=== PATIENT | female | born 1945 | race Caucasian/White ===

== ENCOUNTER → 2019-06-08 08:51 | Outpatient (CLI) | payer MEDICARE, SELFPAY ==
[2019-06-08] VITALS (7 sets, daily range): BP systolic 100–124; BP diastolic 61–73; PULSE 73–87; RESP 16–18; TEMP 36.1–36.4; O2SAT 96–99; BMI 24.7
== END ==
PROVIDERS: Referring Provider Internal Medicine Hematology & Oncology; Visit Provider Internal Medicine Hematology & Oncology
DX: D64.9 Anemia, unspecified (principal)
CPT/HCPCS: 36430; 86850; 86900; 86901; 86920; 86922; J7040; P9016; A4216

== ENCOUNTER 2019-06-28 07:13 | Day surgery (SDC) | payer MEDICARE, SELFPAY ==
[2019-06-08 10:08] VITALS: BMI 24.7
--- NOTE | 2019-06-27 18:38 | PCM.HP.BLA ---
History and Physical Date of Admission: 06/28/19 Stefanie Rod 1945 ? ? REFERRING PHYSICIAN: Medardo Harden, ? CHIEF COMPLAINT: Consult ? HPI: The patient is a 74 year old female presents with exhausted vascular access and need for portacath placement as recommended by her radiation oncologist She denies previous central venous line catheter placements. Denies history of deep venous extremity blood thromboses. Denies history of clavicular/rib/neck fractures. Presently on prednisone short term for pain. Attempt at [facility] was unsuccessful due to anatomic anomaly. Will attempt right IJ placement using US guidance. ? ? PAST MEDICAL HISTORY ? Anemia ? ? Anxiety disorder ? ? Blood dyscrasia ? ? myelodysplastic syndrom ? Chronic diarrhea ? ? since cholecystectomy in 2004, on colestipol ? Crohn's disease (HCC) ? ? s/p surgery ? Emphysema of lung (HCC) ? ? quit smoking September 2015, stable, not on inhalers ? Hypertension ? ? Intrahepatic cholangiocarcinoma (HCC) ? ? MVP (mitral valve prolapse) ? ? Snoring ? ? PAST SURGICAL HISTORY ? LIVER BIOPSY ? 10/08/2015 ? PAST SURGICAL HISTORY OF ? 1973 ? exploratory and small bowel resection ? PAST SURGICAL HISTORY OF ? 1977 ? ileostomy ? PAST SURGICAL HISTORY OF ? 1978 ? reversal of ileostomy ? PAST SURGICAL HISTORY OF ? 1983 ? bowel block and adhesions removed ? PAST SURGICAL HISTORY OF ? 1982 ? hysterectomy ? PAST SURGICAL HISTORY OF ? 2004 ? cholecytectomy ? TOTAL HIP REPLACEMENT ? 2011 ? Left hip ? ? Current Outpatient Medications ? gabapentin (NEURONTIN) 300 mg capsule Take 1 capsule by mouth twice daily for 30 days. ? ibuprofen (MOTRIN) 600 mg tablet Take 1 tablet by mouth every 8 hours as needed. FOR PAIN. ? predniSONE (DELTASONE) 10 mg tablet Take 1.5 tablets by mouth once daily. ? LORazepam (ATIVAN) 0.5 mg tab Take 0.5 mg by mouth three times daily as needed. ? omeprazole (PRILOSEC) 20 mg capsule Take 2 capsules by mouth once daily. ? ondansetron (ZOFRAN) 8 mg tablet Take 1 tablet by mouth every 8 hours as needed. ? epoetin kayli-epbx (RETACRIT) 40,000 unit/mL injection Inject 40,000 Units subcutaneously. Every week for HGB <10 ? cyanocobalamin 1,000 mcg/mL soln Inject 1,000 mcg intramuscularly once every month. ? APRISO 0.375 gram capsule Take two capsules by mouth once daily. ? ARIPiprazole (ABILIFY) 10 mg tablet Take 10 mg by mouth once daily. ? metoprolol tartrate, short acting, (LOPRESSOR) 25 mg tablet Take 25 mg by mouth once daily. ? potassium chloride ER (K-DUR, KLOR-CON) 20 mEq tablet Take 1 tablet by mouth once daily. ? fluticasone (FLONASE) 50 mcg/actuation nasal spray Use 2 Sprays in each nostril as needed. ? ZOLMitriptan (ZOMIG) 5 mg tablet Take 5 mg by mouth as needed. ? Hydrochlorothiazide 12.5 mg capsule Take 12.5 mg by mouth once daily. ? LACTOBACILLUS RHAMNOSUS GG (CULTURELLE ORAL) Take 1 capsule by mouth once daily. ? COLESTIPOL 1 GRAM TAB Take two tablets by mouth twice daily. ? duloxetine hcl(CYMBALTA 60 MG CAP) Take one(1) capsule daily BY MOUTH. ? multivitamins w-minerals/lut(CENTRUM SILVER TAB) Take one(1) tablet daily BY MOUTH. ? calcium carb/vit d3/minerals(CALTRATE 600+D PLUS MINERALS 600 MG (1,500 MG)-400 UNIT CHEWABLE TAB) Take one(1) ? cetirizine hcl(ZYRTEC 10 MG TAB) Take one tablet by mouth once daily as needed. ? ? ALLERGIES: Erythromycin; Levaquin [Levofloxacin]; Penicillins; Prednisone; Sulfa (Sulfonamide Antibiotics) ? PERSONAL HISTORY: Tobacco Use ? Smoking status: Former Smoker ? ? Packs/day: 1.00 ? ? Years: 45.00 ? ? Pack years: 45.00 ? ? Types: Cigarettes ? ? Last attempt to quit: 10/07/2015 ? ? Years since quittin.7 ? Smokeless tobacco: Never Used Substance Use Topics ? Alcohol use: No ? ? Comment: rarely ? Drug use: No ? FAMILY HISTORY ? Emphysema Mother ? ? Heart Mother ? ? Hypertension Father ? ? Heart Father ? ? other (Lung Cancer) Father ? ? other (Lung Cancer) Sister ? ? Heart Brother ? ? ? Nursing Notes: Stephani Howell RN 06/22/2019 2:12 PM Signed REVIEW OF SYSTEMS: General: The patient notes fatigue, denies weight loss, denies weight gain, denies feeling hot, and denies feelings of cold. Eyes: The patient denies glaucoma, denies eye injury/surgery, wears glasses or contacts. Ear/Nose/Throat: The patient notes allergies, denies hayfever, denies ear infections, and denies bloody noses. Cardiovascular: The patient denies chest pain, denies heart disease, notes high blood pressure,denies cardiac stent, denies prior heart attack, denies irregular heart beat, denies high cholesterol, denies poor circulation, denies heart failure, other cardiac issues, denies claudication, denies cold feet, denies peripheral arterial stent. Respiratory: The patient denies tuberculosis, denies pneumonia, denies frequent cough, denies pulmonary embolism, notes shortness of breath, and denies coughing up blood. Gastrointestinal: The patient denies difficulty swallowing, notes acid reflux, denies ulcers, denies vomiting, denies jaundice/hepatitis, denies gallbladder problems, denies black or tarry stools, denies hemorrhoids, denies bleeding from rectum, denies diverticulitis, denies constipation, notes diarrhea, denies loss of stool control, and denies hernias. Kidney/Bladder: The patient denies kidney stones, denies urine infections, and denies bloody urine. Skin: The patient denies a history of skin cancer, denies bleeding/changing moles, and denies a history of skin rash. Neurologic: The patient denies a history of epilepsy/convulsions, denies headaches, denies head/spinal injuries, and denies stroke/TIA. Psychiatric: The patient denies psychiatric medications, notes depression, and denies voices, denies substance abuse. Endocrine: The patient denies thyroid disorders, denies diabetes, and denies hormonal problems. Hematologic: The patient denies a history of bruising, denies bleeding, and denies anemia, denies blood clots. Infections: The patient denies a history of measles and mumps, denies rheumatic fever, and denies sexually transmitted diseases. Musculoskeletal: The patient denies back pain/injury, notes back problems, denies sciatica, denies knee/foot trouble, denies arthritis, or denies gout. ? ? PHYSICAL EXAMINATION: General: The patient is 74 year old female, well nourished, well hydrated in no acute distress. The patient is oriented to time, place, and person. VITALS: Blood pressure 124/70, pulse (!) 131, temperature 36.3 ?C (97.3 ?F), temperature source Temporal Artery, weight 65.3 kg (144 lb), SpO2 99 %. Body mass index is 25.32 kg/m?. Head ? Normocephalic. EOM intact with sclera clear and no icterus noted. Wearing glasses. Mouth with mucus membranes moist. Neck - supple with no jugular venous distention noted. Trachea is midline. No masses noted. Lungs ? clear to auscultation. Normal breath sounds No rales/rhonchi/wheezing noted. No labored breathing noted, such as retractions. No cough heard. Heart ? normal S1 and S2 auscultated. No rubs/clicks/murmurs noted. Regular rate. Abdomen ? soft and benign. Normal bowel sounds. No abdominal bruits noted. Extremities ? no calf tenderness noted. No pitting edema noted. Skin ? normal skin integrity though loss of dermal integrity, easy bruising noted Lymph ? no cervical adenopathy detected, no supraclavicular adenopathy detected Neurological ? gait normal, no focal deficits noted. Psych ? calm and appropriate ? IMPRESSION: need for vascular access ? PLAN: I have discussed the above with the patient. I have shown her a sample of the portacath and shown her how it would be positioned, etc. I have offered placement of portacath. I have explained the procedure to the patient. I have counseled the patient as to the risks of the procedure, including but not limited to: infection, bleeding, injury to any blood vessels/nerves, thromboses of the portacath, infection of the portacath, inability to place the portacath, scar tissue, wound infections, complications of anesthesia, etc. ? the patient understands. The patient wishes to proceed. Attempted placement at [facility] was aborted due to anatomical anomaly. Will attempt right IJ placement with US guidance. I have answered all questions to the patient?s satisfaction and the patient has no further questions. . Diagnoses: (C22.1) Intrahepatic cholangiocarcinoma (HCC) (primary encounter diagnosis) (Z45.2) Exhausted vascular access Return to Clinic: The patient is instructed to follow-up with me after the procedure
[2019-06-28] VITALS (7 sets, daily range): BP systolic 111–127; BP diastolic 60–69; PULSE 66–75; RESP 16–18; TEMP 36.2–36.6; O2SAT 98–100; BMI 26.1
[2019-06-28] MEDS: Lactated Ringers 1,000 ML 75 ML IV (05:00)
--- NOTE | 2019-06-28 08:51 | DCINST_ITS ---
Discharge Diet: No Restrictions Discharge Activity: Return to Normal Activity, May not drive while taking narcotic pain medications. Call your doctor if your incision/area has: Continuous Slow Oozing, Foul Smelling Discharge Call your doctor if you observe: Fever of 101 or Higher Additional Dressing/Incision Instructions:: Leave dressings in place. The access catheter dressing will be removed by the oncology nurses after they have finished using your portacath. After this is done, you may shower and leave the remaining dressing in place until seen by the oncology nurses again in the following week. Do not soak - no tub baths/swimming Allergies/Adverse Reactions: Allergies erythromycin base Allergy (Verified 06/27/19 11:47) Other levofloxacin [From Levaquin] Allergy (Verified 06/27/19 11:47) Other Penicillins Allergy (Verified 06/27/19 11:47) Other prednisone Allergy (Verified 06/27/19 11:47) Other Sulfa (Sulfonamide Antibiotics) Allergy (Verified 06/27/19 11:47) Other Medications to take at Discharge Calcium Carb/Vitamin D [Os-Williams 500MG + D] 1 tablet PO DAILY@0800 #30 tablet 12/22/15 Colestipol Tablet [Colestid Tablet] 2 gm PO BID #120 tablet 12/22/15 Fluticasone 0.05% [Flonase Nasal [place]] 2 spray NASAL DAILY PRN #1 nasal.sry 12/22/15 Lactobacillus Acidophilus [Acidophilus] 1 tablet PO BID #60 tablet 12/22/15 Pantoprazole Sodium [Protonix] 40 mg PO DAILY #30 tablet 12/22/15 hydroCHLOROthiazide [Hydrochlorothiazide] 12.5 mg PO DAILY #30 capsule 12/22/15 Gabapentin [Neurontin] 300 mg PO BID 06/08/19 Aripiprazole [Abilify] 5 mg PO DAILY 06/27/19 Dexamethasone [Decadron] 4 mg PO DAILY 06/27/19 Duloxetine Hcl [Cymbalta] 2 cap PO DAILY 06/27/19 Metoprolol Tartrate [Lopressor (beta kory)] 25 mg PO DAILY 06/27/19 Primary Care Physician: ELEONORA BALES [Other] Test Results: Test results from this visit will be discussed in further detail at your follow- up appointment, if applicable. Please Follow Up With: Maty Swanson MD - call When: to be seen in 10-14 days for wound check, please call for date and time
--- NOTE | 2019-06-28 08:54 | OP.PCM_ITS ---
Report of Operation Date of Procedure: 06/28/19 Pre-Operative Diagnosis: cholangiocarcinoma, need for IV access Post-Operative Diagnosis: same Surgery/Procedure Performed:: placement of permanent indwelling catheter in right internal jugular vein with subcutaneous port Description of Surgical Findings:: normal right IJ anatomy to SVC Type of Anesthesia:: Local MAC Anesthesiologist: Jarek Antonio Specimen's removed: none Estimated Blood Loss (mL): < 10 ml Fluids Replaced: 600 ml RL Description of Procedure: After informed consent was given, the patient was brought to the Operating Room. Appropriate time out protocol was followed. She was then placed in the supine position. She was then given IV conscious sedation for anesthesia. The patient?s upper chest and neck were then prepped with a surgical skin preparation and sterile surgical drapes were placed. After proper landmarks were ascertained, the skin at the right neck and upper right chest area was then infiltrated with 1% xylocaine with epinephrine. The ultrasound transducer was brought into the operative field for real time imaging. The right internal jugular vein was thus easily identified and localized. A needle trocar was then inserted into the right internal jugular vein using the ultrasound transducer for guidance and there was good aspiration of venous blood. A wire was then threaded into the needle trocar and this was visualized under fluoroscopy to ensure that the wire was in the right internal jugular vein. Once this was done, then the needle trocar was removed. A small skin addy was made with an 11 blade knife at the wire entrance site. The dilator with the introducer sheath attached was then placed over the wire into the right internal jugular vein via the Seldinger technique and this was visualized under fluoroscopy. The dilator and sheath were in proper position as visualized by fluoroscopy. The wire and dilator were then removed. The catheter was then threaded into the introducer sheath and was positioned with its tip at the junction of the superior vena cava and the right atrium as visualized under fluoroscopy. The catheter was flushed with a heparin saline mixture prior to placement. A subcutaneous pocket was then created caudad to the catheter insertion site. A transverse skin incision was made after the skin and subcutaneous tissues were infiltrated with local anesthetic. Blunt dissection was then used to create a space large enough for placement of the subcutaneous port. Hemostasis was carefully controlled with electrocautery. The port was sutured to the subcutaneous fascia using vicryl suture at three sites. The catheter was then tunneled into the subcutaneous pocket. The excess catheter was transected. The catheter was then attached to the subcutaneous port using manager labor relations?s guidelines. The port was then placed in the subcutaneous pocket and the sutures were ligated. The subdermal incisional sites were reapproximated with interrupted vicryl suture. The skin was reapproximated with monocryl suture in a subcuticular fashion. Cavilon and steristrips were used for reinforcement of the skin closure and a sterile opsite dressing was applied. The butterfly access needle was then inserted into the port. Aspiration revealed good influx of blood and the port and access tubing were then flushed with heparinized saline. The patient tolerated the procedure well. Grafts/Implants Used: Bard PowerPort 8F ref [id number], lot [id number], exp 2020-10-10 - Complications none noted - Admit VTE Documentation VTE Present on Admission: Yes VTE Mechan Device Prophylaxis: SCD's
--- NOTE | 2019-06-28 10:07 | RAD_ITS ---
STUDY: X-RAY CHEST REASON FOR EXAM: Female, 74 years old. PORT PLACEMENT TECHNIQUE: Single AP portable view of the chest. COMPARISON: None. FINDINGS: A right-sided portacatheter has been placed. The tip is in the proximal portion of the superior vena cava. Hyperinflation. There is no demonstrated pleural abnormality. Normal size heart. Normal mediastinum and latoya. Normal visualized pulmonary arteries. There is atherosclerotic tortuosity of the aortic arch and descending thoracic aorta. Normal visualized thoracic spine. Normal visualized ribs, clavicles, and shoulders. Surgical clips are seen in the right upper quadrant. RAD/CXR for Line Placement IMPRESSION: The tip of the right-sided portacatheter is in the proximal portion of the superior vena cava. Electronically Signed: Bernard Doyle, at 10:35 EST , Service support ,
== END 2019-06-28 11:10 | disposition home or self-care (01) ==
LOC: SDC 07:14 → AC 07:16
PROVIDERS: Referring Provider Surgery; Visit Provider Surgery
PROC: (CPT 36561; principal; 2019-06-28 08:45)
DX: Z45.2 Encounter for adjustment and management of vascular access device (principal); C22.1 Intrahepatic bile duct carcinoma; D64.9 Anemia, unspecified; F41.9 Anxiety disorder, unspecified; K50.90 Crohn's disease, unspecified, without complications; J43.9 Emphysema, unspecified; I10 Essential (primary) hypertension; I34.1 Nonrheumatic mitral (valve) prolapse; K21.9 Gastro-esophageal reflux disease without esophagitis; G43.909 Migraine, unspecified, not intractable, without status migrainosus; Z78.0 Asymptomatic menopausal state; Z79.899 Other long term (current) drug therapy; Z87.891 Personal history of nicotine dependence
CPT/HCPCS: 00532; 36561; 71045; 77001; J7120; C1788

== ENCOUNTER → 2019-07-27 08:50 | Outpatient (CLI) | payer MEDICARE, SELFPAY ==
[2019-06-28 07:45] VITALS: BMI 26.1
[2019-07-27] VITALS (8 sets, daily range): BP systolic 98–105; BP diastolic 51–87; PULSE 93–115; RESP 16; TEMP 36.3–36.9; O2SAT 98–100; BMI 24.0
== END ==
PROVIDERS: Referring Provider Internal Medicine Hematology & Oncology; Visit Provider Internal Medicine Hematology & Oncology
DX: D46.9 Myelodysplastic syndrome, unspecified (principal)
CPT/HCPCS: 36430; 86850; 86900; 86901; 86920; 86922; J7040; P9016; A4216

== ENCOUNTER → 2019-09-14 09:47 | Outpatient (CLI) | payer MEDICARE, SELFPAY ==
[2019-07-27 09:13] VITALS: BMI 24.0
[2019-09-14 10:09] VITALS: BP 118/57; PULSE 103; RESP 18; TEMP 37.1; O2SAT 100; BMI 25.7
[2019-09-14] MEDS: 0.9% NaCl Peripheral Flush Adult/Peds IV (10:21)
[2019-09-14 10:38] VITALS: BP 105/55; PULSE 88; RESP 18; TEMP 36.8
[2019-09-14 11:38] VITALS: BP 110/50; PULSE 79; RESP 16; TEMP 36.4
[2019-09-14 12:34] VITALS: BP 99/43; PULSE 75; RESP 16; TEMP 36.3; O2SAT 100
== END ==
PROVIDERS: Referring Provider Internal Medicine Hematology & Oncology; Visit Provider Internal Medicine Hematology & Oncology
DX: D46.9 Myelodysplastic syndrome, unspecified (principal)
CPT/HCPCS: 36430; 86850; 86900; 86901; 86920; 86922; J7040; P9016; A4216

== ENCOUNTER 2019-10-03 16:14 | Emergency (ER) | payer MEDICARE, SELFPAY ==
[2019-09-14 10:09] VITALS: BMI 25.7
[2019-10-03 16:16] VITALS: BP 127/93; PULSE 80; RESP 17; TEMP 36.8; O2SAT 100; BMI 26.2
--- NOTE | 2019-10-03 16:23 | VDLE_ITS ---
Reason For Study: swelling Procedure LEFT Exam performed portable in ED. GSV is normal. The exam was abbreviated due to the COVID 19 CFV is compressible, spontaneous, phasic, protocol. competent, and demonstrates normal The exam was diagnostic. augmentation. A preliminary report was called and/or faxed FV is compressible, spontaneous, phasic, to Dr. Wiseman. competent and demonstrates normal augmentation. POP V is compressible, spontaneous, phasic, competent and demonstrates normal augmentation. T/P Trunk is compressible. PTV is compressible. LT PerV is compressible. Interpretation Summary Deep veins of the left lower extremity are patent and compressible segmentally. There is no evidence of left lower extremity deep vein thrombosis. Valvular competence appears intact within the proximal deep venous system on the left . The left great saphenous vein appears patent and compressible segmentally. Ordering Physician: Lalo Wiseman Performed By: Wood Murillo RVT
--- NOTE | 2019-10-03 16:27 | ED.VIS.GEN ---
History of Present Illness Chief Complaint: Lower Extremity Injury Informant: Patient Onset: Days Narrative: Nontraumatic left lower extremity swelling over the past year and a half. Pain worse with ambulation. No chest pains or new shortness of breath. States his history of emphysema. No history of PE or DVT. No recent travel, surgeries, or immobilizations. History of intrahepatic cholangiocarcinoma diagnosed 4 years ago however metastasized this past fall to her spine status post radiation. No chemotherapy. Followed by Dr. Harden. Patient discussed with RN at Dr. Harden's office today return to the ED for evaluation. Denies any fever. Prior similar symptoms: No Past Medical History - Allergies and Home Meds Allergies/Adverse Reactions: Allergies erythromycin base Allergy (Verified 10/03/19 16:15) Other levofloxacin [From Levaquin] Allergy (Verified 10/03/19 16:15) Other Penicillins Allergy (Verified 10/03/19 16:15) Other prednisone Allergy (Verified 10/03/19 16:15) Other Sulfa (Sulfonamide Antibiotics) Allergy (Verified 10/03/19 16:15) Other Primary Care Physician: [facility] ,Out of [Primary Care Provider] - Past Medical History: - - Intrahepatic cholangiocarcinoma, Crohn's disease, COPD, anemia, hypertension, mitral valve prolapse Surgical History: cholecystectomy, hysterectomy, total hip arthroplasty - Left, - - Small bowel resection, ileostomy, reversal of ileostomy, lysis of adhesions. Smoking Status: Former smoker - Family History Maternal Family History: Reports: No pertinent history Paternal Family History: Reports: No pertinent history Review of Systems General: Denies: Chills, Fever, Sweats Eyes: Denies: Visual changes - bilaterally, Diplopia ENT: Denies: Rhinorrhea, Sore throat Cardiovascular: Denies: Chest pain, Palpitations Respiratory: Denies: Dyspnea, Cough, Dyspnea on exertion Gastrointestinal: Denies: Abdominal pain, Nausea, Vomiting, Diarrhea, Melena, Hematochezia Genitourinary: Denies: Dysuria, Hematuria, Frequency Musculoskeletal: Reports: Swelling. Denies: Back pain, Extremity Pain Skin: Denies: Rash, Wounds Neurological: Denies: Headache, Weakness, Numbness Physical Exam Vital Signs/Narrative: Vital Signs Temp Pulse Resp BP Pulse Ox 10/03/19 16:16 98.2 F 80 17 127/93 H 100 Inital Vital Signs reviewed: Yes General: Well nourished, Well developed, No Acute Distress Head: Normocephalic, Atraumatic Eyes: Perrl, EOMI ENT: Moist mucous membranes, No rhinorrhea Neck: Supple, Nontender Cardiovascular: Regular rate, Regular rhythm, No murmurs Respiratory: No distress, CTA bilaterally, Chest nontender Abdomen: Soft, Nontender, Nondistended, Normal bowel sounds Back: Nontender, Normal Inspection Extremities: Nontender, - - Asymmetric 1+ left lower extremity swelling, skin intact, no calf or medial thigh pain. Pulses intact distally. Skin: Normal color, No rash Neurological: Alert, Oriented x3, Cranial nerves II-XII grossly intact, Normal Strength, Normal Sensation Psychological: Normal affect, Normal Mood Diagnostic/Tx/Re-eval Left lower extremity ultrasound: Discussed with residential air sealing technician, negative for DVT. - Medical Decision Making Patient with cancer history, nontraumatic left leg swelling, discussed rule out DVT. She denies any respiratory complaints that are new, vital signs are stable. Ultrasound was ordered, initial order for baseline labs in case anticoagulations were needed. However ultrasound was performed prior to blood draw and results were negative. Discussed peripheral edema at this time, Edward wrap and elevation discussed. Discussed with patient persistent swelling or worsening will likely need re-ultrasound as an outpatient in 1 week. Patient understands and agrees with plan. ED Disposition - Plan for ED Patient: Disposition: Home or Assisted Living Diagnosis: Peripheral edema Instructions: ED Peripheral Edema, Unilateral Referrals: Medardo Harden DO [STAFF PHYSICIAN] - 1 Week [facility] Doctor,Out of [Primary Care Provider] - 3-5 Days Additional Instructions: Ultrasound of your left leg was negative for DVT. Maintain Edward wrap and elevate, if worsening or persists, may need re-ultrasound of left leg in 1 week.
[2019-10-03 17:00] VITALS: BP 108/54; PULSE 74; RESP 18; O2SAT 100
== END 2019-10-03 17:00 | disposition home or self-care (01) ==
LOC: ED 16:51
PROVIDERS: Emergency Provider Emergency Medicine; PCP Internal Medicine Hematology & Oncology
DX: R60.0 Localized edema (principal); J44.9 Chronic obstructive pulmonary disease, unspecified; K50.90 Crohn's disease, unspecified, without complications; I34.1 Nonrheumatic mitral (valve) prolapse; D64.9 Anemia, unspecified; I10 Essential (primary) hypertension; C22.1 Intrahepatic bile duct carcinoma; Z90.49 Acquired absence of other specified parts of digestive tract; Z79.899 Other long term (current) drug therapy; Z87.891 Personal history of nicotine dependence
CPT/HCPCS: 93971; 99282

== ENCOUNTER 2021-06-17 13:50 | Observation (INO) | payer MEDICARE, SELFPAY ==
[2021-06-17] VITALS (10 sets, daily range): BP systolic 116–139; BP diastolic 62–69; PULSE 105–125; RESP 16–28; TEMP 36.6–36.8; O2SAT 97–100; BMI 25.0; BMI 25.8
--- NOTE | 2021-06-17 17:31 | EKG12_ITS ---
Test Reason : SOB Blood Pressure : / mmHG Vent. Rate : 117 BPM Atrial Rate : 117 BPM P-R Int : 158 ms QRS Dur : 076 ms QT Int : 314 ms P-R-T Axes : 071 021 074 degrees QTc Int : 438 ms Sinus tachycardia Low voltage QRS Poor R wave progression Anteroseptal [place], age undetermined Confirmed by MARY ANN CAMACHO, YOHANNES ([id number]), newspaper or periodical editor YADIRA LEON ([id number]) on 06/24/2021 10:47:59 AM Referred By: TIFFANIE Confirmed By:YOHANNES REESE MD
--- NOTE | 2021-06-17 17:39 | ED.VIS.DYS ---
HPI History of Present Illness Chief Complaint: Shortness of Breath Informant: patient Onset/Context/Timing Onset: Days Context: gradual Timing: Continuous Quality: Positive for Dyspnea on exertion Current Severity: Mild Maximum Severity: Moderate Worsened by: Exertion Relieved by: Rest Associated Symptoms Negative for cough, rhinorrhea, post nasal drip, ear pain, fever, sore throat, subjective, chills, sweats, clear sputum, white sputum, yellow sputum or green sputum Chest Pain: Positive for None Narrative Narrative: 76-year-old female history of liver cancer with metastases, anemia that required transfusion in the past, COPD without oxygen at home. History of hypertension mitral valve prolapse. No cardiac history. Has never had a DVT or PE. States has had shortness of breath the last for 5 days. Worse with exertion better with rest. Denies any chest pain. No fever or chills. No new cough or sputum. Really no significant wheezing. She has had mild swelling of both ankles in the last 4 to 5 days also. No hemoptysis. No vomiting diarrhea nor any dysuria. PE Risk Factors: Positive for Cancer; Negative for OCP + Smoking + > 35, Prior DVT or PE, Recent immobilization, Recent surgery and Recent travel Prior similar symptoms: No Recent Illness/Hospitalization: No PFSH [facility] Medical History Liver cancer Metastasis Pulmonary embolism Home Medications acidophilus-pectin, citrus 1 tab PO BID #60 tablet 12/22/15 [Rx Last Taken Unknown] calcium carbonate-vitamin D3 [Oyster Shell Calcium-Vit D3] 1 tab PO DAILY@0800 #30 tablet 12/22/15 [Rx Last Taken Unknown] colestipol [Colestid] 2 g PO BID #120 tablet 12/22/15 [Rx Last Taken 06/28/19 05:35] fluticasone propionate 2 spray NASAL DAILY PRN #1 nasal.sry 12/22/15 [Rx Last Taken Unknown] hydrochlorothiazide 12.5 mg PO DAILY #30 capsule 12/22/15 [Rx Last Taken Unknown] pantoprazole 40 mg PO DAILY #30 tablet 12/22/15 [Rx Last Taken Unknown] gabapentin 300 mg PO BID 06/08/19 [History Last Taken Unknown] aripiprazole 5 mg PO DAILY 06/27/19 [History Last Taken Unknown] dexamethasone 4 mg PO DAILY 06/27/19 [History Last Taken Unknown] duloxetine 2 cap PO DAILY 06/27/19 [History Last Taken Unknown] metoprolol tartrate 25 mg PO DAILY 06/27/19 [History Last Taken Unknown] enoxaparin 60 mg SUBCUT BID 06/17/21 [History Last Taken Unknown] Allergy/AdvReac Type Severity Reaction Status Date / Time erythromycin base Allergy Other Verified 06/17/21 13:55 levofloxacin [From Levaquin] Allergy Other Verified 06/17/21 13:55 Penicillins Allergy Other Verified 06/17/21 13:55 prednisone Allergy Other Verified 06/17/21 13:55 Sulfa (Sulfonamide Allergy Other Verified 06/17/21 13:55 Antibiotics) Social History Smoking Status: Former smoker ROS ROS ED ROS Narrative Denies recent illness. Review of Systems ROS Unobtainable: Denies due to encephalopathy Constitutional Constitutional ED: Denies chills, fever(s) or sweats Eyes Eyes: Denies change in vision ENT ENT ED: Denies ear pain or rhinorrhea Cardiovascular Cardiovascular: Denies chest pain, palpitations or racing heartbeat Respiratory/Chest Respiratory/Chest: Reports dyspnea; Denies cough or sputum Gastrointestinal Gastrointestinal: Denies abdominal pain, diarrhea, nausea or vomiting Genitourinary Genitourinary ED: Denies dysuria or hematuria Musculoskeletal Musculoskeletal: Denies myalgias Integumentary Denies rash Neurologic Neurologic: Denies headache(s) Psychiatric Psychiatric: Denies depression Endocrine Endocrinology: Denies polyuria Hematologic/Lymphatic Hematologic/Lymphatic: Denies easy bruising Allergic/Immunologic Allergic/Immunologic ED: Denies urticaria EXAM Physical Exam Narrative Exam Narrative: 76 yo female vital signs stable she is tachycardic at 125. Pulse ox is 99% on room air no hypoxia. HEENT exam unremarkable. Moist mucous membranes. Neck nontender no JVD. No lymphadenopathy. Lungs clear to auscultation bilaterally. Heart tachycardic rate about 125. No murmur appreciated. Abdomen is soft nontender normal bowel sounds no peritoneal signs. Chest wall nontender. Right sided MediPort. Moving all 4 extremities. Calves are nontender. Trace edema both ankles bilaterally. Normal motor strength upper and lower extremities. Back nontender. Neurologically she is awake and alert with no focal motor deficits. Const Vital Signs: 06/17/21 13:52 06/17/21 17:18 06/17/21 17:42 Temperature 97.8 F Temperature Source Temporal Pulse Rate 125 H 123 H Respiratory Rate 16 23 H Respiratory Effort Short of Breath Labored Respiratory Depth Normal Respiratory Pattern Normal Blood Pressure 129/69 H Blood Pressure Mean 89 Pulse Ox 99 100 98 Oxygen Delivery Method Room Air Room Air Room Air 06/17/21 17:43 06/17/21 18:20 06/17/21 19:51 Temperature 98.0 F 98.0 F Temperature Source Oral Oral Pulse Rate 118 H 116 H 117 H Respiratory Rate 20 H 23 H 28 H Respiratory Effort Respiratory Depth Respiratory Pattern Blood Pressure 128/62 H 131/66 H 139/65 H Blood Pressure Mean 84 87 89 Pulse Ox 98 98 99 Oxygen Delivery Method Room Air Room Air Positive well nourished and well developed; Negative for obese, cachectic, contractures or unkempt General Appearance ED: well developed and NAD; Negative for unkempt, cachectic, contractures or pallor Nutritional Appearance: Negative for cachectic or obese HEENT Reports moist mucous membranes atraumatic; Negative for trauma or tenderness Eyes PERRL and EOMs intact bilaterally Neck no lymphadenopathy, supple, no meningeal signs and no JVD General: Negative for tenderness Resp normal respiratory effort and clear to auscultation bilaterally Auscultation: Negative for rales, rhonchi or wheezes Cardio regular rhythm, S1 normal heart sound, S2 normal heart sound and no murmurs; Negative for regular rate Rate: tachycardic GI non-tender, non-distended and no masses Auscultation: normoactive bowel sounds; Negative for hyperactive bowel sounds or hypoactive bowel sounds Palpation: soft; Negative for tender, guarding or rebound tenderness present Back/Spine no CVA tenderness and normal to inspection General Back: Negative for CVA tenderness or tenderness Extremity normal to inspection Extremity Narrative: Trace bilateral ankle edema. Calves nontender. No cords. General Extremety ED: Yes edema; Negative for tenderness General Extremity: edema Neuro oriented x3 Sensorium / Orientation: alert, oriented to person, oriented to place and oriented to time; Negative for orientation impaired, confused, lethargic or stuporous Motor Exam: strength 5/5 throughout Psych mental status grossly normal Appearance: Negative for unkempt Attitude: No agitated Mood & Affect: Negative for depressed or tearful Thought Process: normal thought process Skin no wounds General Skin Exam: Negative for jaundice or pallor Lesions: no lesions Rashes: no rashes MDM MDM MDM Narrative Medical decision making narrative: 76-year-old female with exertional dyspnea last 5 days. Denies chest pain. She has a history of COPD but says this feels different. I do not hear any wheezing. She also has liver cancer with metastases. Pneumonia versus pleural effusion versus PE or cardiac etiology are all in the differential diagnosis. Labs and x-rays are pending. Due to her anemia she will be typed and crossed. I will also obtain a CTA of the chest to rule out PE. Patient doing well at 8 PM I spoken to the hospitalist she will be admitted. She has been typed and crossed and will receive transfusions once the blood is ready. Lab Data Attestation: I reviewed the patient's lab results. Lab results narrative: CBC shows a white count of 2.5. Hemoglobin is 7.4. Prior hemoglobin was 10.8 I believe after transfusion. Platelets of 124. Electrolytes show a gap of 10 BUN is 18 creatinine 1.54 glucose of 322 troponin is 7. Chest x-ray is unremarkable. BNP was normal at 10.5. CT of the chest showed no PE. Radiologist read infiltrates clinically the patient does not have pneumonia and the chest x-ray was unremarkable. Labs: Laboratory Results - last 24 hr 06/17/21 06/17/21 06/17/21 17:51 17:51 17:51 WBC 2.5 L RBC 2.23 L Hgb 7.4 L Hct 22.6 L MCV 101.3 H MCH 33.2 H MCHC 32.7 RDW Std Deviation 59.7 H RDW Coeff of Edson 17.0 H Plt Count 124 L MPV 10.1 Neut % (Auto) Not Reportable Absolute Neuts (auto) 2.0 Absolute Lymphs (auto) 0.37 L Total Counted 100 Neutrophils % (Manual) 74 H Band Neutrophils % 6 H Lymphocytes % (Manual) 15 L Monocytes % (Manual) 4 Metamyelocytes % 1 Nucleated RBCs/100 WBC 1 Diff Path Review May foll Platelet Estimate SLT DEC Polychromasia 1+ Anisocytosis 1+ Macrocytosis 1+ Sodium 139 Potassium 4.2 Chloride 108 H Carbon Dioxide 21.0 Anion Gap 10 BUN 18 Creatinine 1.54 H Estim Creat Clear Calc 24.96 Est GFR (MDRD) Af Amer 42 L Est GFR (MDRD) Non-Af 35 L BUN/Creatinine Ratio 11.7 Glucose 320 H Calcium 7.1 L Troponin I High Sens 7 B-Natriuretic Peptide 10.5 Crossmatch 06/17/21 19:44 WBC RBC Hgb Hct MCV MCH MCHC RDW Std Deviation RDW Coeff of Edson Plt Count MPV Neut % (Auto) Absolute Neuts (auto) Absolute Lymphs (auto) Total Counted Neutrophils % (Manual) Band Neutrophils % Lymphocytes % (Manual) Monocytes % (Manual) Metamyelocytes % Nucleated RBCs/100 WBC Diff Path Review Platelet Estimate Polychromasia Anisocytosis Macrocytosis Sodium Potassium Chloride Carbon Dioxide Anion Gap BUN Creatinine Estim Creat Clear Calc Est GFR (MDRD) Af Amer Est GFR (MDRD) Non-Af BUN/Creatinine Ratio Glucose Calcium Troponin I High Sens B-Natriuretic Peptide Crossmatch See Detail Radiography Chest X-Ray - ED: 1 View, Read by ED Physician, Heart, Lungs, Mediastinum, Bony Structures, No Acute Disease and Chronic Changes Diagnostic Testing: Clinical Impression(s) from Imaging Studies Chest X-Ray 06/17/21 17:54 IMPRESSION: There has been no change in the appearance of the chest since the prior study. Electronically Signed: Seth Cadena MD at 18:12 EST , Service support , Chest CTA 06/17/21 19:04 IMPRESSION: 1. No demonstrated pulmonary embolism or arterial dissection. 2. There is bilateral pneumonia. 3. There are sclerotic destructive lesions of T10 and T11. This is concerning for metastatic bone foci. There are overlying anterior vertebral body soft tissue masses. Electronically Signed: Seth Cadena MD at 20:02 EST , Service support , Rhythm Strip Rhythm Strip: Sinus Tach Rate: 117 Ectopy: None EKG Initial EKG: Attestation: I personally reviewed and interpreted this EKG as follows: Interpretation: No Acute Injury Pattern and Sinus Tachycardia Comments: Sinus tachycardia rate of 117 with low voltage. Prior EKG tracings: not available for review Discharge Plan Triage Chief Complaint: Shortness of Breath ED Provider: Leodan Pagan Dx/Rx/DC Orders Clinical Impression: Anemia, COPD (chronic obstructive pulmonary disease), Liver cancer, primary, with metastasis from liver to other site Prescriptions: No Action pantoprazole 40 MG tablet 40 mg PO DAILY Qty: 30 RF: 0 hydrochlorothiazide 12.5 MG capsule 12.5 mg PO DAILY Qty: 30 RF: 0 fluticasone propionate 1 SPRAY spray,suspension 2 spray NASAL DAILY PRN (Reason: Nasal Congestion) Qty: 1 RF: 0 colestipol [Colestid] 1 GM tablet 2 g PO BID Qty: 120 RF: 0 acidophilus-pectin, citrus 1 TABLET tablet 1 tab PO BID Qty: 60 RF: 0 calcium carbonate-vitamin D3 [Oyster Shell Calcium-Vit D3] 1 TABLET tablet 1 tab PO DAILY@0800 Qty: 30 RF: 0 gabapentin 300 MG capsule 300 mg PO BID RF: 0 aripiprazole 5 MG tablet 5 mg PO DAILY RF: 0 metoprolol tartrate 25 MG tablet 25 mg PO DAILY RF: 0 duloxetine 60 MG capsule 2 cap PO DAILY RF: 0 dexamethasone 4 MG tablet 4 mg PO DAILY RF: 0 enoxaparin 60 mg/0.6 mL syringe 60 mg subcut BID RF: 0 Primary Care Provider: Medardo Harden Referrals: Medardo Harden DO [Primary Care Provider] - Disposition Disposition: Acute Care [facility]
--- NOTE | 2021-06-17 17:54 | RAD_ITS ---
STUDY: X-RAY CHEST REASON FOR EXAM: Female, 76 years old. CHEST PAIN SOB / SOA chest pain TECHNIQUE: XR Chest 1 View COMPARISON: 06/28/2019 FINDINGS: There is no demonstrated pleural abnormality. There is a right Port-A-Cath and/or mediport in place. The tip is in the superior vena cava. Normal size heart. Normal mediastinum and latoya. Normal visualized pulmonary arteries. There is atherosclerotic calcification of the aortic arch with tortuosity. There are diffuse degenerative changes of the visualized thoracic spine. There is degenerative osteoarthritis of the bilateral shoulders. There is no demonstrated abnormality of the visualized soft tissue structures of the upper abdomen. RAD/Chest 1 View (Portable) IMPRESSION: There has been no change in the appearance of the chest since the prior study. Electronically Signed: Seth Cadena MD at 18:12 EST , Service support ,
[2021-06-17 18:02] LABS: Hematocrit 22.6 % (37-47); Hemoglobin 7.4 g/dL (12.0-15.0); Mean Corp Hgb Conc 32.7 g/dL (32-36); Mean Corpuscular Hgb 33.2 pg (27.0-32.0); Mean Corpuscular Volume 101.3 fL (81-99); Mean Platelet Vol. 10.1 fl (6.2-12.0); POSITIVE COUNT YES; POSITIVE DIFFERENTIAL YES; POSITIVE MORPHOLOGY YES; Platelet Count 124 K/mm3 (150-450); RBC Distribution Width SD 59.7 fl (35.1-43.9); Red Blood Count 2.23 M/mm3 (4.2-5.4); White Blood Count 2.5 K/mm3 (4.4-11.0)
[2021-06-17 18:07] LABS: Differential Indicated MANUAL DIFF
[2021-06-17 18:19] LABS: Anion Gap 10 (5-15); BUN 18 mg/dL (7-18); BUN/Creat Ratio 11.7 RATIO (10-20); Calcium,Total 7.1 mg/dL (8.5-10.1); Chloride 108 mmol/L (98-107); Creatinine, Serum 1.54 mg/dL (0.55-1.02); EST Glomerular Filtration Rate 35 mL/min (>60); Est Glom Filt Rate - Afr Amer 42 mL/min (>60); Estimated Creatinine Clearance 24.96 ml/min; Glucose 320 mg/dL (74-106); Potassium 4.2 mmol/L (3.5-5.1); Sodium Level 139 mmol/L (136-145); Troponin-I HS 7 pg/mL (3.0-54.0)
[2021-06-17 18:40] LABS: Lymphocyte 15 % (19-41); Metamyelocyte 1 % (0-1); Monocyte 4 % (0-10); Neutrophil-Band 6 % (0-5); Neutrophil-Segmented 74 % (47-70); Nucleated Red Bld Cells,Manual 1 % (0-5); Platelet Estimate SLT DEC (ADEQ); Total Cells Counted 100 (MANUAL DIFF)
[2021-06-17 18:41] LABS: Anisocytosis 1+; Macrocytosis 1+; Polychromasia 1+
--- NOTE | 2021-06-17 19:04 | CT_ITS ---
EXAM: CT ANGIOGRAPHY CHEST WITHOUT AND WITH INTRAVENOUS CONTRAST CLINICAL INDICATION: dyspnea Technologist Notes Other, HX:HTN,COPD,LIVER CANCER WITH METS TO SPINE,MVP,CROHN''S TECHNIQUE: Helically acquired angiography images were obtained of the chest without and with intravenous contrast. This CT exam was performed using one or more of the following dose reduction techniques: automated exposure control, adjustment of the mA and/or kV according to patient size, and/or use of iterative reconstruction technique. This report was created using [employer] report generation technology. MIP reconstructed images were created and reviewed. CONTRAST: IV 100mL [id number] COMPARISON: None. FINDINGS: PULMONARY ARTERIES: No demonstrated pulmonary embolism or arterial dissection. AORTA: There is atherosclerotic calcification of the aortic arch with tortuosity and elongation of the aortic arch and descending thoracic aorta. Normal in caliber. No evidence of dissection. GREAT VESSELS OF AORTIC ARCH: Unremarkable. Normal in caliber. No evidence of dissection. LUNGS AND PLEURAL SPACES: There is bilateral pneumonia. No mass. No pleural effusion or thickening. HEART: Unremarkable. Heart size is normal. No pericardial effusion. No signs of right heart strain, ratio of right ventricle to left ventricle measures less than 1. MEDIASTINUM: Unremarkable. No mediastinal or hilar adenopathy. Esophagus is unremarkable. No hiatal hernia. THYROID: Unremarkable. No thyroid lesions. BONES/JOINTS: There are sclerotic destructive lesions of T10 and T11. This is concerning for metastatic bone foci. There are degenerative findings of the thoracic spine. TUBES, LINES AND DEVICES: There is a right Port-A-Cath and/or mediport in place. The tip is in the superior vena cava. CT/CTA Chest W/WO Contrast IMPRESSION: 1. No demonstrated pulmonary embolism or arterial dissection. 2. There is bilateral pneumonia. 3. There are sclerotic destructive lesions of T10 and T11. This is concerning for metastatic bone foci. There are overlying anterior vertebral body soft tissue masses. Electronically Signed: Seth Cadena MD at 20:02 EST , Service support ,
[2021-06-17 19:06] LABS: BNP,B-Type NATRIURETIC PEPTIDE 10.5 pg/mL (0-100)
[2021-06-17 19:58] LABS: Absolute Lymphocyte Count 0.37 X10^3/uL (0.83-4.51); Lymphocyte # 0.37 X10^3/ul (0.83-4.51); Neutrophil # 2.01 X10^3/uL (2.7-7.7)
--- NOTE | 2021-06-17 20:03 | PCM.HP.STD ---
HPI - General HPI Narrative SINGH NYE, is a 76 F with a significant history of metastatic liver cancer status post surgery and stereotactic radiation; chronic disease pulmonary embolism and chronic anemia who presents with 5 days of progressively worsening dyspnea on exertion. At rest she denies any shortness of breath but with mild exertion she has dyspnea. She reports a 2 pillow orthopnea?no change. She denies paroxysmal nocturnal dyspnea. She reports palpitations. Reportedly with exertion she checks her pulse and her pulse is in the 130s. She reports diarrhea for just actually improving. She denies any blood in her stools. [facility] Medical History (Updated 06/17/21 @ 20:[address] Paras Boogie MD) Liver cancer Metastasis Pulmonary embolism Home Medications acidophilus-pectin, citrus 1 tab PO BID #60 tablet 12/22/15 [Rx Last Taken Unknown] calcium carbonate-vitamin D3 [Oyster Shell Calcium-Vit D3] 1 tab PO DAILY@0800 #30 tablet 12/22/15 [Rx Last Taken Unknown] colestipol [Colestid] 2 g PO BID #120 tablet 12/22/15 [Rx Last Taken 06/28/19 05:35] fluticasone propionate 2 spray NASAL DAILY PRN #1 nasal.sry 12/22/15 [Rx Last Taken Unknown] hydrochlorothiazide 12.5 mg PO DAILY #30 capsule 12/22/15 [Rx Last Taken Unknown] pantoprazole 40 mg PO DAILY #30 tablet 12/22/15 [Rx Last Taken Unknown] gabapentin 300 mg PO BID 06/08/19 [History Last Taken Unknown] aripiprazole 5 mg PO DAILY 06/27/19 [History Last Taken Unknown] dexamethasone 4 mg PO DAILY 06/27/19 [History Last Taken Unknown] duloxetine 2 cap PO DAILY 06/27/19 [History Last Taken Unknown] metoprolol tartrate 25 mg PO DAILY 06/27/19 [History Last Taken Unknown] enoxaparin 60 mg SUBCUT BID 06/17/21 [History Last Taken Unknown] Allergy/AdvReac Type Severity Reaction Status Date / Time erythromycin base Allergy Other Verified 06/17/21 13:55 levofloxacin [From Levaquin] Allergy Other Verified 06/17/21 13:55 Penicillins Allergy Other Verified 06/17/21 13:55 prednisone Allergy Other Verified 06/17/21 13:55 Sulfa (Sulfonamide Allergy Other Verified 06/17/21 13:55 Antibiotics) Family History Other COPD (chronic obstructive pulmonary disease) Cancer Surgical History H/O: hysterectomy History of bowel resection Hx of cholecystectomy Social History Smoking Status: Former smoker ROS ROS Narrative Constitutional: Reports fatigue. Denies fever, chills, anorexia and change in weight Eyes: Denies blurry vision, change in eye color, change in vision, discharge from eye(s), double vision, erythema, eye pain, loss of vision or other HEENT: Denies abnormal hearing, dysphagia, ear pain, epistaxis, headache(s), hearing loss, nasal congestion, nasal discharge, post nasal drip, sinus pressure, sore throat or other Cardiovascular: Report palpitations. Denies chest pain Respiratory/Chest: Reports shortness of breath. Denies cough, excessive phlegm production. Gastrointestinal: Reports diarrhea. Denies abdominal pain, coffee ground emesis, constipation, dyspepsia, hematemesis, hematochezia, melena, nausea, vomiting or other Genitourinary: Denies burning urination, difficulty urinating, dysuria, hematuria, nocturia, urinary frequency, urinary hesitancy, urinary incontinence, urinary urgency or other Musculoskeletal: Denies arthralgias, back pain, joint pain, joint stiffness, joint swelling, myalgias, neck pain or other Neurologic: Denies abnormal gait, abnormal speech, confusion, disequilibrium, dizziness, focal weakness, headache(s), numbness, paresthesias, seizure-like activity, seizures, syncope, tingling, tremor(s) or other Psychiatric: Denies anxiety, depression, homicidal ideation, suicidal ideation or other Endocrinology: Denies change in body appearance, cold intolerance, excessive sweating, heat intolerance, polydipsia, polyuria or other Hematologic/Lymphatic: Denies anemia, easy bleeding, easy bruising, lymphadenopathy or other Integumentary: Denies rashes Allergic/Immunologic: Denies rhinitis, hives, eczema, asthma or other Vital Signs Vital Signs Vital Signs: 06/17/21 13:52 06/17/21 17:18 06/17/21 17:42 Temperature 97.8 F Temperature Source Temporal Pulse Rate 125 H 123 H Respiratory Rate 16 23 H Respiratory Effort Short of Breath Labored Respiratory Depth Normal Respiratory Pattern Normal Blood Pressure 129/69 H Blood Pressure Mean 89 Pulse Ox 99 100 98 Oxygen Delivery Method Room Air Room Air Room Air 06/17/21 17:43 06/17/21 18:20 06/17/21 19:51 Temperature 98.0 F 98.0 F Temperature Source Oral Oral Pulse Rate 118 H 116 H 117 H Respiratory Rate 20 H 23 H 28 H Respiratory Effort Respiratory Depth Respiratory Pattern Blood Pressure 128/62 H 131/66 H 139/65 H Blood Pressure Mean 84 87 89 Pulse Ox 98 98 99 Oxygen Delivery Method Room Air Room Air Weight Weight: 62.142 kg Body Mass Index (BMI) 25.0 Physical Exam Narrative Physical exam: General: Well-nourished, well-developed. Head: Normocephalic, atraumatic, no tenderness Eyes: PERRLA, EOMI ENT, no trauma, moist mucous membranes, no rhinorrhea Neck: Nontender, full range of motion, no spinal tenderness, deformities, step-off CVS: Tachycardia. S1-S2 present. No murmur, gallop or rub. Respiratory : Tachypnea. Chest wall nontender, no wheezing Abdomen: Soft, nontender, nondistended, normal bowel sounds, no masses : Deferred Back: Nontender, no CVA tenderness, no midline spinal tenderness, deformities, step-offs Extremities: With bilateral lower legs and bilateral lower feet edema, 2+. Nontender full range of motion, no trauma Skin: Pallor; , no trauma, abrasions Neuro: Alert, oriented, cranial nerves II through XII grossly intact. Psychiatry: Normal mood. Normal affect. Not depressed. Not anxious. Results Lab / Micro Data Result Diagrams: 06/17/21 17:51 06/17/21 17:51 Labs: Laboratory Results - last 24 hr 06/17/21 17:51: WBC 2.5 L, RBC 2.23 L, Hgb 7.4 L, Hct 22.6 L, MCV 101.3 H, MCH 33.2 H, MCHC 32.7, RDW Std Deviation 59.7 H, RDW Coeff of Edson 17.0 H, Plt Count 124 L, MPV 10.1, Neut % (Auto) Not Reportable, Absolute Neuts (auto) 2.0, Absolute Lymphs (auto) 0.37 L, Total Counted 100, Neutrophils % (Manual) 74 H, Band Neutrophils % 6 H, Lymphocytes % (Manual) 15 L, Monocytes % (Manual) 4, Metamyelocytes % 1, Nucleated RBCs/100 WBC 1, Diff Path Review October, Platelet Estimate SLT DEC, Polychromasia 1+, Anisocytosis 1+, Macrocytosis 1+ 06/17/21 17:51: Sodium 139, Potassium 4.2, Chloride 108 H, Carbon Dioxide 21.0, Anion Gap 10, BUN 18, Creatinine 1.54 H, Estim Creat Clear Calc 24.96, Est GFR (MDRD) Af Amer 42 L, Est GFR (MDRD) Non-Af 35 L, BUN/Creatinine Ratio 11.7, Glucose 320 H, Calcium 7.1 L, Troponin I High Sens 7 06/17/21 17:51: B-Natriuretic Peptide 10.5 Micro: Microbiology 06/17/21 15:28 Nasal Secretion SARS-CoV-2 Antigen (Rapid) - Final Rhythm Strip Rhythm Strip: Sinus Tach Rate: 117 Ectopy: None Radiology Impression Chest X-Ray 06/17/21 17:54 IMPRESSION: There has been no change in the appearance of the chest since the prior study. Electronically Signed: Seth Cadena MD at 18:12 EST , Service support , Assessment & Plan Assessment/Plan (1) Symptomatic anemia: (2) Acute kidney injury superimposed on CKD: PLAN: Symptomatic acute anemia on chronic macrocytic anemia. Chest CTA interpreted by radiologist showed bilateral pneumonia. Actual chest CTA image interpreted by myself and emergency department doctor did not show any clear evidence of pneumonia. Clinically patient has no fever; chills or cough to make pneumonia unlikely. Emergent department labs showed hemoglobin was 7.4. MCV of 101.3. Community records reviewed showed that labs were obtained on 06/15/2021. At that time iron level was 56 (n 41-188); total iron binding capacity was 288 (232-386); transferrin saturation was 19 (15-57); ferritin level was 2139 (14.7-205.1). She has received blood transfusion in the past with her last blood transfusion in December 2020. Occult stools ordered. 2 units of packed red blood cells was ordered at the emergency department to be transfused. Will trend CBC. Pancytopenia Aside low hemoglobin of 7.4; white count is 2.5 and platelet is 124. Will trend CBC. [place] on CKD stage IIIa Community records reviewed showed that on 06/15/2021 her creatinine was 1.11 and GFR was 48. Creatinine on presentation was 1.54. Blood transfusion as above. Gentle IV hydration. Trend BMP. Avoid nephrotoxins. Home hydrochlorothiazide held. Hyperglycemia Review of labs showed a glucose of 320. Will get A1c. On home Decadron likely contributing. Accu-Chek with correction scale insulin ordered. DVT prophylaxis: Not indicated as patient is on therapeutic treatment of PE with Lovenox. Lovenox has been continued. Charges/Coding Visit Charges OBSV E&M: 11568 Initial observation care L3
--- NOTE | 2021-06-17 21:11 | ED.RN ---
Son reports to PHOTOGRAPHY COORDINATOR at time of transfer that PT is going into a care home on Tuesday and they will need a copy of this admission chart faxed to them when she gets admitted to [facility]. Son was notified by me that Social Work will be involved in her care here and we should be able to get all records to her new facility.
[2021-06-17 21:32] LABS: Ferritin 1898 ng/mL (8-252); Iron 47 ug/dL (50-170); Iron Binding Capacity,Total 311 ug/dL (250-450); PERCENT IRON SATURATION 15.1 % (15.0-55.0)
--- NOTE | 2021-06-17 21:40 | ED.RN ---
ECF: Raya at [facility] ([place]) , ATTM: Beba.
[2021-06-17 22:35] LABS: Bedside Glucose 156 mg/dL (70-110)
[2021-06-17] MEDS: Enoxaparin 60 MG/0.6 ML Syringe SC (22:36)
[2021-06-17] MEDS: Insulin Lispro 100 UNIT/ML INSULN.PEN SC (22:36)
[2021-06-17] MEDS: 0.9% Saline Lock 10 ML Syringe IV (22:36)
[2021-06-18] VITALS (10 sets, daily range): BP systolic 123–141; BP diastolic 71–83; PULSE 81–98; RESP 16–18; TEMP 36.3–36.6; O2SAT 97–100
[2021-06-18] MEDS: 0.9% Normal Saline 1,000 ML 60 ML IV (03:26)
[2021-06-18 06:50] LABS: Bedside Glucose 119 mg/dL (70-110)
[2021-06-18 06:57] LABS: Absolute Lymphocyte Count 0.69 X10^3/uL (0.83-4.51); Absolute Neutrophil Count 1.4 X10^3/uL (2.0-7.7); Basophil# 0.03 X10^3/uL; Basophil% 1.1 % (0-1); Hematocrit 29.8 % (37-47); Lymphocyte # 0.69 X10^3/ul (0.83-4.51); Lymphocyte % 24.3 % (19-41); Mean Corp Hgb Conc 33.6 g/dL (32-36); Mean Corpuscular Hgb 31.9 pg (27.0-32.0); Mean Corpuscular Volume 95.2 fL (81-99); Monocyte# 0.63 X10^3/uL; Monocyte% 22.2 % (0-10); NRBC Flagged by Analyzer 2.5 % (0-5); Neutrophil # 1.36 X10^3/uL (2.7-7.7); Neutrophil % 47.8 % (47-70); Platelet Count 124 K/mm3 (150-450); RBC Distribution Width SD 52.1 fl (35.1-43.9); Red Blood Count 3.13 M/mm3 (4.2-5.4); White Blood Count 2.8 K/mm3 (4.4-11.0)
[2021-06-18 07:21] LABS: Hemoglobin A1c 5.9 % (3.8-5.6)
[2021-06-18 07:31] LABS: Anion Gap 9 (5-15); BUN 16 mg/dL (7-18); BUN/Creat Ratio 14.3 RATIO (10-20); Calcium,Total 7.3 mg/dL (8.5-10.1); Chloride 113 mmol/L (98-107); Creatinine, Serum 1.12 mg/dL (0.55-1.02); EST Glomerular Filtration Rate 50 mL/min (>60); Est Glom Filt Rate - Afr Amer 61 mL/min (>60); Estimated Creatinine Clearance 34.33 ml/min; Glucose 120 mg/dL (74-106); Potassium 3.5 mmol/L (3.5-5.1); Sodium Level 142 mmol/L (136-145)
[2021-06-18] MEDS: Calcium Carb/Vitamin D 1 TABLET Tablet PO (07:53)
[2021-06-18] MEDS: dexAMETHasone 4 MG Tablet PO (07:54)
[2021-06-18] MEDS: ARIPiprazole 5 MG Tablet PO (10:03)
[2021-06-18] MEDS: Metoprolol Tartrate 25 MG Tablet PO (10:04)
[2021-06-18] MEDS: DULoxetine Hcl 60 MG Capsule 120 MG PO (10:04)
[2021-06-18] MEDS: Pantoprazole Sodium 40 MG Tablet PO (10:05)
[2021-06-18] MEDS: Enoxaparin 60 MG/0.6 ML Syringe SC (10:05)
--- NOTE | 2021-06-18 10:54 | PCM.PN.HOSP ---
Subjective Subjective Doing well, feels better than when she came in. Hemoglobin has increased to 10 but she only received 1 unit of packed red blood cells says the seem like little bit of an overcorrection. Objective Data Objective Data Vital Signs: Vital Signs Temp Pulse Resp BP Pulse Ox 97.4 F L 95 16 141/83 H 100 06/18/21 10:00 06/18/21 10:04 06/18/21 10:00 06/18/21 10:00 06/18/21 10:00 Oxygen Delivery Method Room Air Weight: 141 lb 1.533 oz Body Mass Index (BMI) 25.8 Intake & Output: Intake and Output for Last 24 Hours 06/17/21 06/18/21 06/19/21 03:59 03:59 03:59 Intake Total 430 / 430 Balance 430 / 430 Lab / Micro Data Result Diagrams: 06/18/21 06:45 06/18/21 06:45 Labs: Laboratory Results - last 24 hr 06/17/21 17:51: WBC 2.5 L, RBC 2.23 L, Hgb 7.4 L, Hct 22.6 L, MCV 101.3 H, MCH 33.2 H, MCHC 32.7, RDW Std Deviation 59.7 H, RDW Coeff of Edson 17.0 H, Plt Count 124 L, MPV 10.1, Neut % (Auto) Not Reportable, Absolute Neuts (auto) 2.0, Absolute Lymphs (auto) 0.37 L, Total Counted 100, Neutrophils % (Manual) 74 H, Band Neutrophils % 6 H, Lymphocytes % (Manual) 15 L, Monocytes % (Manual) 4, Metamyelocytes % 1, Nucleated RBCs/100 WBC 1, Diff Path Review October, Platelet Estimate SLT DEC, Polychromasia 1+, Anisocytosis 1+, Macrocytosis 1+ 06/17/21 17:51: Sodium 139, Potassium 4.2, Chloride 108 H, Carbon Dioxide 21.0, Anion Gap 10, BUN 18, Creatinine 1.54 H, Estim Creat Clear Calc 24.96, Est GFR (MDRD) Af Amer 42 L, Est GFR (MDRD) Non-Af 35 L, BUN/Creatinine Ratio 11.7, Glucose 320 H, Calcium 7.1 L, Troponin I High Sens 7 06/17/21 17:51: B-Natriuretic Peptide 10.5 06/17/21 17:51: Iron 47 L, TIBC 311, Iron Saturation 15.1, Ferritin 1898 H, Folate 40.60 06/17/21 19:44: Blood Type O POSITIVE, Antibody Screen NEGATIVE, Crossmatch See Detail 06/17/21 22:32: POC Glucose 156 H 06/18/21 06:40: POC Glucose 119 H 06/18/21 06:45: WBC 2.8 L, RBC 3.13 L, Hgb 10.0 L, Hct 29.8 L, MCV 95.2 D, MCH 31.9, MCHC 33.6, RDW Std Deviation 52.1 H, RDW Coeff of Edson 16.0 H, Plt Count 124 L, MPV 10.0, Immature Gran % (Auto) 4.600 H, Neut % (Auto) 47.8, Lymph % (Auto) 24.3, [place] % (Auto) 22.2 H, Eos % (Auto) 0.0, Baso % (Auto) 1.1 H, Absolute Neuts (auto) 1.4 L, Absolute Lymphs (auto) 0.69 L, Nucleated RBC % 2.5 06/18/21 06:45: Sodium 142, Potassium 3.5, Chloride 113 H, Carbon Dioxide 20.0 L, Anion Gap 9, BUN 16, Creatinine 1.12 H, Estim Creat Clear Calc 34.33, Est GFR (MDRD) Af Amer 61, Est GFR (MDRD) Non-Af 50 L, BUN/Creatinine Ratio 14.3, Glucose 120 H, Calcium 7.3 L 06/18/21 06:45: Hemoglobin A1c 5.9 H Micro: Microbiology 06/17/21 15:28 Nasal Secretion SARS-CoV-2 Antigen (Rapid) - Final Radiography Diagnostic Testing: Radiology Impression Chest X-Ray 06/17/21 17:54 IMPRESSION: There has been no change in the appearance of the chest since the prior study. Electronically Signed: Seth Cadena MD at 18:12 EST , Service support , Chest CTA 06/17/21 19:04 IMPRESSION: 1. No demonstrated pulmonary embolism or arterial dissection. 2. There is bilateral pneumonia. 3. There are sclerotic destructive lesions of T10 and T11. This is concerning for metastatic bone foci. There are overlying anterior vertebral body soft tissue masses. Electronically Signed: Seth Cadena MD at 20:02 EST , Service support , Rhythm Strip Rhythm Strip: Sinus Tach Rate: 117 Ectopy: None Physical Exam Const alert, oriented x3 and no apparent distress General Appearance: cooperative HEENT normocephalic and moist oral mucous membranes Eyes PERRL, EOMs intact bilaterally and conjunctivae normal Neck supple and no JVD Resp normal respiratory effort, no retractions, no use of accessory muscles and clear to auscultation bilaterally Auscultation: Negative for crackles, rales, rhonchi or wheezes Cardio regular rate, regular rhythm, S1 normal heart sound, S2 normal heart sound and no murmurs GI soft to palpation, non-tender and non-distended; Negative for hepatosplenomegaly Extremity General Extremity: edema; Negative for clubbing or cyanosis Skin no rashes or lesions noted Neuro no focal motor deficits and no sensory deficits noted Psych affect normal Appearance: appropriate Assessment & Plan Assessment/Plan (1) Symptomatic anemia: (2) Acute kidney injury superimposed on CKD: PLAN: 1. Symptomatic acute on chronic macrocytic anemia/pancytopenia ? Could be due to nutritional deficiency versus chemotherapy induction versus GI bleed ? She did have some loose BMs today so hopefully will be able to send for fecal occult ? Hemoglobin this morning was at 10, on admission her hemoglobin was 7.4. This does mimic what happened over the summer, though at that time she was not started on chemotherapy ? We will repeat a hemoglobin. ? I do favor a chemotherapy-induced anemia secondary to the fact that her iron levels on outpatient were normal and she had a pancytopenic picture 2. A[place]A on CKD 3a ? AUG[place]A has resolved Does we will continue to monitor renal function 3. HTN ? Blood pressure stable ? Can continue with her hydrochlorothiazide, and metoprolol 4. Metastatic liver cancer/anxiety/depression ? Continue with palliative chemotherapy ? Continue with her Cymbalta and Abilify DVT: Therapeutic Lovenox Charges/Coding Visit Charges OBSV E&M: 04599 Subsequent observation care L2
[2021-06-18] MEDS: Insulin Lispro 100 UNIT/ML INSULN.PEN SC ×2 (11:10→16:10)
[2021-06-18 11:25] LABS: Bedside Glucose 201 mg/dL (70-110)
[2021-06-18] MEDS: 0.9% Saline Lock 10 ML Syringe IV (12:13)
[2021-06-18 12:28] LABS: Hematocrit 32.8 % (37-47); Hemoglobin 11.1 g/dL (12.0-15.0)
--- NOTE | 2021-06-18 14:38 | CASEMGMT ---
Addendum entered by Nguyen Monsivais 06/18/21 15:46: Pt ready for discharge. Discharge instructions faxed to [facility] at [facility] and informed pt will admit to them tomorrow from home. ANAID Velásquez Original Note: Social Work SW received phone call from Neli at the [facility]. Neli states that pt will be moving into the special care unit of their assisted living tomorrow. Pt will be private pay, no insurance precert or PASRR needed. Pt Arvind will be moving into the facility on Tuesday. Per Neli, Pt has a dgt who is HCPOA and assisting pt with move. EZRA met with pt and introduced self and role of SW. Pt confirms plan to move to [place] tomorrow 06/19. Pt states if she is discharged today, she will return to her home for the night and move in to [place] tomorrow. If pt is not discharged today, she will discharge directly to the [facility] tomorrow. Pt confirms that her Daughter Karla [phone] has been assisting her and will provide transportation for either discharge plan. SW provided support to pt regarding move and lifestyle change. SW will fax discharge orders to [facility] when appropriate. Pt denies any further needs at this time. Candelario WORRELL
--- NOTE | 2021-06-18 15:13 | DS.PCM_ITS ---
Providers Date of Admission: 06/17/21 Primary Care Physician: Dr. Medardo Harden DO Reason For Visit: SOB Diagnosis Discharge Diagnosis (1) Symptomatic anemia: Status: Acute Code(s): D64.9 - Anemia, unspecified (2) Acute kidney injury superimposed on CKD: Status: Chronic Code(s): N17.9 - Acute kidney failure, unspecified; N18.9 - Chronic kidney disease, unspecified Medications at Discharge Home Medications acidophilus-pectin, citrus 1 tab PO BID #60 tablet 12/22/15 calcium carbonate-vitamin D3 [Oyster Shell Calcium-Vit D3] 1 tab PO DAILY@0800 #30 tablet 12/22/15 colestipol [Colestid] 2 g PO BID #120 tablet 12/22/15 pantoprazole 40 mg PO DAILY #30 tablet 12/22/15 aripiprazole 5 mg PO DAILY 06/27/19 dexamethasone 4 mg PO DAILY 06/27/19 duloxetine 120 mg PO DAILY 06/27/19 metoprolol tartrate 25 mg PO DAILY 06/27/19 enoxaparin 60 mg SUBCUT BID 06/17/21 hydrochlorothiazide 12.5 mg PO DAILY 06/17/21 Hospital Course Operations None Procedures Blood transfusion Summary of Care Provided Minutes Spent on Discharge: 40 Hospital Course: Per HPI: SINGH NYE, is a 76 F with a significant history of metastatic liver cancer status post surgery and stereotactic radiation; chronic disease pulmonary embolism and chronic anemia who presents with 5 days of progressively worsening dyspnea on exertion. At rest she denies any shortness of breath but with mild exertion she has dyspnea. She reports a 2 pillow orthopnea?no change. She denies paroxysmal nocturnal dyspnea. She reports palpitations. Reportedly with exertion she checks her pulse and her pulse is in the 130s. She reports diarrhea for just actually improving. She denies any blood in her stools. Hospital Course: 1. Symptomatic acute on chronic macrocytic anemia/pancytopenia ? Could be due to nutritional deficiency versus chemotherapy induction versus GI bleed ? She did have some loose BMs today so hopefully will be able to send for fecal occult ? Hemoglobin this morning was at 10, on admission her hemoglobin was 7.4. This does mimic what happened over the summer, though at that time she was not started on chemotherapy ? We will repeat a hemoglobin. ? I do favor a chemotherapy-induced anemia secondary to the fact that her iron levels on outpatient were normal and she had a pancytopenic picture 06/18/2021: Repeat hemoglobin 11.1, she says that her shortness of breath has resolved and feels much better today. I did have extensive discussion with her oncologist who is okay with her discharge and feels that a lot of her anemia is likely multifactorial given her myelodysplastic disease as well as her chemotherapy. She also has a history of Crohn's disease and though she has been having diarrhea she states that she has not seen any blood and that they have not been dark. Fecal occult is pending collection here however she did correct her hemoglobin from 7.4-11.1 this afternoon after I believe only 1 unit of blood. I discussed with her the plan for discharge today she expressed understanding of risk and benefits of going home and would like to go home today. 2. AUGUSTA on CKD 3a ? AUGUSTA has resolved 3. HTN ? Blood pressure stable ? Can continue with her hydrochlorothiazide, and metoprolol 4. 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 Continue with palliative chemotherapy ? Continue with her Cymbalta and Abilify Weight / BMI Weight Weight: 141 lb 1.533 oz Body Mass Index (BMI) 25.8 ABG / Lab / Microbiology Data Result Diagrams: 06/18/21 12:00 06/18/21 06:45 Laboratory: Laboratory Results - last 24 hr 06/17/21 17:51: WBC 2.5 L, RBC 2.23 L, Hgb 7.4 L, Hct 22.6 L, MCV 101.3 H, MCH 33.2 H, MCHC 32.7, RDW Std Deviation 59.7 H, RDW Coeff of Edson 17.0 H, Plt Count 124 L, MPV 10.1, Neut % (Auto) Not Reportable, Absolute Neuts (auto) 2.0, Absolute Lymphs (auto) 0.37 L, Total Counted 100, Neutrophils % (Manual) 74 H, Band Neutrophils % 6 H, Lymphocytes % (Manual) 15 L, Monocytes % (Manual) 4, Metamyelocytes % 1, Nucleated RBCs/100 WBC 1, Diff Path Review May foll, Platelet Estimate SLT DEC, Polychromasia 1+, Anisocytosis 1+, Macrocytosis 1+ 06/17/21 17:51: Sodium 139, Potassium 4.2, Chloride 108 H, Carbon Dioxide 21.0, Anion Gap 10, BUN 18, Creatinine 1.54 H, Estim Creat Clear Calc 24.96, Est GFR (MDRD) Af Amer 42 L, Est GFR (MDRD) Non-Af 35 L, BUN/Creatinine Ratio 11.7, Glucose 320 H, Calcium 7.1 L, Troponin I High Sens 7 06/17/21 17:51: B-Natriuretic Peptide 10.5 06/17/21 17:51: Iron 47 L, TIBC 311, Iron Saturation 15.1, Ferritin 1898 H, Folate 40.60 06/17/21 19:44: Blood Type O POSITIVE, Antibody Screen NEGATIVE, Crossmatch See Detail 06/17/21 22:32: POC Glucose 156 H 06/18/21 06:40: POC Glucose 119 H 06/18/21 06:45: WBC 2.8 L, RBC 3.13 L, Hgb 10.0 L, Hct 29.8 L, MCV 95.2 D, MCH 31.9, MCHC 33.6, RDW Std Deviation 52.1 H, RDW Coeff of Edson 16.0 H, Plt Count 124 L, MPV 10.0, Immature Gran % (Auto) 4.600 H, Neut % (Auto) 47.8, Lymph % (Auto) 24.3, [place] % (Auto) 22.2 H, Eos % (Auto) 0.0, Baso % (Auto) 1.1 H, Absolute Neuts (auto) 1.4 L, Absolute Lymphs (auto) 0.69 L, Nucleated RBC % 2.5 06/18/21 06:45: Sodium 142, Potassium 3.5, Chloride 113 H, Carbon Dioxide 20.0 L , Anion Gap 9, BUN 16, Creatinine 1.12 H, Estim Creat Clear Calc 34.33, Est GFR (MDRD) Af Amer 61, Est GFR (MDRD) Non-Af 50 L, BUN/Creatinine Ratio 14.3, Glucose 120 H, Calcium 7.3 L 06/18/21 06:45: Hemoglobin A1c 5.9 H 06/18/21 11:07: POC Glucose 201 H 06/18/21 12:00: Hgb 11.1 L, Hct 32.8 L Microbiology: Microbiology 06/17/21 15:28 Nasal Secretion SARS-CoV-2 Antigen (Rapid) - Final Radiography Diagnostic Testing: Radiology Impression Chest X-Ray 06/17/21 17:54 IMPRESSION: There has been no change in the appearance of the chest since the prior study. Electronically Signed: Seth Cadena MD at 18:12 EST , Service support , Chest CTA 06/17/21 19:04 IMPRESSION: 1. No demonstrated pulmonary embolism or arterial dissection. 2. There is bilateral pneumonia. 3. There are sclerotic destructive lesions of T10 and T11. This is concerning for metastatic bone foci. There are overlying anterior vertebral body soft tissue masses. Electronically Signed: Seth Cadena MD at 20:02 EST , Service support , D/C Instructions Discharge Diet: No restrictions Call your doctor if you observe: Fever of 101 or Higher, Shortness of breath, Dizziness, Fainting spells, Swelling in the ankles, Chest pain and Increased palpitations (irregular heartbeat) Meaningful Use Info Meaningful Use Diagnoses (Choose all that apply): None applicable Discharge Plan Admission Admit Date/Time: 06/17/21 19:56 Attending Provider: Jethro Stephenson Primary Care Provider: Medardo Harden Discharge Orders/Prescriptions Prescriptions: Continued pantoprazole 40 MG tablet 40 mg PO DAILY Qty: 30 RF: 0 colestipol [Colestid] 1 GM tablet 2 g PO BID Qty: 120 RF: 0 acidophilus-pectin, citrus 1 TABLET tablet 1 tab PO BID Qty: 60 RF: 0 calcium carbonate-vitamin D3 [Oyster Shell Calcium-Vit D3] 1 TABLET tablet 1 tab PO DAILY@0800 Qty: 30 RF: 0 aripiprazole 5 MG tablet 5 mg PO DAILY RF: 0 metoprolol tartrate 25 MG tablet 25 mg PO DAILY RF: 0 duloxetine 60 MG capsule 120 mg PO DAILY RF: 0 dexamethasone 4 MG tablet 4 mg PO DAILY RF: 0 enoxaparin 60 mg/0.6 mL syringe 60 mg subcut BID RF: 0 hydrochlorothiazide 12.5 MG capsule 12.5 mg PO DAILY RF: 0 Referrals / Follow Up: Medardo Harden DO [Primary Care Provider] - Within 2 Weeks Disposition Disposition (needs filled in before D/C Order can be placed): Home, Self Care Charges/Coding Visit Charges OBSV E&M: 53501 Observation care discharge
[2021-06-18 16:15] LABS: Bedside Glucose 173 mg/dL (70-110)
[2021-06-19 10:01] LABS: Pathologist Review Reviewed
== END 2021-06-18 18:24 | disposition home or self-care (01) ==
LOC: ED 20:07 → MS2 20:44
PROVIDERS: Admitting Provider Hospitalist; Emergency Provider Emergency Medicine; PCP Internal Medicine Hematology & Oncology; Visit Provider Family Medicine
DX: D61.818 Other pancytopenia (principal); C79.89 Secondary malignant neoplasm of other specified sites; D46.9 Myelodysplastic syndrome, unspecified; C22.1 Intrahepatic bile duct carcinoma; N17.9 Acute kidney failure, unspecified; J44.9 Chronic obstructive pulmonary disease, unspecified; K50.90 Crohn's disease, unspecified, without complications; N18.31 Chronic kidney disease, stage 3a; D53.9 Nutritional anemia, unspecified; I12.9 Hypertensive chronic kidney disease with stage 1 through stage 4 chronic kidney disease, or unspecified chronic kidney disease; Z87.891 Personal history of nicotine dependence; Z79.899 Other long term (current) drug therapy; Z79.01 Long term (current) use of anticoagulants; Z86.711 Personal history of pulmonary embolism; R73.9 Hyperglycemia, unspecified; F41.9 Anxiety disorder, unspecified; F32.A Depression, unspecified; R00.0 Tachycardia, unspecified; R06.02 Shortness of breath
CPT/HCPCS: 36430; 36591; 71045; 71275; 80048; 82728; 82746; 82962; 83036; 83540; 83550; 83880; 84484; 85014; 85018; 85025; 86850; 86900; 86901; 86920; 86922; 87426; 93005; 96372; 97162; 97166; 99218; 99285; J7030; J7040; P9016; Q9967; A4216; G0378

== ENCOUNTER 2021-07-31 09:03 | Outpatient (CLI) | payer MEDICARE, SELFPAY ==
[2021-07-31 09:12] VITALS: BP 128/54; PULSE 124; RESP 16; TEMP 35.8; O2SAT 100
[2021-07-31] MEDS: 0.9% NaCl Peripheral Flush Adult/Peds IV (09:23)
[2021-07-31 09:42] VITALS: BP 110/51; PULSE 122; RESP 16; TEMP 35.7; O2SAT 100
[2021-07-31 10:42] VITALS: BP 114/65; PULSE 115; RESP 16; TEMP 35.6; O2SAT 100
[2021-07-31 11:42] VITALS: BP 123/67; PULSE 114; RESP 16; TEMP 35.8; O2SAT 98
== END 2021-07-31 23:59 | disposition home or self-care (01) ==
LOC: MEDOUTP 09:05
PROVIDERS: PCP Internal Medicine Hematology & Oncology; Referring Provider Internal Medicine Hematology & Oncology; Visit Provider Internal Medicine Hematology & Oncology
DX: D46.9 Myelodysplastic syndrome, unspecified (principal)
CPT/HCPCS: 36430; 86850; 86900; 86901; 86920; 86922; J7040; P9016; A4216

== ENCOUNTER 2021-11-23 16:03 | Emergency (ER) | payer MEDICARE, SELFPAY ==
[2021-11-23] VITALS (9 sets, daily range): BP systolic 111–126; BP diastolic 71–93; PULSE 95–161; RESP 13–20; TEMP 36.3; O2SAT 95–98; BMI 22.8
--- NOTE | 2021-11-23 16:28 | EKG12_ITS ---
Test Reason : HR Blood Pressure : / mmHG Vent. Rate : 152 BPM Atrial Rate : 152 BPM P-R Int : 136 ms QRS Dur : 072 ms QT Int : 246 ms P-R-T Axes : 056 -47 110 degrees QTc Int : 391 ms Sinus tachycardia Left axis deviation Low voltage QRS Inferior infarct , age undetermined Anterior-Lateral [place], age undetermined Abnormal ECG Confirmed by MARY ANN CAMACHO, YOHANNES ([id number]), deputy editor in chief YADIRA LEON ([id number]) on 11/25/2021 9:51:45 AM Referred By: Confirmed By:YOHANNES REEES MD
--- NOTE | 2021-11-23 16:29 | EX.ED.DYSGE1 ---
HPI History of Present Illness Chief Complaint: Nausea/Vomiting/Diarrhea Informant: patient Onset/Context/Timing Onset: Days (5) Context: Gradual Onset (after last chemotherapy infusion) Timing: Continuous Quality: nonbloody n/v/d Current Severity: Severe Maximum Severity: Severe Worsened by: trying to eat/drink Relieved by: nothing but hasn't had any medications for it except imodium - not helping Associated Symptoms Associated Symptoms: weak, fevers Tm 100.3 Narrative Narrative: Patient is getting chemotherapy and just had her fourth treatment last week, Tuesday through Tuesday, and that day she started having the symptoms of vomiting and diarrhea that have progressed over the weekend out today Tuesday she presents due to the inability to control it and feeling very dehydrated. She has been very lightheaded with standing no syncopal episodes. No chest pain shortness of breath palpitations, her heart rate has been fast but she does have a history of tachycardia. She has had some mild abdominal soreness but no other major pains or cramping. 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 Following with [facility] Dr. Harden with oncology. Daughter states that she has been at an assisted living facility recently, and although Phenergan was prescribed they have no record of it and do not have the medication. They try to remedy that by getting her Zofran today, she came to the ED before it was available to her. She has basically had no medications for nausea, she has not been back to the infusion center since her chemotherapy. [facility] Medical History Abnormal EKG Anemia Anxiety Bone cancer CKD (chronic kidney disease) COPD (chronic obstructive pulmonary disease) Depression Essential hypertension Hypertension Liver cancer Lung cancer MDS (myelodysplastic syndrome) Metastasis Pulmonary embolism Tachycardia Home Medications acidophilus-pectin, citrus 1 tab PO BID #60 tablet 12/22/15 [Rx Last Taken 06/16/21] pantoprazole 40 mg PO DAILY #30 tablet 12/22/15 [Rx Last Taken 06/16/21] aripiprazole 5 mg PO DAILY 06/27/19 [History Last Taken 06/16/21] metoprolol tartrate 25 mg PO DAILY 06/27/19 [History Last Taken 06/16/21] hydrochlorothiazide 12.5 mg PO DAILY 06/17/21 [History Last Taken 06/16/21] alendronate 70 mg tablet 70 mg PO QWEEK 10/15/21 [History Last Taken Unknown] bisphosphonate See Rx Instructions IV 10/15/21 [History Last Taken Unknown] cetirizine 10 mg tablet 10 mg PO DAILY PRN 10/15/21 [History Last Taken Unknown] colestipol 1 gram tablet 2 g PO BID tablet 10/15/21 [History Last Taken Unknown] cyanocobalamin (vitamin B-12) 1,000 mcg/mL injection solution 100 mcg IM QMONTH 10/15/21 [History Last Taken Unknown] duloxetine 60 mg capsule,delayed release 120 mg PO DAILY cap 10/15/21 [History Last Taken Unknown] fluticasone propionate 50 mcg/actuation nasal spray,suspension 2 spray INTRANASAL DAILY 10/15/21 [History Last Taken Unknown] folfox See Rx Instructions IV 10/15/21 [History Last Taken Unknown] lorazepam 0.5 mg tablet 0.5 mg PO TID PRN tab 10/15/21 [History Last Taken Unknown] mesalamine 500 mg capsule,extended release 1,000 mg PO .COMPLEX 10/15/21 [History Last Taken Unknown] multivitamin 1 tab PO DAILY 10/15/21 [History Last Taken Unknown] zolmitriptan 5 mg tablet See Rx Instructions PO .COMPLEX 10/15/21 [History Last Taken Unknown] Antacid 2 tablet PO/SL DAILY 11/23/21 [History Last Taken Unknown] Calcium Citrate + D 2 tablet PO/SL DAILY 11/23/21 [History Last Taken Unknown] cephalexin 500 mg PO Q6 #28 capsule 11/23/21 [Rx Last Taken Unknown] loperamide 4 mg PO/SL PRN PRN 11/23/21 [History Last Taken Unknown] melatonin 5 mg PO/SL QHS 11/23/21 [History Last Taken Unknown] oxybutynin chloride mg PO 11/23/21 [History Last Taken Unknown] polyethylene glycol 17 g PO/SL DAILY 11/23/21 [History Last Taken Unknown] promethazine 12.5 mg PO DAILY 11/23/21 [History Last Taken Unknown] tramadol 50 mg PO TID PRN 11/23/21 [History Last Taken Unknown] Allergy/AdvReac Type Severity Reaction Status Date / Time erythromycin base Allergy Other Verified 11/23/21 16:10 levofloxacin [From Levaquin] Allergy Other Verified 11/23/21 16:10 Penicillins Allergy Other Verified 11/23/21 16:10 prednisone Allergy Other Verified 11/23/21 16:10 Sulfa (Sulfonamide Allergy Other Verified 11/23/21 16:10 Antibiotics) Family History Other COPD (chronic obstructive pulmonary disease) Cancer Surgical History H/O: hysterectomy History of bowel resection History of resection of liver Hx of cholecystectomy Social History Smoking Status: Former smoker alcohol intake: never substance use type: does not use caffeine: Yes ROS ROS ED Constitutional Constitutional ED: Reports anorexia, fatigue, fever(s) and malaise; Denies chills Eyes Eyes: Denies change in vision or diplopia ENT ENT ED: Denies rhinorrhea or sore throat Cardiovascular Cardiovascular: Denies chest pain or palpitations Respiratory/Chest Respiratory/Chest: Denies cough or dyspnea Gastrointestinal Gastrointestinal: Reports abdominal pain, diarrhea, nausea and vomiting Genitourinary Genitourinary ED: Denies dysuria or hematuria Musculoskeletal Musculoskeletal: Denies back pain or neck pain Integumentary Denies abscess or rash Neurologic Neurologic: Denies headache(s), paresthesias or weakness Psychiatric Psychiatric: Denies anxiety or suicidal thoughts EXAM Physical Exam Const Vital Signs: 11/23/21 16:05 11/23/21 16:10 11/23/21 16:25 Temperature 97.4 F L Temperature Source Temporal Pulse Rate 161 H 154 H 150 H Respiratory Rate 18 18 15 Blood Pressure 111/88 H 120/93 H 119/93 H Blood Pressure Mean 95 102 101 Pulse Ox 97 96 96 Oxygen Delivery Method Room Air Room Air Room Air 11/23/21 16:41 11/23/21 17:04 11/23/21 18:00 Temperature Temperature Source Pulse Rate 143 H 134 H 128 H Respiratory Rate 13 14 17 Blood Pressure 120/79 124/84 H 122/71 H Blood Pressure Mean 92 97 88 Pulse Ox 95 97 97 Oxygen Delivery Method Room Air Room Air Room Air 11/23/21 18:56 11/23/21 19:28 Temperature Temperature Source Pulse Rate 132 H 125 H Respiratory Rate 16 16 Blood Pressure 117/73 112/82 H Blood Pressure Mean 87 92 Pulse Ox 98 98 Oxygen Delivery Method Room Air Room Air Positive well nourished and well developed General Appearance ED: well developed and NAD HEENT Reports moist mucous membranes normocephalic and atraumatic Eyes PERRL and EOMs intact bilaterally Neck full ROM and supple Resp normal respiratory effort and clear to auscultation bilaterally Effort and Inspection: able to speak in complete sentences Cardio regular rate, regular rhythm and no murmurs Rate: tachycardic GI non-distended GI Narrative: Mildly tender right upper quadrant without guarding or rebound tenderness. Auscultation: normoactive bowel sounds Palpation: soft Back/Spine no CVA tenderness General Back: other FROM Extremity normal to inspection General Extremety ED: Negative for edema, pulses abnormal or tenderness General Extremity: Negative for edema or pulses abnormal Neuro oriented x3, CN's II-XII intact bilaterally and no sensory deficits noted Sensorium / Orientation: awake and alert Motor Exam: strength 5/5 throughout Skin no rashes or lesions noted and no wounds MDM MDM MDM Narrative Medical decision making narrative: Patient was given IV fluids and Zofran she felt much better, her heart rate eventually gradually came down to the 120s. She does have history of a resting tachycardia. She felt much better, her labs show mild prerenal azotemia but she does not have significant [place]. Her urine appears to be infected which may explain the fever she was having. Started on Rocephin. Offered admission but the patient prefers to go home. She is feeling much better and tolerating oral fluids. She does not have leukopenia or neutropenia. She is currently doing well does not appear clinically septic. I discussed with Dr. Jones who was okay with that, I will put her on cephalexin given her list of allergies and the fact that her allergy to penicillin is only hives and not life-threatening. She has a very low likelihood of cross-reacting cephalosporin and Rocephin. Lab Data Attestation: I reviewed the patient's lab results. Labs: Laboratory Results - last 24 hr 11/23/21 11/23/21 11/23/21 16:23 16:23 16:40 WBC 4.7 RBC 4.56 Hgb 14.0 Hct 41.7 MCV 91.4 MCH 30.7 MCHC 33.6 RDW Std Deviation 50.9 H RDW Coeff of Edson 15.9 H Plt Count 96 L MPV 10.4 Immature Gran % (Auto) 0.400 Neut % (Auto) 52.0 Lymph % (Auto) 35.2 [place] % (Auto) 10.3 H Eos % (Auto) 0.8 Baso % (Auto) 1.3 H Absolute Neuts (auto) 2.5 Absolute Lymphs (auto) 1.67 Nucleated RBC % 0 Differential Comment SCANNED Sodium 139 Potassium 3.6 Chloride 107 Carbon Dioxide 21.0 Anion Gap 11 BUN 24 H Creatinine 1.22 H Estim Creat Clear Calc 31.51 Est GFR (MDRD) Af Amer 55 L Est GFR (MDRD) Non-Af 46 L BUN/Creatinine Ratio 19.7 Glucose 132 H Lactic Acid 0.9 Calcium 8.2 L Total Bilirubin 0.40 AST 17 ALT 14 Alkaline Phosphatase 124 H Total Protein 6.5 Albumin 2.4 L Globulin 4.1 Albumin/Globulin Ratio 0.6 L Urine Color Urine Clarity Urine pH Ur Specific [place] Urine Protein Urine Glucose (UA) Urine Ketones Urine Occult Blood Urine Nitrite Urine Bilirubin Urine Urobilinogen Ur Leukocyte Esterase Urine RBC Urine WBC Ur Squamous Epith Cells Urine Bacteria Urine Mucus 11/23/21 18:30 WBC RBC Hgb Hct MCV MCH MCHC RDW Std Deviation RDW Coeff of Edson Plt Count MPV Immature Gran % (Auto) Neut % (Auto) Lymph % (Auto) [place] % (Auto) Eos % (Auto) Baso % (Auto) Absolute Neuts (auto) Absolute Lymphs (auto) Nucleated RBC % Differential Comment Sodium Potassium Chloride Carbon Dioxide Anion Gap BUN Creatinine Estim Creat Clear Calc Est GFR (MDRD) Af Amer Est GFR (MDRD) Non-Af BUN/Creatinine Ratio Glucose Lactic Acid Calcium Total Bilirubin AST ALT Alkaline Phosphatase Total Protein Albumin Globulin Albumin/Globulin Ratio Urine Color Yellow Urine Clarity Cloudy Urine pH 6.0 Ur Specific [place] 1.020 Urine Protein 100 H Urine Glucose (UA) Normal Urine Ketones 150 A* Urine Occult Blood 25 H Urine Nitrite Negative Urine Bilirubin Negative Urine Urobilinogen Normal Ur Leukocyte Esterase 500 H Urine RBC 5-10 SEEN Urine WBC >100 SEEN Ur Squamous Epith Cells 10-25 SEEN Urine Bacteria 4+ Urine Mucus 0 SEEN Radiography Diagnostic Testing: Clinical Impression(s) from Imaging Studies Chest X-Ray 11/23/21 17:00 IMPRESSION: No acute cardiopulmonary process. Electronically Signed: Zay Marte MD at 17:27 EDT , Rhythm Strip Rhythm Strip: Sinus Tach Rate: 150 Ectopy: None EKG Initial EKG: Attestation: I personally reviewed and interpreted this EKG as follows: Interpretation: No Acute Injury Pattern and Sinus Tachycardia Discharge Plan Triage Chief Complaint: Nausea/Vomiting/Diarrhea ED Provider: Larry Saldana Dx/Rx/DC Orders Clinical Impression: Acute UTI, Intrahepatic cholangiocarcinoma, Tachycardia, Acute dehydration, Nausea, vomiting and diarrhea, Immunocompromised state due to drug therapy Instructions: ED CYSTITIS Female Adult Prescriptions: New cephalexin [cephalexin] 500 MG capsule 500 mg PO Q6 Qty: 28 RF: 0 No Action Pentasa 500 mg capsule, extended release 1,000 mg PO .COMPLEX RF: 0 colestipol [Colestid] 1 gram tablet 2 g PO BID RF: 0 alendronate 70 mg tablet 70 mg PO QWEEK RF: 0 cetirizine [Zyrtec] 10 mg tablet 10 mg PO DAILY PRNRF: 0 zolmitriptan [Zomig] 5 mg tablet See Rx Instructions PO .COMPLEX RF: 0 fluticasone propionate [Flonase Allergy Relief] 50 mcg/actuation spray,suspension 2 spray intranasal DAILY RF: 0 multivitamin Tablet 1 tab PO DAILY RF: 0 cyanocobalamin (vitamin B-12) 1,000 mcg/mL solution 100 mcg IM QMONTH RF: 0 lorazepam [Ativan] 0.5 mg tablet 0.5 mg PO TID PRN (Reason: Anxiety) RF: 0 folfox See Rx Instructions IV RF: 0 bisphosphonate See Rx Instructions IV RF: 0 pantoprazole 40 MG tablet 40 mg PO DAILY Qty: 30 RF: 0 acidophilus-pectin, citrus 1 TABLET tablet 1 tab PO BID Qty: 60 RF: 0 aripiprazole 5 MG tablet 5 mg PO DAILY RF: 0 metoprolol tartrate 25 MG tablet 25 mg PO DAILY RF: 0 duloxetine 60 mg capsule,delayed release(DR/EC) 120 mg PO DAILY RF: 0 hydrochlorothiazide 12.5 MG capsule 12.5 mg PO DAILY RF: 0 Antacid 2 tablet PO/SL DAILY RF: 0 oxybutynin chloride 10 mg tablet extended release 24hr PO RF: 0 tramadol 50 mg tablet 50 mg PO TID PRN (Reason: Pain) RF: 0 promethazine 25 mg tablet 12.5 mg PO DAILY RF: 0 Calcium Citrate + D 2 tablet PO/SL DAILY RF: 0 loperamide 4 mg PO/SL PRN PRN (Reason: Diarrhea) RF: 0 melatonin 5 mg PO/SL QHS RF: 0 polyethylene glycol 17 g PO/SL DAILY RF: 0 Referrals: VALERY BALES [Other] Medardo Harden DO [STAFF PHYSICIAN] - 3-5 Days Disposition Disposition: Home, Self Care
[2021-11-23] MEDS: 0.9% Normal Saline 1,000 ML 999 ML IV ×2 (16:43→18:56)
[2021-11-23] MEDS: Ondansetron 4 MG/2 ML Vial IV (16:43)
[2021-11-23 16:58] LABS: Absolute Lymphocyte Count 1.67 X10^3/uL (0.83-4.51); Absolute Neutrophil Count 2.5 X10^3/uL (2.0-7.7); Basophil# 0.06 X10^3/uL; Basophil% 1.3 % (0-1); Eosinophil# 0.04 X10^3/uL; Eosinophils% 0.8 % (0-5); Hematocrit 41.7 % (37-47); Lymphocyte # 1.67 X10^3/ul (0.83-4.51); Lymphocyte % 35.2 % (19-41); Mean Corp Hgb Conc 33.6 g/dL (32-36); Mean Corpuscular Hgb 30.7 pg (27.0-32.0); Mean Corpuscular Volume 91.4 fL (81-99); Mean Platelet Vol. 10.4 fl (6.2-12.0); Monocyte# 0.49 X10^3/uL; Monocyte% 10.3 % (0-10); NRBC Flagged by Analyzer 0 % (0-5); Neutrophil # 2.46 X10^3/uL (2.7-7.7); POSITIVE COUNT YES; POSITIVE MORPHOLOGY YES; Platelet Count 96 K/mm3 (150-450); RBC Distribution Width CV 15.9 % (11.6-14.6); RBC Distribution Width SD 50.9 fl (35.1-43.9); Red Blood Count 4.56 M/mm3 (4.2-5.4); White Blood Count 4.7 K/mm3 (4.4-11.0)
[2021-11-23 17:00] LABS: Differential Indicated SCAN CRITERIA MET
--- NOTE | 2021-11-23 17:00 | RAD_ITS ---
STUDY: X-RAY CHEST REASON FOR EXAM: Female, 76 years old. fevers TECHNIQUE: 1 view COMPARISON: 06/17/2021 FINDINGS: Right-sided implanted port is in stable position. Cardiomediastinal silhouette is unremarkable. Costophrenic angles are sharp. Lungs are hyperinflated but clear. The trachea is midline. There is no pneumothorax. Multiple surgical clips are seen in the right lower chest and upper abdomen. There is multilevel thoracic spondylosis. The bones are somewhat osteopenic. RAD/Chest 1 View (Portable) IMPRESSION: No acute cardiopulmonary process. Electronically Signed: Zay Marte MD at 17:27 EDT ,
[2021-11-23 17:31] LABS: ALB/GLOB Ratio 0.6 RATIO (0.9-2.4); AST(SGOT) 17 U/L (15-37); Alanine Aminotransfer ALT/SGPT 14 U/L (13-56); Albumin, Serum 2.4 g/dL (3.2-5.0); Alkaline Phosphatase 124 U/L (45-117); Anion Gap 11 (5-15); BUN 24 mg/dL (7-18); BUN/Creat Ratio 19.7 RATIO (10-20); Calcium,Total 8.2 mg/dL (8.5-10.1); Chloride 107 mmol/L (98-107); Creatinine, Serum 1.22 mg/dL (0.55-1.02); EST Glomerular Filtration Rate 46 mL/min (>60); Est Glom Filt Rate - Afr Amer 55 mL/min (>60); Estimated Creatinine Clearance 31.51 ml/min; Globulin 4.1 g/dL (2.2-4.2); Glucose 132 mg/dL (74-106); Potassium 3.6 mmol/L (3.5-5.1); Protein, Total 6.5 g/dL (6.4-8.2); Sodium Level 139 mmol/L (136-145)
[2021-11-23 17:41] LABS: Lactic Acid 0.9 mmol/L (0.4-1.9)
[2021-11-23 17:45] LABS: Differential Comment SCANNED
[2021-11-23 18:46] LABS: Mucous, Urine 0 SEEN /hpf (<or=2+)
[2021-11-23 18:51] LABS: Color, Urine Yellow (Yellow); Glucose, Dipstick Normal (Normal); Leukocyte Esterase-Dipstick 500 /ul (Negative); Nitrite-Dipstick Negative (Negative); Occult Blood-Urine 25 /ul (Negative); Protein-Dipstick 100 mg/dl (Negative); Urine Bilirubin Dipstick Negative (Negative); Urine Clarity Cloudy (Clear); Urine Urobilinogen Normal (Normal)
[2021-11-23 19:00] LABS: White Blood Cells >100 SEEN /hpf (0-5)
[2021-11-23 19:01] LABS: Bacteria 4+ /hpf (None Seen); Squamous Epithelial Cells - UA 10-25 SEEN /hpf (5-10)
[2021-11-23 19:02] LABS: Red Blood Cells-Urine 5-10 SEEN /hpf (0-5)
[2021-11-23 19:55] LABS: Ketone-Dipstick 150 mg/dl (Negative)
[2021-11-23] MEDS: Ceftriaxone 1 GM/50 ML BAG IV (20:22)
== END 2021-11-23 21:03 | disposition home or self-care (01) ==
PROVIDERS: Emergency Provider Emergency Medicine; Visit Provider Emergency Medicine
DX: N39.0 Urinary tract infection, site not specified (principal); D46.9 Myelodysplastic syndrome, unspecified; C22.1 Intrahepatic bile duct carcinoma; D84.9 Immunodeficiency, unspecified; J44.9 Chronic obstructive pulmonary disease, unspecified; R11.2 Nausea with vomiting, unspecified; R00.0 Tachycardia, unspecified; E86.0 Dehydration; R19.7 Diarrhea, unspecified; I12.9 Hypertensive chronic kidney disease with stage 1 through stage 4 chronic kidney disease, or unspecified chronic kidney disease; N18.9 Chronic kidney disease, unspecified; Z86.711 Personal history of pulmonary embolism; Z85.118 Personal history of other malignant neoplasm of bronchus and lung; Z85.830 Personal history of malignant neoplasm of bone; Z79.899 Other long term (current) drug therapy; F41.9 Anxiety disorder, unspecified; F32.A Depression, unspecified; Z86.2 Personal history of diseases of the blood and blood-forming organs and certain disorders involving the immune mechanism; Z87.891 Personal history of nicotine dependence
CPT/HCPCS: 71045; 80053; 81001; 83605; 85025; 87040; 87077; 87086; 87088; 87186; 93005; 96361; 96365; 96375; 99283; J7030; A4216; J2405

== ENCOUNTER 2021-11-25 13:20 | Inpatient (IN) | payer MEDICARE, SELFPAY ==
[2021-11-25] VITALS (7 sets, daily range): BP systolic 112–148; BP diastolic 56–92; PULSE 107–149; RESP 15–18; TEMP 36.4–37; O2SAT 94–99; BMI 23.3; BMI 22.8
--- NOTE | 2021-11-25 14:04 | EKG12_ITS ---
Test Reason : NAUSEA VOMITING Blood Pressure : / mmHG Vent. Rate : 131 BPM Atrial Rate : 131 BPM P-R Int : 156 ms QRS Dur : 078 ms QT Int : 282 ms P-R-T Axes : 065 -38 117 degrees QTc Int : 416 ms Sinus tachycardia Left axis deviation Inferior infarct , age undetermined Anteroseptal infarct , age undetermined Nonspecific ST and T wave abnormality Abnormal ECG Confirmed by MARY ANN CAMACHO, YOHANNES ([id number]), book or script editor YADIRA LEON ([id number]) on 11/27/2021 9:11:13 AM Referred By: BREEZY Confirmed By:YOHANNES REESE MD
[2021-11-25] MEDS: 0.9% Normal Saline 1,000 ML 999 ML IV ×2 (14:16→15:13)
[2021-11-25 14:20] LABS: Absolute Lymphocyte Count 0.89 X10^3/uL (0.83-4.51); Absolute Neutrophil Count 0.9 X10^3/uL (2.0-7.7); Basophil# 0.02 X10^3/uL; Basophil% 0.8 % (0-1); Eosinophil# 0.01 X10^3/uL; Eosinophils% 0.4 % (0-5); Hematocrit 37.7 % (37-47); Hemoglobin 12.6 g/dL (12.0-15.0); Lymphocyte # 0.89 X10^3/ul (0.83-4.51); Lymphocyte % 33.7 % (19-41); Mean Corp Hgb Conc 33.4 g/dL (32-36); Mean Corpuscular Hgb 30.5 pg (27.0-32.0); Mean Corpuscular Volume 91.3 fL (81-99); Mean Platelet Vol. 11.1 fl (6.2-12.0); Monocyte% 30.3 % (0-10); NRBC Flagged by Analyzer 0 % (0-5); Neutrophil # 0.91 X10^3/uL (2.7-7.7); Neutrophil % 34.4 % (47-70); POSITIVE COUNT YES; POSITIVE DIFFERENTIAL YES; POSITIVE MORPHOLOGY YES; Platelet Count 76 K/mm3 (150-450); RBC Distribution Width CV 16.6 % (11.6-14.6); Red Blood Count 4.13 M/mm3 (4.2-5.4); White Blood Count 2.6 K/mm3 (4.4-11.0)
--- NOTE | 2021-11-25 14:24 | RAD_ITS ---
STUDY: X-RAY CHEST REASON FOR EXAM: Female, 76 years old. Weakness TECHNIQUE: Single AP portable view of the chest. COMPARISON: Comparison is made with prior study dated 07/26/2021. FINDINGS: A right-sided mariah catheter seen with the tip at the junction of the superior vena cava and right atrium. EKG electrodes are seen. Hyperinflation. Surgical clips are seen overlying the inferior medial aspect of the right lung base. There is no demonstrated pleural abnormality. Normal size heart. Normal mediastinum and latoya. Normal visualized pulmonary arteries. There is atherosclerotic tortuosity of the aortic arch and descending thoracic aorta. There are diffuse degenerative changes of the visualized thoracic spine. Normal visualized ribs, clavicles, and shoulders. There is no demonstrated abnormality of the visualized soft tissue structures of the upper abdomen. RAD/Chest 1 View (Portable) IMPRESSION: Hyperinflation. Stable examination. No acute abnormality is seen. Electronically Signed: Bernard Doyle MD at 14:38 EDT ,
--- NOTE | 2021-11-25 14:24 | EDS_ITS ---
HPI HPI - GI History of Present Illness Chief Complaint: Nausea/Vomiting/Diarrhea Narrative Narrative: 76-year-old female with history of metastatic intrahepatic cholangiocarcinoma, myelodysplastic syndrome presenting with nausea and vomiting for the last couple of days. She was seen in the ER a couple of days ago and diagnosed with UTI. She is got home and not been able to hold down any food or fluids over the last couple of days. She is not been able to hold down her antibiotics either. Apparently since she follows with Dr. Harden he ordered a CAT scan of the abdomen pelvis yesterday which showed some inflammation. He scheduled an MRI of the spine today however since the patient was actively vomiting she and her daughter decided to come to the emergency room. Patient states that she was able to hold down some Zofran prior to coming and is currently not nauseous. She complains of some right-sided abdominal pain. She has not had a fever. She does have diarrhea, and apparently there is some concern for C. difficile colitis and this was ordered as an outpatient however this has not currently been collected. The patient does live in assisted living. She has been getting treatments for chemotherapy last one was last week. She has had 4 total. [facility] Medical History (Updated 11/25/21 @ 16:52 by Serena Contreras) Abnormal EKG Anemia Anxiety Bone cancer CKD (chronic kidney disease) COPD (chronic obstructive pulmonary disease) Depression Essential hypertension Former smoker Hypertension Hypertension Liver cancer Lung cancer MDS (myelodysplastic syndrome) Metastasis Migraines Osteoporosis Pulmonary embolism Tachycardia Home Medications acidophilus 25 million cell-pectin, citrus 100 mg tablet 1 tab PO BID #60 TABLETS 12/22/15 [Rx Last Taken 11/25/21] pantoprazole 40 mg tablet,delayed release 40 mg PO DAILY #30 TABLETS 12/22/15 [Rx Last Taken 11/25/21] aripiprazole 5 mg tablet 5 mg PO DAILY mood 06/27/19 [History Last Taken 11/25/21] metoprolol tartrate 25 mg tablet 25 mg PO DAILY bp 06/27/19 [History Last Taken 11/25/21] colestipol 1 gram tablet (Colestid) 2 g PO BID 10/15/21 [History Last Taken 11/25/21] duloxetine 60 mg capsule,delayed release 120 mg PO DAILY depression 10/15/21 [History Last Taken 11/25/21] lorazepam 0.5 mg tablet (Ativan) 0.5 mg PO TID PRN Anxiety 10/15/21 [History Last Taken Unknown] multivitamin 1 tab PO DAILY 10/15/21 [History Last Taken 11/25/21] cephalexin 500 mg capsule 500 mg PO Q6 #28 CAPSULES 11/23/21 [Rx Last Taken 11/25/21] oxybutynin chloride 10 mg tablet,extended release 24 hr 10 mg PO DAILY BLADDER 11/23/21 [History Last Taken 11/25/21] promethazine 25 mg tablet 25 mg PO Q6H PRN Nausea 11/23/21 [History Last Taken Unknown] tramadol 50 mg tablet 50 mg PO TID PRN Pain 11/23/21 [History Last Taken Unknown] Antacid Chew 2 tab PO/SL BID 11/25/21 [History Last Taken 11/25/21] acetaminophen 500 mg tablet 1,000 mg PO TID 11/25/21 [History Last Taken 11/25/21] calcium citrate 315 mg calcium-vitamin D3 6.25 mcg (250 unit) tablet 2 tab PO DAILY 11/25/21 [History Last Taken 11/25/21] loperamide 2 mg capsule 4 mg PO Q6H PRN Diarrhea 11/25/21 [History Last Taken 11/25/21] magnesium oxide 400 mg PO BID SUPPLEMENT 11/25/21 [History Last Taken 11/25/21] melatonin 5 mg tablet 5 mg PO QHS SLEEP 11/25/21 [History Last Taken 11/24/21] mesalamine 0.375 gram capsule,extended release 24 hr 0.375 g PO BID 11/25/21 [History Last Taken 11/25/21] ondansetron HCl 4 mg tablet 4 mg PO Q6H 11/25/21 [History Last Taken 11/25/21] Allergy/AdvReac Type Severity Reaction Status Date / Time erythromycin base Allergy Other Verified 11/25/21 13:22 levofloxacin [From Levaquin] Allergy Other Verified 11/25/21 13:22 Penicillins Allergy Other Verified 11/25/21 13:22 prednisone Allergy Other Verified 11/25/21 13:22 Sulfa (Sulfonamide Allergy Other Verified 11/25/21 13:22 Antibiotics) Family History Other COPD (chronic obstructive pulmonary disease) Cancer Surgical History (Updated 11/25/21 @ 16:52 by Serena Contreras) H/O: hysterectomy History of appendectomy History of bowel resection History of resection of liver Hx of cholecystectomy Social History Smoking Status: Former smoker alcohol intake: never substance use type: does not use caffeine: Yes ROS ROS ED Constitutional Constitutional ED: Denies chills or fever(s) ENT ENT ED: Denies rhinorrhea or sore throat Cardiovascular Cardiovascular: Reports racing heartbeat; Denies chest pain Respiratory/Chest Respiratory/Chest: Denies cough or dyspnea Gastrointestinal Gastrointestinal: Reports abdominal pain, diarrhea, nausea and vomiting; Denies melena Genitourinary Genitourinary ED: Reports other Details: Decreased urine output ; Denies dysuria or hematuria Musculoskeletal Musculoskeletal: Denies arthralgias Neurologic Neurologic: Denies headache(s) or paresthesias Psychiatric Psychiatric: Denies anxiety or depression EXAM Physical Exam Const Vital Signs: 11/25/21 13:22 11/25/21 14:16 11/25/21 14:16 Temperature 97.5 F L 98.5 F Temperature Source Temporal Oral Pulse Rate 149 H Respiratory Rate 18 Blood Pressure 112/70 Blood Pressure Mean 84 Pulse Ox 99 Oxygen Delivery Method Room Air Room Air 11/25/21 15:16 11/25/21 16:52 Temperature 98.5 F 98.3 F Temperature Source Oral Temporal Pulse Rate 110 H 114 H Respiratory Rate 15 16 Blood Pressure 126/56 H 119/92 H Blood Pressure Mean 79 101 Pulse Ox 99 99 Oxygen Delivery Method Room Air Room Air Positive well nourished General Appearance ED: NAD; Negative for pallor HEENT Reports dry mucous membranes normocephalic and atraumatic Mouth ED: Yes dry mucous membranes Mouth: dry mucous membranes Eyes PERRL and EOMs intact bilaterally General Eye ED: Negative for pale conjunctiva or scleral icterus Resp normal respiratory effort Effort and Inspection: Negative for respiratory distress or retractions Auscultation: Negative for rales, rhonchi or wheezes Cardio regular rhythm Rate: tachycardic GI Palpation: tender RLQ and RUQ Back/Spine no CVA tenderness Neuro CN's II-XII intact bilaterally, moves all extremities and no sensory deficits noted Sensorium / Orientation: alert, oriented to person, oriented to place and oriented to time Psych mental status grossly normal Skin General Skin Exam: Negative for jaundice or pallor MDM MDM MDM Narrative Medical decision making narrative: Patient presenting with 2 days of nausea and vomiting since diagnosis with UTI. She is given 2 L of IV fluids and currently is not nauseous. I obtained an EKG because she is tachycardic and on my interpretation this is a sinus tachycardia with a ventricular rate of 131 bpm without ischemic change. Patient previously diagnosed with UTI and has not held on any antibiotics. I will give her a dose of Rocephin. Chest ray returned on my interpretation is no acute cardiopulmonary process and the radiologist agree. CBC shows a white blood cell count of 2.6, hemoglobin 12.6, platelets 76. PT/INR normal. Creatinine 1.25. Potassium slightly low at 3.1. Lactic acid within normal limits. Urinalysis again look significant for UTI. Urine culture tested the other day was positive for Klebsiella. Patient was given a dose of Rocephin already. Patient does not feel she can go home as she is not able to hold her antibiotics down. At this point I spoke with the hospitalist for admission for intractable nausea and vomiting as well as UTI. Impression: 1. Intractable nausea vomiting sign #2 UTI 3. Leukopenia 4. Thrombocytopenia 5. Hypokalemia Lab Data Labs: Laboratory Results - last 24 hr 11/25/21 11/25/21 11/25/21 13:40 13:40 13:40 WBC 2.6 L RBC 4.13 L Hgb 12.6 Hct 37.7 MCV 91.3 MCH 30.5 MCHC 33.4 RDW Std Deviation 53.0 H RDW Coeff of Edson 16.6 H Plt Count 76 L MPV 11.1 Immature Gran % (Auto) 0.400 Neut % (Auto) 34.4 L Lymph % (Auto) 33.7 [place] % (Auto) 30.3 H Eos % (Auto) 0.4 Baso % (Auto) 0.8 Absolute Neuts (auto) 0.9 L Absolute Lymphs (auto) 0.89 Nucleated RBC % 0 Differential Comment Platelet Estimate MOD DEC RBC Morphology NORM C+C PT 13.9 INR 1.1 APTT 28.1 Sodium 142 Potassium 3.1 L Chloride 112 H Carbon Dioxide 18.0 L Anion Gap 12 BUN 19 H Creatinine 1.25 H Estim Creat Clear Calc 30.76 Est GFR (MDRD) Af Amer 54 L Est GFR (MDRD) Non-Af 44 L BUN/Creatinine Ratio 15.2 Glucose 156 H Lactic Acid Calcium 8.3 L Total Bilirubin 0.30 AST 12 L ALT 11 L Alkaline Phosphatase 98 Troponin I High Sens 11 Total Protein 6.3 L Albumin 2.1 L Globulin 4.2 Albumin/Globulin Ratio 0.5 L Urine Color Urine Clarity Urine pH Ur Specific [place] Urine Protein Urine Glucose (UA) Urine Ketones Urine Occult Blood Urine Nitrite Urine Bilirubin Urine Urobilinogen Ur Leukocyte Esterase Urine RBC Urine WBC Ur Squamous Epith Cells Urine Bacteria Coarse Granular Casts Urine Mucus 11/25/21 11/25/21 13:40 14:50 WBC RBC Hgb Hct MCV MCH MCHC RDW Std Deviation RDW Coeff of Edson Plt Count MPV Immature Gran % (Auto) Neut % (Auto) Lymph % (Auto) [place] % (Auto) Eos % (Auto) Baso % (Auto) Absolute Neuts (auto) Absolute Lymphs (auto) Nucleated RBC % Differential Comment Platelet Estimate RBC Morphology PT INR APTT Sodium Potassium Chloride Carbon Dioxide Anion Gap BUN Creatinine Estim Creat Clear Calc Est GFR (MDRD) Af Amer Est GFR (MDRD) Non-Af BUN/Creatinine Ratio Glucose Lactic Acid 1.4 Calcium Total Bilirubin AST ALT Alkaline Phosphatase Troponin I High Sens Total Protein Albumin Globulin Albumin/Globulin Ratio Urine Color Yellow Urine Clarity Sl. Cloudy Urine pH 6.0 Ur Specific [place] 1.015 Urine Protein 100 H Urine Glucose (UA) Normal Urine Ketones 50 H Urine Occult Blood 10 H Urine Nitrite Negative Urine Bilirubin Negative Urine Urobilinogen Normal Ur Leukocyte Esterase 100 H Urine RBC 5-10 SEEN Urine WBC 25-50 SEEN Ur Squamous Epith Cells 5-10 SEEN Urine Bacteria 4+ Coarse Granular Casts 10-25 SEEN Urine Mucus 0 SEEN Radiography Diagnostic Testing: Clinical Impression(s) from Imaging Studies Chest X-Ray 11/25/21 14:24 IMPRESSION: Hyperinflation. Stable examination. No acute abnormality is seen. Electronically Signed: Bernard Doyle MD at 14:38 EDT , Discharge Plan Disposition Disposition: Acute Care [facility] Discharge Date/Time: 11/25/21 18:02
[2021-11-25 14:26] LABS: International Normalized Ratio 1.1; Prothrombin Time (Protime)PT. 13.9 SECONDS (11.7-14.9)
[2021-11-25 14:27] LABS: Partial Thromboplast Time 28.1 Seconds (24.1-36.2)
[2021-11-25 14:37] LABS: ALB/GLOB Ratio 0.5 RATIO (0.9-2.4); AST(SGOT) 12 U/L (15-37); Alanine Aminotransfer ALT/SGPT 11 U/L (13-56); Albumin, Serum 2.1 g/dL (3.2-5.0); Alkaline Phosphatase 98 U/L (45-117); Anion Gap 12 (5-15); BUN 19 mg/dL (7-18); BUN/Creat Ratio 15.2 RATIO (10-20); Calcium,Total 8.3 mg/dL (8.5-10.1); Chloride 112 mmol/L (98-107); Creatinine, Serum 1.25 mg/dL (0.55-1.02); EST Glomerular Filtration Rate 44 mL/min (>60); Est Glom Filt Rate - Afr Amer 54 mL/min (>60); Estimated Creatinine Clearance 30.76 ml/min; Globulin 4.2 g/dL (2.2-4.2); Glucose 156 mg/dL (74-106); Potassium 3.1 mmol/L (3.5-5.1); Protein, Total 6.3 g/dL (6.4-8.2); Sodium Level 142 mmol/L (136-145); Troponin-I HS 11 pg/mL (3.0-54.0)
[2021-11-25 14:58] LABS: Mucous, Urine 0 SEEN /hpf (<or=2+)
[2021-11-25 15:04] LABS: Differential Indicated SCAN CRITERIA MET
[2021-11-25 15:06] LABS: Platelet Estimate MOD DEC (ADEQ); Red Cell Morphology NORM C+C NORMAL (NORM C&C)
[2021-11-25 15:12] LABS: Lactic Acid 1.4 mmol/L (0.4-1.9)
[2021-11-25] MEDS: Ceftriaxone 1 GM/50 ML BAG IV (15:13)
[2021-11-25 15:19] LABS: Color, Urine Yellow (Yellow); Glucose, Dipstick Normal (Normal); Ketone-Dipstick 50 mg/dl (Negative); Leukocyte Esterase-Dipstick 100 /ul (Negative); Nitrite-Dipstick Negative (Negative); Occult Blood-Urine 10 /ul (Negative); Protein-Dipstick 100 mg/dl (Negative); Specific Gravity, Urine 1.015 (1.002-1.030); Urine Bilirubin Dipstick Negative (Negative); Urine Clarity Sl. Cloudy (Clear); Urine Urobilinogen Normal (Normal)
[2021-11-25 15:45] LABS: Bacteria 4+ /hpf (None Seen); Red Blood Cells-Urine 5-10 SEEN /hpf (0-5); Squamous Epithelial Cells - UA 5-10 SEEN /hpf (5-10); White Blood Cells 25-50 SEEN /hpf (0-5)
[2021-11-25 15:47] LABS: Coarse Granular Cast 10-25 SEEN /lpf (0-5 /lpf)
--- NOTE | 2021-11-25 17:07 | NURSING ---
MED SURG TERELETSKY UTI,NAUSEA, VOMITING
[2021-11-25] MEDS: KCL 20MEQ in 0.9% NS 20 MEQ/1,000 ML IV.SOLN. 100 MEQ IV (19:38)
--- NOTE | 2021-11-25 19:46 | PCM.HP.STD ---
HPI - General General Date of Admission: 11/25/21 Date of Service: 11/25/21 Chief Complaint: Nausea and vomiting HPI Narrative Stephen NYE, is a 76 F who presents to the emergency room at [facility] with a chief complaint of nausea and vomiting with intermittent diarrhea x1 week. Patient was seen in the emergency room 2 days ago here and diagnosed with a urinary tract infection, patient states she cannot take oral medications however due to persistent nausea and vomiting has not been able to take her antibiotic for 2 days. Patient has a history of cholangiocarcinoma with metastatic disease to the liver, she recently had an abdominal CAT scan which showed some abnormality in the terminal ileum according to her oncologist who I talked to by phone today (Dr. Harden). Patient however does have a history of Crohn's disease and is taking medications for Crohn's. Work-up in the emergency room today which was remarkable for blood cell count of 2.6, patient's creatinine was elevated at 1.25 and BUN was 19, potassium was 3.1. Patient did not have vomiting in the emergency room today, a CT difficile toxin was performed on the patient's stool which is pending at the time of this dictation. Patient's urinalysis was remarkable for a WBC of 25-50, 4+ bacteria was seen, 5-10 RBCs were seen. Patient's urine leukocyte Estrace was elevated at 100. Patient will be placed in observation status for hypokalemia and cystitis with nausea and vomiting, IV fluids will be administered, she was given IV Rocephin, patient's BMP will be monitored. [facility] Medical History (Updated 11/25/21 @ 16:52 by Serena Contreras) Abnormal EKG Anemia Anxiety Bone cancer CKD (chronic kidney disease) COPD (chronic obstructive pulmonary disease) Depression Essential hypertension Former smoker Hypertension Hypertension Liver cancer Lung cancer MDS (myelodysplastic syndrome) Metastasis Migraines Osteoporosis Pulmonary embolism Tachycardia Home Medications acidophilus 25 million cell-pectin, citrus 100 mg tablet 1 tab PO BID #60 TABLETS 12/22/15 [Rx Last Taken 11/25/21] pantoprazole 40 mg tablet,delayed release 40 mg PO DAILY #30 TABLETS 12/22/15 [Rx Last Taken 11/25/21] aripiprazole 5 mg tablet 5 mg PO DAILY mood 06/27/19 [History Last Taken 11/25/21] metoprolol tartrate 25 mg tablet 25 mg PO DAILY bp 06/27/19 [History Last Taken 11/25/21] colestipol 1 gram tablet (Colestid) 2 g PO BID 10/15/21 [History Last Taken 11/25/21] duloxetine 60 mg capsule,delayed release 120 mg PO DAILY depression 10/15/21 [History Last Taken 11/25/21] lorazepam 0.5 mg tablet (Ativan) 0.5 mg PO TID PRN Anxiety 10/15/21 [History Last Taken Unknown] multivitamin 1 tab PO DAILY 10/15/21 [History Last Taken 11/25/21] cephalexin 500 mg capsule 500 mg PO Q6 #28 CAPSULES 11/23/21 [Rx Last Taken 11/25/21] oxybutynin chloride 10 mg tablet,extended release 24 hr 10 mg PO DAILY BLADDER 11/23/21 [History Last Taken 11/25/21] promethazine 25 mg tablet 25 mg PO Q6H PRN Nausea 11/23/21 [History Last Taken Unknown] tramadol 50 mg tablet 50 mg PO TID PRN Pain 11/23/21 [History Last Taken Unknown] Antacid Chew 2 tab PO/SL BID 11/25/21 [History Last Taken 11/25/21] acetaminophen 500 mg tablet 1,000 mg PO TID 11/25/21 [History Last Taken 11/25/21] calcium citrate 315 mg calcium-vitamin D3 6.25 mcg (250 unit) tablet 2 tab PO DAILY 11/25/21 [History Last Taken 11/25/21] loperamide 2 mg capsule 4 mg PO Q6H PRN Diarrhea 11/25/21 [History Last Taken 11/25/21] magnesium oxide 400 mg PO BID SUPPLEMENT 11/25/21 [History Last Taken 11/25/21] melatonin 5 mg tablet 5 mg PO QHS SLEEP 11/25/21 [History Last Taken 11/24/21] mesalamine 0.375 gram capsule,extended release 24 hr 0.375 g PO BID 11/25/21 [History Last Taken 11/25/21] ondansetron HCl 4 mg tablet 4 mg PO Q6H 11/25/21 [History Last Taken 11/25/21] Allergy/AdvReac Type Severity Reaction Status Date / Time erythromycin base Allergy Other Verified 11/25/21 13:22 levofloxacin [From Levaquin] Allergy Other Verified 11/25/21 13:22 Penicillins Allergy Other Verified 11/25/21 13:22 prednisone Allergy Other Verified 11/25/21 13:22 Sulfa (Sulfonamide Allergy Other Verified 11/25/21 13:22 Antibiotics) Family History Other COPD (chronic obstructive pulmonary disease) Cancer Surgical History (Updated 11/25/21 @ 16:52 by Serena Contreras) H/O: hysterectomy History of appendectomy History of bowel resection History of resection of liver Hx of cholecystectomy Social History Smoking Status: Former smoker alcohol intake: never substance use type: does not use caffeine: Yes ROS Constitutional Constitutional: Denies anorexia, change in weight, fever(s), night sweats or weakness Eyes Eyes: Denies blurry vision, change in vision, discharge from eye(s) or eye pain Cardiovascular Cardiovascular: Denies chest pain, claudication, edema or palpitations Respiratory/Chest Respiratory/Chest: Denies cough, hemoptysis, shortness of breath at rest or shortness of breath with exertion Gastrointestinal Gastrointestinal: Reports diarrhea, nausea and vomiting; Denies abdominal pain, constipation, hematemesis, hematochezia or melena Genitourinary Genitourinary: Denies difficulty urinating, dysuria, hematuria, nocturia, urinary frequency, urinary hesitancy, urinary incontinence or urinary urgency Musculoskeletal Musculoskeletal: Denies back pain, joint pain, joint stiffness, joint swelling, myalgias or neck pain Neurologic Neurologic: Denies abnormal gait, abnormal speech, dizziness, focal weakness, headache(s), loss of vision, numbness, other visual disturbances, paresthesias, syncope or tingling Psychiatric Psychiatric: Denies anxiety, cognitive impairment, depression, irritability, mood swings or suicidal ideation Endocrine Endocrinology: Denies change in body appearance, cold intolerance, excessive sweating, heat intolerance, polydipsia or polyuria Hematologic/Lymphatic Hematologic/Lymphatic: Denies none, anemia, easy bleeding, easy bruising or lymphadenopathy Allergic/Immunologic Allergic/Immunologic: Denies rhinitis, urticaria, eczemia or asthma Vital Signs Vital Signs Vital Signs: 11/25/21 13:22 11/25/21 14:16 11/25/21 14:16 Temperature 97.5 F L 98.5 F Temperature Source Temporal Oral Pulse Rate 149 H Respiratory Rate 18 Blood Pressure 112/70 Blood Pressure Mean 84 Blood Pressure Source Blood Pressure Position Blood Pressure Location Pulse Ox 99 Oxygen Delivery Method Room Air Room Air 11/25/21 15:16 11/25/21 16:52 11/25/21 17:00 Temperature 98.5 F 98.3 F Temperature Source Oral Temporal Pulse Rate 110 H 114 H 116 H Respiratory Rate 15 16 Blood Pressure 126/56 H 119/92 H Blood Pressure Mean 79 101 Blood Pressure Source Blood Pressure Position Blood Pressure Location Pulse Ox 99 99 Oxygen Delivery Method Room Air Room Air 11/25/21 17:00 11/25/21 17:00 11/25/21 18:30 Temperature 98.4 F 98.4 F 98 F Temperature Source Temporal Temporal Oral Pulse Rate 116 H 107 H Respiratory Rate 17 18 Blood Pressure 133/69 H 148/85 H Blood Pressure Mean 90 106 Blood Pressure Source Monitor Blood Pressure Position Semi-Fowlers Blood Pressure Location Right Arm Pulse Ox 97 98 Oxygen Delivery Method Room Air Room Air Weight Weight: 56.835 kg Body Mass Index (BMI) 22.8 Physical Exam Const alert, oriented x3, no apparent distress and healthy appearing General Appearance: cooperative, well kempt and well developed Orientation / Consciousness: awake, oriented to person, oriented to place and oriented to time HEENT normocephalic, head/scalp atraumatic, hearing grossly normal bilaterally and moist oral mucous membranes Eyes PERRL, EOMs intact bilaterally and conjunctivae normal Neck nuchal rigidity, supple, no JVD, thyroid normal and no carotid bruits General: trachea midline Resp normal respiratory effort, no retractions, no use of accessory muscles and clear to auscultation bilaterally Auscultation: Negative for rales, rhonchi or wheezes Cardio regular rate, regular rhythm, S1 normal heart sound, S2 normal heart sound, no murmurs, no rub and no gallops GI normal to inspection, nondistended, normoactive bowel sounds, soft to palpation, non-tender and non-distended Extremity no clubbing, cyanosis or edema Skin no rashes or lesions noted General Skin Exam: no breakdown Neuro oriented x3, CN's II-XII intact bilaterally, moves all extremities, no focal motor deficits and no sensory deficits noted Sensorium / Orientation: awake and alert Speech: speech normal Psych affect normal Results Lab / Micro Data Result Diagrams: 11/25/21 13:40 11/25/21 13:40 Labs: Laboratory Results - last 24 hr 11/25/21 13:40: WBC 2.6 L, RBC 4.13 L, Hgb 12.6, Hct 37.7, MCV 91.3, MCH 30.5, MCHC 33.4, RDW Std Deviation 53.0 H, RDW Coeff of Edson 16.6 H, Plt Count 76 L, MPV 11.1, Immature Gran % (Auto) 0.400, Neut % (Auto) 34.4 L, Lymph % (Auto) 33.7, [place] % (Auto) 30.3 H, Eos % (Auto) 0.4, Baso % (Auto) 0.8, Absolute Neuts (auto) 0.9 L, Absolute Lymphs (auto) 0.89, Nucleated RBC % 0, Differential Comment , Platelet Estimate MOD DEC, RBC Morphology NORM C+C 11/25/21 13:40: PT 13.9, INR 1.1, APTT 28.1 11/25/21 13:40: Sodium 142, Potassium 3.1 L, Chloride 112 H, Carbon Dioxide 18.0 L, Anion Gap 12, BUN 19 H, Creatinine 1.25 H, Estim Creat Clear Calc 30.76, Est GFR (MDRD) Af Amer 54 L, Est GFR (MDRD) Non-Af 44 L, BUN/Creatinine Ratio 15.2, Glucose 156 H, Calcium 8.3 L, Total Bilirubin 0.30, AST 12 L, ALT 11 L, Alkaline Phosphatase 98, Troponin I High Sens 11, Total Protein 6.3 L, Albumin 2.1 L, Globulin 4.2, Albumin/Globulin Ratio 0.5 L 11/25/21 13:40: Lactic Acid 1.4 11/25/21 14:50: Urine Color Yellow, Urine Clarity Sl. Cloudy, Urine pH 6.0, Ur Specific [place] 1.015, Urine Protein 100 H, Urine Glucose (UA) Normal, Urine Ketones 50 H, Urine Occult Blood 10 H, Urine Nitrite Negative, Urine Bilirubin Negative, Urine Urobilinogen Normal, Ur Leukocyte Esterase 100 H, Urine RBC 5-10 SEEN, Urine WBC 25-50 SEEN, Ur Squamous Epith Cells 5-10 SEEN, Urine Bacteria 4+, Coarse Granular Casts 10-25 SEEN, Urine Mucus 0 SEEN Micro: Microbiology 11/25/21 16:40 Stool Stool Lactoferrin - Final 11/25/21 16:40 Stool C. difficile DNA Amplification - Final Radiology Impression Chest X-Ray 11/25/21 14:24 IMPRESSION: Hyperinflation. Stable examination. No acute abnormality is seen. Electronically Signed: Bernard Doyle MD at 14:38 EDT , Assessment & Plan Assessment/Plan (1) MDS (myelodysplastic syndrome): PLAN: Plan 1. Persistent nausea and vomiting-etiology unclear at this point, patient will be placed in observation status on MedSurg 3, IV fluids will be administered, antiemetics will be given to the patient, she will be reevaluated tomorrow morning #2 cystitis-patient unable to take oral antibiotics due to persistent nausea and vomiting, IV Rocephin will be administered #3 [id number] will be given IV fluids with potassium chloride, BMP will be repeated #4 diarrhea-etiology unclear at this point, patient has a history of chronic diarrhea however, patient had a specimen of stool sent from the ER for C. difficile toxin, this is pending at this time, patient will be in isolation until her C. difficile is resulted. #5 metastatic cholangiocarcinoma to the liver-patient sees outpatient oncology #6 chronic kidney disease stage III A-patient may have mild dehydration at this time, she will be given IV fluids Charges/Coding Visit Charges OBSV E&M: 97958 Initial observation care L3
[2021-11-25] MEDS: Ondansetron 4 MG/2 ML Vial IV (21:15)
[2021-11-25] MEDS: 0.9% Saline Lock 10 ML Syringe IV (21:15)
[2021-11-25] MEDS: Menthol/Lanolin/Calamine/Znox 113 GM Tube 1 APPLIC TOPICAL (22:36)
[2021-11-25] MEDS: MESALAMINE 400 MG CAPSULE.DR PO (22:38)
[2021-11-25] MEDS: Colestipol 1 GM TABLET 2 GM PO (22:38)
[2021-11-25] MEDS: Heparin Injection (Vial) 5,000 UNIT/ML VIAL 5000 UNIT SC (23:14)
[2021-11-26] MEDS: KCL 20MEQ in 0.9% NS 20 MEQ/1,000 ML IV.SOLN. 100 MEQ IV ×2 (05:20→14:52)
[2021-11-26 05:21] VITALS: BP 149/65; PULSE 118; RESP 16; TEMP 36.9; O2SAT 99
[2021-11-26] MEDS: 0.9% Saline Lock 10 ML Syringe IV (06:04)
[2021-11-26 07:28] LABS: Anion Gap 9 (5-15); BUN 14 mg/dL (7-18); Calcium,Total 6.9 mg/dL (8.5-10.1); Chloride 121 mmol/L (98-107); Creatinine, Serum 0.94 mg/dL (0.55-1.02); EST Glomerular Filtration Rate 62 mL/min (>60); Est Glom Filt Rate - Afr Amer 75 mL/min (>60); Glucose 86 mg/dL (74-106); Potassium 2.7 mmol/L (3.5-5.1); Sodium Level 145 mmol/L (136-145)
[2021-11-26] MEDS: Potassium Chloride 10mEq/100mL 10 MEQ/100 ML IV.SOLN. 90 MEQ IV BOLUS (08:32)
[2021-11-26] MEDS: Loperamide 2 MG Capsule PO (08:43)
[2021-11-26] MEDS: DULoxetine Hcl 60 MG Capsule 120 MG PO (08:43)
[2021-11-26] MEDS: Ondansetron 4 MG/2 ML Vial IV (08:43)
[2021-11-26] MEDS: Pantoprazole Sodium 40 MG Tablet PO (08:44)
[2021-11-26] MEDS: Colestipol 1 GM TABLET 2 GM PO ×2 (08:44→21:08)
[2021-11-26] MEDS: Heparin Injection (Vial) 5,000 UNIT/ML VIAL 5000 UNIT SC ×2 (08:45→21:07)
[2021-11-26] MEDS: Potassium Chloride Oral Tablet 20 MEQ PO ×2 (08:45→20:00)
[2021-11-26] MEDS: Potassium Chloride 10mEq/100mL 10 MEQ/100 ML IV.SOLN. 100 MEQ IV BOLUS ×5 (09:40→23:14)
[2021-11-26 09:41] VITALS: PULSE 118
[2021-11-26] MEDS: Metoprolol Tartrate 25 MG Tablet PO (09:41)
[2021-11-26] MEDS: Ceftriaxone 1 GM/50 ML BAG IV (10:42)
[2021-11-26 11:20] VITALS: BP 113/65; PULSE 101; RESP 14; TEMP 36.8; O2SAT 99
[2021-11-26] MEDS: MESALAMINE 400 MG CAPSULE.DR PO ×2 (11:50→21:08)
[2021-11-26] MEDS: ARIPiprazole 5 MG Tablet PO (11:50)
[2021-11-26] MEDS: Menthol/Lanolin/Calamine/Znox 113 GM Tube 1 APPLIC TOPICAL ×2 (11:51→21:05)
--- NOTE | 2021-11-26 12:39 | CASEMGMT ---
Addendum entered by Nguyen Monsivais 11/26/21 14:30: Social Work SW placed call to the [facility]. Neli confirmed pt is in the assisted living memory unit and can return when medically ready. Fax number is [phone] and phone [phone]. Plan: Return to [facility] ANAID Velásquez Original Note: Social Work SW met with pt and pt sister at bedside and introduced self and role of SW. Pt is alert and oriented x3 and agreeable to answer SW questions for assessment. PCP: Tristan Specialists:Pa Carrillo - gastroenterology, Dr. Harden - oncology Insurance: [employer] Prescription Benefit: Yes Living Will/HPOA: Pt states she has a living will and health care POA naming her daughter Stephani Camarillo. Pt is aware documents are not on file at [facility]. LNOK: Stephani Camarillo, daughter Living Arrangements: Pt lives in an assisted living memory care unit at [facility] with her who has dementia. DME: Pt has a cane and a walker HHC/SNF: Pt currently lives at the [facility]. Pt states that she plans to return to [facility] at time of discharge. Phone call placed to the [facility] ([place] and left for admissions to return call. ANAID Velásquez
[2021-11-26 15:12] VITALS: BP 112/62; PULSE 90; RESP 16; TEMP 36.7; O2SAT 99
[2021-11-26 17:18] LABS: Anion Gap 7 (5-15); BUN 11 mg/dL (7-18); BUN/Creat Ratio 9.9 RATIO (10-20); Calcium,Total 7.1 mg/dL (8.5-10.1); Chloride 120 mmol/L (98-107); Creatinine, Serum 1.11 mg/dL (0.55-1.02); EST Glomerular Filtration Rate 51 mL/min (>60); Est Glom Filt Rate - Afr Amer 62 mL/min (>60); Estimated Creatinine Clearance 34.63 ml/min; Glucose 86 mg/dL (74-106); Potassium 3.3 mmol/L (3.5-5.1); Sodium Level 142 mmol/L (136-145)
--- NOTE | 2021-11-26 19:11 | PCM.PN.HOSP ---
Subjective Subjective Patient was seen and examined today, I repeated her BMP this afternoon and her potassium is 3.3 now, I will administer 2 more IV potassium infusions. 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 Objective Data Objective Data Vital Signs: Vital Signs Temp Pulse Resp BP Pulse Ox 98.1 F 90 16 112/62 99 11/26/21 15:12 11/26/21 15:12 11/26/21 15:12 11/26/21 15:12 11/26/21 15:12 Oxygen Delivery Method Room Air Weight: 56.835 kg Body Mass Index (BMI) 22.8 Intake & Output: Intake and Output for Last 24 Hours 11/24/21 11/25/21 11/26/21 23:59 23:59 23:59 Intake Total 2170 / 2170 2426.67 / 2426.67 Balance 2170 / 2170 2426.67 / 2426.67 Medical Nutrition Assessment Dietitian: Malnutrition Criteria Met Start: 11/26/21 12:02 Freq: Status: Active Protocol: Document 11/26/21 12:04 TERESO (Rec: 11/26/21 12:04 [id number]) Nutrition Malnutrition Evidence of Malnutrition Exists Yes Malnutrition (severe): Acute Illness/Injury Evidenced By Suboptimal Energy Intake ( Severe),Weight Loss (Severe) Clinical Problem Acute Disease or Injury Related Malnutrition Etiology (severe) related to nausea/ vomiting/diarrhea for 1 week Signs/Symptoms as evidenced by <50% intake of estimated energy needs for 1 week and 8.7% weight loss in 1 .5 weeks. Status Active Problem Recommendation Dietitian Recommendations/Changes Continue Regular diet Ensure Enlive (chocolate) TID with meals. Lab / Micro Data Result Diagrams: 11/25/21 13:40 11/26/21 16:39 Labs: Laboratory Results - last 24 hr 11/26/21 06:05: Sodium 145, Potassium 2.7 L*, Chloride 121 H, Carbon Dioxide 15.0 L, Anion Gap 9, BUN 14, Creatinine 0.94, Estim Creat Clear Calc 40.90, Est GFR (MDRD) Af Amer 75, Est GFR (MDRD) Non-Af 62, BUN/Creatinine Ratio 15.0, Glucose 86, Calcium 6.9 L 11/26/21 16:39: Sodium 142, Potassium 3.3 L, Chloride 120 H, Carbon Dioxide 15.0 L, Anion Gap 7, BUN 11, Creatinine 1.11 H, Estim Creat Clear Calc 34.63, Est GFR (MDRD) Af Amer 62, Est GFR (MDRD) Non-Af 51 L, BUN/Creatinine Ratio 9.9 L, Glucose 86, Calcium 7.1 L Micro: Microbiology 11/25/21 16:40 Stool Stool Lactoferrin - Final 11/25/21 16:40 Stool Enteric Bacteriology - Final 11/25/21 16:40 Stool C. difficile DNA Amplification - Final 11/25/21 14:50 Urine, Clean Catch Urine Culture - Preliminary GPC Poss Enterococcus sp Physical Exam Narrative Const alert, oriented x3, no apparent distress and healthy appearing General Appearance: cooperative, well kempt and well developed Orientation / Consciousness: awake, oriented to person, oriented to place and oriented to time HEENT normocephalic, head/scalp atraumatic, hearing grossly normal bilaterally and moist oral mucous membranes Eyes PERRL, EOMs intact bilaterally and conjunctivae normal Neck nuchal rigidity, supple, no JVD, thyroid normal and no carotid bruits General: trachea midline Resp normal respiratory effort, no retractions, no use of accessory muscles and clear to auscultation bilaterally Auscultation: Negative for rales, rhonchi or wheezes Cardio regular rate, regular rhythm, S1 normal heart sound, S2 normal heart sound, no murmurs, no rub and no gallops GI normal to inspection, nondistended, normoactive bowel sounds, soft to palpation, non-tender and non-distended, abdomen is tympanic Extremity no clubbing, cyanosis or edema Skin no rashes or lesions noted General Skin Exam: no breakdown Neuro oriented x3, CN's II-XII intact bilaterally, moves all extremities, no focal motor deficits and no sensory deficits noted Sensorium / Orientation: awake and alert Speech: speech normal Psych affect normal Assessment & Plan Assessment/Plan (1) Nausea, vomiting and diarrhea: (2) MDS (myelodysplastic syndrome): PLAN: Plan 1. Persistent nausea and vomiting-etiology unclear at this point, this has appearred to be resolved at this time, will continue the patient's IV fluid at 75 cc/h #2 cystitis-patient will be transition over to oral antibiotics, her most recent UA shows small numbers of Enterococcus, her other urine culture showed Klebsiella-I will place her on Keflex twice a day #3 [id number]-[id number] will be given IV fluids with potassium chloride, IV potassium will be administered, BMP will be repeated in the morning #4 diarrhea-etiology unclear at this point, patient has a history of chronic diarrhea however, patient's enteric stool panel was negative, her lactoferrin was negative, her C. difficile studies were negative. #5 metastatic cholangiocarcinoma to the liver-patient sees outpatient oncology #6 chronic kidney disease stage III A-patient may have mild dehydration at this time, she will be given IV fluids-I will order the rate to 75 cc/h Charges/Coding Visit Charges OBSV E&M: 14152 Subsequent observation care L3
[2021-11-26 20:48] VITALS: BP 117/62; PULSE 97; RESP 16; TEMP 36.8; O2SAT 99
[2021-11-27 04:16] VITALS: BP 110/66; PULSE 108; RESP 16; TEMP 37.2; O2SAT 96
[2021-11-27] MEDS: KCL 20MEQ in 0.9% NS 20 MEQ/1,000 ML IV.SOLN. 75 MEQ IV (05:47)
[2021-11-27] MEDS: 0.9% Saline Lock 10 ML Syringe IV ×3 (06:08→20:31)
[2021-11-27 07:01] LABS: Anion Gap 10 (5-15); BUN 8 mg/dL (7-18); BUN/Creat Ratio 7.9 RATIO (10-20); Calcium,Total 6.9 mg/dL (8.5-10.1); Chloride 122 mmol/L (98-107); Creatinine, Serum 1.01 mg/dL (0.55-1.02); EST Glomerular Filtration Rate 57 mL/min (>60); Est Glom Filt Rate - Afr Amer 69 mL/min (>60); Estimated Creatinine Clearance 38.06 ml/min; Glucose 112 mg/dL (74-106); Sodium Level 143 mmol/L (136-145)
[2021-11-27 08:08] LABS: Magnesium 0.9 mg/dL (1.6-2.6); Phosphorus 1.6 mg/dL (2.5-4.9)
[2021-11-27] MEDS: Magnesium Sulfate 4gm/100mL 4 GM/100 ML IV.SOLN. IV (08:49)
[2021-11-27 09:01] VITALS: PULSE 114
[2021-11-27] MEDS: Pantoprazole Sodium 40 MG Tablet PO (09:01)
[2021-11-27] MEDS: Metoprolol Tartrate 25 MG Tablet PO (09:01)
[2021-11-27] MEDS: MESALAMINE 400 MG CAPSULE.DR PO ×2 (09:02→22:59)
[2021-11-27] MEDS: ARIPiprazole 5 MG Tablet PO (09:02)
[2021-11-27] MEDS: DULoxetine Hcl 60 MG Capsule 120 MG PO (09:02)
[2021-11-27] MEDS: Cephalexin 500 MG Capsule PO ×2 (09:03→23:00)
[2021-11-27] MEDS: Heparin Injection (Vial) 5,000 UNIT/ML VIAL 5000 UNIT SC ×2 (09:04→22:59)
[2021-11-27] MEDS: Menthol/Lanolin/Calamine/Znox 113 GM Tube 1 APPLIC TOPICAL (09:05)
--- NOTE | 2021-11-27 09:11 | CASEMGMT ---
Late entry for 11/26/2021 RN CM in to discuss MARKS form with patient. RN CM explained MARKS form, patient voiced understanding. Pt signed form and filed in chart. Pt provided with a copy of signed MARKS form. Patient had no further questions or concerns at this time.
[2021-11-27 09:19] VITALS: BP 117/75; PULSE 114; RESP 15; TEMP 36.8; O2SAT 93
[2021-11-27] MEDS: Loperamide 2 MG Capsule PO (09:28)
[2021-11-27] MEDS: Ondansetron 4 MG/2 ML Vial IV ×2 (09:28→20:27)
--- NOTE | 2021-11-27 10:17 | PCM.PN.HOSP ---
Subjective Subjective Feeling a little bit better today, mag and Phos are both very low and being replaced. She states that her nausea has been because of the chemotherapy that she is on, she has metastatic liver cancer that is going to her spine into her lungs Objective Data Objective Data Vital Signs: Vital Signs Temp Pulse Resp BP Pulse Ox 98.2 F 114 H 15 117/75 93 11/27/21 09:19 11/27/21 09:19 11/27/21 09:19 11/27/21 09:19 11/27/21 09:19 Oxygen Delivery Method Room Air Weight: 125 lb 4.796 oz Body Mass Index (BMI) 22.8 Intake & Output: Intake and Output for Last 24 Hours 11/26/21 11/27/21 11/28/21 03:59 03:59 03:59 Intake Total 2170 / 2170 3538.34 / 3538.34 605 / 605 Balance 2170 / 2170 3538.34 / 3538.34 605 / 605 Medical Nutrition Assessment Dietitian: Malnutrition Criteria Met Start: 11/26/21 12:02 Freq: Status: Active Protocol: Document 11/26/21 12:04 (Rec: 11/26/21 12:04 [id number]) Nutrition Malnutrition Evidence of Malnutrition Exists Yes Malnutrition (severe): Acute Illness/Injury Evidenced By Suboptimal Energy Intake ( Severe),Weight Loss (Severe) Clinical Problem Acute Disease or Injury Related Malnutrition Etiology (severe) related to nausea/ vomiting/diarrhea for 1 week Signs/Symptoms as evidenced by <50% intake of estimated energy needs for 1 week and 8.7% weight loss in 1 .5 weeks. Status Active Problem Recommendation Dietitian Recommendations/Changes Continue Regular diet Ensure Enlive (chocolate) TID with meals. Lab / Micro Data Result Diagrams: 11/25/21 13:40 11/27/21 06:05 Labs: Laboratory Results - last 24 hr 11/26/21 16:39: Sodium 142, Potassium 3.3 L, Chloride 120 H, Carbon Dioxide 15.0 L, Anion Gap 7, BUN 11, Creatinine 1.11 H, Estim Creat Clear Calc 34.63, Est GFR (MDRD) Af Amer 62, Est GFR (MDRD) Non-Af 51 L, BUN/Creatinine Ratio 9.9 L, Glucose 86, Calcium 7.1 L 11/27/21 06:05: Sodium 143, Potassium 3.0 L, Chloride 122 H, Carbon Dioxide 11.0 L, Anion Gap 10, BUN 8, Creatinine 1.01, Estim Creat Clear Calc 38.06, Est GFR (MDRD) Af Amer 69, Est GFR (MDRD) Non-Af 57 L, BUN/Creatinine Ratio 7.9 L, Glucose 112 H, Calcium 6.9 L 11/27/21 06:05: Phosphorus 1.6 L, Magnesium 0.9 L* Micro: Microbiology 11/25/21 14:50 Urine, Clean Catch Urine Culture - Final GPC Poss Enterococcus sp 11/25/21 15:10 Blood Culture (Wb) - Port Blood Culture - Preliminary No growth in 48 hours. 11/25/21 13:40 Blood Culture (Wb) - Port Blood Culture - Preliminary No growth in 48 hours. 11/25/21 16:40 Stool Stool Lactoferrin - Final 11/25/21 16:40 Stool Enteric Bacteriology - Final 11/25/21 16:40 Stool C. difficile DNA Amplification - Final Physical Exam Const alert, oriented x3 and no apparent distress General Appearance: cooperative HEENT normocephalic and moist oral mucous membranes Eyes PERRL, EOMs intact bilaterally and conjunctivae normal Neck supple and no JVD Resp normal respiratory effort, no retractions, no use of accessory muscles and clear to auscultation bilaterally Auscultation: Negative for crackles, rales, rhonchi or wheezes Cardio regular rate, regular rhythm, S1 normal heart sound, S2 normal heart sound and no murmurs GI soft to palpation, non-tender and non-distended; Negative for hepatosplenomegaly Extremity no clubbing, cyanosis or edema Skin no rashes or lesions noted Neuro no focal motor deficits and no sensory deficits noted Psych affect normal Appearance: appropriate Assessment & Plan Assessment/Plan (1) Nausea, vomiting and diarrhea: (2) MDS (myelodysplastic syndrome): PLAN: Plan 1. Nausea, vomiting and diarrhea secondary to chemo therapy for her metastatic cholangiocarcinoma ? She wants to hold off on doing chemotherapy this next week and skip a cycle ? We will continue with IV fluids ? Potassium is 3.0 with a phosphorus of 1.6 and a magnesium of 0.9. Will replace all 3 ? We will recheck electrolytes in the morning and make adjustments as necessary 2. Klebsiella UTI ? Continue with Keflex 3. CKD 3a ? Kidney functions seems to have baseline ? Continue to monitor 4. Anxiety/depression ? Stable ?continue with her home medications DVT: Heparin Charges/Coding Visit Charges OBSV E&M: 75379 Subsequent observation care L2
[2021-11-27] MEDS: Colestipol 1 GM TABLET 2 GM PO ×2 (10:28→22:58)
--- NOTE | 2021-11-27 14:31 | CASEMGMT ---
Social Work Per physician, pt not ready for discharge today but possibly tomorrow. Phone call to the [facility] and informed that pt is not ready for discharge today but tomorrow. Clinicals faxed. SW met with pt and discussed discharge plan. Pt plans to return to her assisted living at time of discharge and states her daughter Stephani will transport her. SW spent time with pt providing support regarding cancer diagnosis. Pt appreciative of visit and support. Plan: [facility], when medically ready ANAID Velásquez
[2021-11-27 14:56] VITALS: BP 129/70; PULSE 106; RESP 16; TEMP 36.7; O2SAT 100
[2021-11-27 22:51] VITALS: BP 107/61; PULSE 91; RESP 18; TEMP 36.4; O2SAT 98
[2021-11-28] VITALS (9 sets, daily range): BP systolic 105–149; BP diastolic 58–94; PULSE 101–131; RESP 16–24; TEMP 36.6–37.2; O2SAT 97–100
[2021-11-28] MEDS: Menthol/Lanolin/Calamine/Znox 113 GM Tube 1 APPLIC TOPICAL ×3 (01:24→20:52)
[2021-11-28 07:23] LABS: Absolute Lymphocyte Count 1.02 X10^3/uL (0.83-4.51); Absolute Neutrophil Count 0.5 X10^3/uL (2.0-7.7); Basophil# 0.05 X10^3/uL; Basophil% 1.9 % (0-1); Eosinophil# 0.05 X10^3/uL; Eosinophils% 1.9 % (0-5); Hematocrit 36.2 % (37-47); Hemoglobin 12.3 g/dL (12.0-15.0); Lymphocyte # 1.02 X10^3/ul (0.83-4.51); Lymphocyte % 37.8 % (19-41); Mean Corpuscular Hgb 30.8 pg (27.0-32.0); Mean Corpuscular Volume 90.7 fL (81-99); Mean Platelet Vol. 11.1 fl (6.2-12.0); Monocyte# 1.01 X10^3/uL; Monocyte% 37.4 % (0-10); NRBC Flagged by Analyzer 0.7 % (0-5); Neutrophil # 0.54 X10^3/uL (2.7-7.7); Neutrophil % 19.9 % (47-70); POSITIVE COUNT YES; POSITIVE DIFFERENTIAL YES; POSITIVE MORPHOLOGY YES; Platelet Count 80 K/mm3 (150-450); RBC Distribution Width CV 17.6 % (11.6-14.6); RBC Distribution Width SD 55.7 fl (35.1-43.9); Red Blood Count 3.99 M/mm3 (4.2-5.4); White Blood Count 2.7 K/mm3 (4.4-11.0)
[2021-11-28 07:43] LABS: Differential Indicated SCAN CRITERIA MET
[2021-11-28] MEDS: 0.9% Saline Lock 10 ML Syringe IV ×2 (07:46→11:36)
[2021-11-28] MEDS: Ondansetron 4 MG/2 ML Vial IV ×2 (07:46→17:16)
[2021-11-28 07:52] LABS: Anion Gap 11 (5-15); BUN 7 mg/dL (7-18); BUN/Creat Ratio 6.2 RATIO (10-20); Calcium,Total 7.6 mg/dL (8.5-10.1); Chloride 124 mmol/L (98-107); Creatinine, Serum 1.13 mg/dL (0.55-1.02); EST Glomerular Filtration Rate 50 mL/min (>60); Est Glom Filt Rate - Afr Amer 60 mL/min (>60); Estimated Creatinine Clearance 34.02 ml/min; Glucose 124 mg/dL (74-106); Potassium 2.9 mmol/L (3.5-5.1); Sodium Level 146 mmol/L (136-145)
[2021-11-28] MEDS: traMADol 50 MG Tablet PO ×2 (07:52→17:15)
[2021-11-28] MEDS: Loperamide 2 MG Capsule PO (07:52)
[2021-11-28 08:32] LABS: Magnesium 1.9 mg/dL (1.6-2.6); Phosphorus 3.4 mg/dL (2.5-4.9)
--- NOTE | 2021-11-28 08:39 | DCINST_ITS ---
Discharge Instructions Diet Discharge Diet: No restrictions Activity Discharge Activity: Return to Normal Activity Dressing / Incision Call your doctor if you observe: Fever of 101 or Higher, Shortness of breath, Dizziness, Fainting spells, Swelling in the ankles, Chest pain and Increased palpitations (irregular heartbeat) Follow Up Care Test Results: Test results from this visit will be discussed in further detail at your follow- up appointment, if applicable. Discharge Plan Admission Admit Date/Time: 11/25/21 16:56 Attending Provider: Jethro Stephenson Primary Care Provider: Caty Hudson Consulting Providers: Geovanny Monroy Additional Instructions / Restrictions: Follow-up with your primary care doctor in 3 to 5 days to monitor your electrolytes. I would recommend obtaining a BMP as well as a magnesium and a phosphorus as an outpatient. Discharge Orders/Prescriptions Prescriptions: New potassium chloride 20 mEq tablet extended release 20 meq PO BID 10 Days Qty: 20 0RF Continued colestipol [Colestid] 1 gram tablet 2 g PO BID multivitamin Tablet 1 tab PO DAILY lorazepam [Ativan] 0.5 mg tablet 0.5 mg PO TID PRN (Reason: Anxiety) pantoprazole 40 MG tablet 40 mg PO DAILY Qty: 30 0RF acidophilus-pectin, citrus 1 TABLET tablet 1 tab PO BID Qty: 60 0RF aripiprazole 5 MG tablet 5 mg PO DAILY metoprolol tartrate 25 MG tablet 25 mg PO DAILY duloxetine 60 mg capsule,delayed release(DR/EC) 120 mg PO DAILY oxybutynin chloride 10 mg tablet extended release 24hr 10 mg PO DAILY tramadol 50 mg tablet 50 mg PO TID PRN (Reason: Pain) promethazine 25 mg tablet 25 mg PO Q6H PRN (Reason: Nausea) cephalexin 500 MG capsule 500 mg PO Q6 Qty: 28 0RF loperamide 2 mg Capsule 4 mg PO Q6H PRN (Reason: Diarrhea) ondansetron HCl 4 mg Tablet 4 mg PO Q6H Antacid Chew 2 tab PO/SL BID acetaminophen 500 mg Tablet 1,000 mg PO TID melatonin 5 mg Tablet 5 mg PO QHS calcium citrate-vitamin D3 315 mg-6.25 mcg (250 unit) Tablet 2 tab PO DAILY mesalamine 0.375 gram Capsule,Extended Release 24hr 0.375 g PO BID magnesium oxide 400 mg magnesium Tablet 400 mg PO BID Referrals / Follow Up: Caty Hudson [Other] Caty Hudson [Other] Disposition Disposition (needs filled in before D/C Order can be placed): Home, Self Care
--- NOTE | 2021-11-28 08:45 | PCM.DC.SUM ---
Providers Date of Admission: 11/25/21 Primary Care Physician: Caty Hudson Reason For Visit: NAUSEA VOMITING / CYSTITIS Diagnosis Discharge Diagnosis (1) Nausea, vomiting and diarrhea: Status: Acute Code(s): R11.2 - Nausea with vomiting, unspecified; R19.7 - Diarrhea, unspecified (2) MDS (myelodysplastic syndrome): Status: Acute Code(s): D46.9 - Myelodysplastic syndrome, unspecified Medications at Discharge Home Medications acidophilus 25 million cell-pectin, citrus 100 mg tablet 1 tab PO BID #60 TABLETS 12/22/15 pantoprazole 40 mg tablet,delayed release 40 mg PO DAILY #30 TABLETS 12/22/15 aripiprazole 5 mg tablet 5 mg PO DAILY mood 06/27/19 metoprolol tartrate 25 mg tablet 25 mg PO DAILY bp 06/27/19 colestipol 1 gram tablet (Colestid) 2 g PO BID 10/15/21 duloxetine 60 mg capsule,delayed release 120 mg PO DAILY depression 10/15/21 lorazepam 0.5 mg tablet (Ativan) 0.5 mg PO TID PRN Anxiety 10/15/21 multivitamin 1 tab PO DAILY 10/15/21 cephalexin 500 mg capsule 500 mg PO Q6 #28 CAPSULES 11/23/21 oxybutynin chloride 10 mg tablet,extended release 24 hr 10 mg PO DAILY BLADDER 11/23/21 promethazine 25 mg tablet 25 mg PO Q6H PRN Nausea 11/23/21 tramadol 50 mg tablet 50 mg PO TID PRN Pain 11/23/21 Antacid Chew 2 tab PO/SL BID 11/25/21 acetaminophen 500 mg tablet 1,000 mg PO TID 11/25/21 calcium citrate 315 mg calcium-vitamin D3 6.25 mcg (250 unit) tablet 2 tab PO DAILY 11/25/21 loperamide 2 mg capsule 4 mg PO Q6H PRN Diarrhea 11/25/21 magnesium oxide 400 mg PO BID SUPPLEMENT 11/25/21 melatonin 5 mg tablet 5 mg PO QHS SLEEP 11/25/21 mesalamine 0.375 gram capsule,extended release 24 hr 0.375 g PO BID 11/25/21 ondansetron HCl 4 mg tablet 4 mg PO Q6H 11/25/21 potassium chloride 20 mEq tablet,extended release 20 meq PO BID 10 days #20 tabs 11/28/21 Hospital Course Operations None Procedures None Summary of Care Provided Minutes Spent on Discharge: 37 Hospital Course: Per HPI: SINGH NYE, is a 76 F who presents to the emergency room at [facility] with a chief complaint of nausea and vomiting with intermittent diarrhea x1 week.? Patient was seen in the emergency room 2 days ago here and diagnosed with a urinary tract infection, patient states she cannot take oral medications however due to persistent nausea and vomiting has not been able to take her antibiotic for 2 days.? Patient has a history of cholangiocarcinoma with metastatic disease to the liver, she recently had an abdominal CAT scan which showed some abnormality in the terminal ileum according to her oncologist who I talked to by phone today (Dr. Harden).? Patient however does have a history of Crohn's disease and is taking medications for Crohn's. Work-up in the emergency room today which was remarkable for blood cell count of 2.6, patient's creatinine was elevated at 1.25 and BUN was 19, potassium was 3.1.? Patient did not have vomiting in the emergency room today, a CT difficile toxin was performed on the patient's stool which is pending at the time of this dictation. Patient's urinalysis was remarkable for a WBC of 25-50, 4+ bacteria was seen, 5-10 RBCs were seen.? Patient's urine leukocyte Estrace was elevated at 100. Patient will be placed in observation status for hypokalemia and cystitis with nausea and vomiting, IV fluids will be administered, she was given IV Rocephin, patient's BMP will be monitored. Hospital Course: 1.? Nausea, vomiting and diarrhea secondary to chemo therapy for her metastatic cholangiocarcinoma ? She wants to hold off on doing chemotherapy this next week and skip a cycle ? We will continue with IV fluids ? Potassium is 3.0 with a phosphorus of 1.6 and a magnesium of 0.9 yesterday which were repleted ? On the day of discharge her magnesium and her phosphorus were normal however her potassium was still low at 2.9. She did receive 70 mEq of potassium total between IV and p.o. She does have Phenergan and Zofran at home therefore encouraged her to schedule these medications around p.o. intake. I also discharged her on 10 days worth of p.o. potassium to try to keep her potassium level up. She does want to skip this week of chemotherapy secondary to thinking that this is what is causing her nausea. I do recommend that she follow-up with her primary care physician next week for outpatient lab work and monitoring. I discussed with her the plan for discharge today she expressed understanding of the risk and benefits of going home and would like to go home today. 2.? Klebsiella UTI ? Continue with Keflex and complete her home prescription 3.? CKD 3a ? Kidney functions seems to have baseline ? Continue to monitor 4.? Anxiety/depression ? Stable ?continue with her home medications Medical Records Data Medical Nutrition Assessment Dietitian: Malnutrition Criteria Met Start: 11/26/21 12:02 Freq: Status: Active Protocol: Document 11/26/21 12:04 (Rec: 11/26/21 12:04 [id number]) Nutrition Malnutrition Evidence of Malnutrition Exists Yes Malnutrition (severe): Acute Illness/Injury Evidenced By Suboptimal Energy Intake ( Severe),Weight Loss (Severe) Clinical Problem Acute Disease or Injury Related Malnutrition Etiology (severe) related to nausea/ vomiting/diarrhea for 1 week Signs/Symptoms as evidenced by <50% intake of estimated energy needs for 1 week and 8.7% weight loss in 1 .5 weeks. Status Active Problem Recommendation Dietitian Recommendations/Changes Continue Regular diet Ensure Enlive (chocolate) TID with meals. Weight / BMI Weight Weight: 125 lb 4.796 oz Body Mass Index (BMI) 22.8 ABG / Lab / Microbiology Data Result Diagrams: 11/28/21 07:15 11/28/21 07:15 Laboratory: Laboratory Results - last 24 hr 11/28/21 07:15: WBC 2.7 L, RBC 3.99 L, Hgb 12.3, Hct 36.2 L, MCV 90.7, MCH 30.8, MCHC 34.0, RDW Std Deviation 55.7 H, RDW Coeff of Edson 17.6 H, Plt Count 80 L, MPV 11.1, Immature Gran % (Auto) 1.100 H, Neut % (Auto) 19.9 L, Lymph % (Auto) 37.8, Garvin % (Auto) 37.4 H, Eos % (Auto) 1.9, Baso % (Auto) 1.9 H, Absolute Neuts (auto) 0.5 L, Absolute Lymphs (auto) 1.02, Nucleated RBC % 0.7 11/28/21 07:15: Sodium 146 H, Potassium 2.9 L, Chloride 124 H, Carbon Dioxide 11.0 L, Anion Gap 11, BUN 7, Creatinine 1.13 H, Estim Creat Clear Calc 34.02, Est GFR (MDRD) Af Amer 60, Est GFR (MDRD) Non-Af 50 L, BUN/Creatinine Ratio 6.2 L, Glucose 124 H, Calcium 7.6 L 11/28/21 07:15: Phosphorus 3.4, Magnesium 1.9 Microbiology: Microbiology 11/25/21 14:50 Urine, Clean Catch Urine Culture - Final GPC Poss Enterococcus sp 11/25/21 15:10 Blood Culture (Wb) - Port Blood Culture - Preliminary No growth in 48 hours. 11/25/21 13:40 Blood Culture (Wb) - Port Blood Culture - Preliminary No growth in 48 hours. 11/25/21 16:40 Stool Stool Lactoferrin - Final 11/25/21 16:40 Stool Enteric Bacteriology - Final 11/25/21 16:40 Stool C. difficile DNA Amplification - Final D/C Instructions Discharge Diet: No restrictions Call your doctor if you observe: Fever of 101 or Higher, Shortness of breath, Dizziness, Fainting spells, Swelling in the ankles, Chest pain and Increased palpitations (irregular heartbeat) Meaningful Use Info Meaningful Use Diagnoses (Choose all that apply): None applicable Discharge Plan Admission Admit Date/Time: 11/25/21 16:56 Attending Provider: Jethro Stephenson Primary Care Provider: Caty Hudson Consulting Providers: Geovanny Monroy Additional Instructions / Restrictions: Follow-up with your primary care doctor in 3 to 5 days to monitor your electrolytes. I would recommend obtaining a BMP as well as a magnesium and a phosphorus as an outpatient. Discharge Orders/Prescriptions Prescriptions: New potassium chloride 20 mEq tablet extended release 20 meq PO BID 10 Days Qty: 20 0RF Continued colestipol [Colestid] 1 gram tablet 2 g PO BID multivitamin Tablet 1 tab PO DAILY lorazepam [Ativan] 0.5 mg tablet 0.5 mg PO TID PRN (Reason: Anxiety) pantoprazole 40 MG tablet 40 mg PO DAILY Qty: 30 0RF acidophilus-pectin, citrus 1 TABLET tablet 1 tab PO BID Qty: 60 0RF aripiprazole 5 MG tablet 5 mg PO DAILY metoprolol tartrate 25 MG tablet 25 mg PO DAILY duloxetine 60 mg capsule,delayed release(DR/EC) 120 mg PO DAILY oxybutynin chloride 10 mg tablet extended release 24hr 10 mg PO DAILY tramadol 50 mg tablet 50 mg PO TID PRN (Reason: Pain) promethazine 25 mg tablet 25 mg PO Q6H PRN (Reason: Nausea) cephalexin 500 MG capsule 500 mg PO Q6 Qty: 28 0RF loperamide 2 mg Capsule 4 mg PO Q6H PRN (Reason: Diarrhea) ondansetron HCl 4 mg Tablet 4 mg PO Q6H Antacid Chew 2 tab PO/SL BID acetaminophen 500 mg Tablet 1,000 mg PO TID melatonin 5 mg Tablet 5 mg PO QHS calcium citrate-vitamin D3 315 mg-6.25 mcg (250 unit) Tablet 2 tab PO DAILY mesalamine 0.375 gram Capsule,Extended Release 24hr 0.375 g PO BID magnesium oxide 400 mg magnesium Tablet 400 mg PO BID Referrals / Follow Up: Caty Hudson [Other] Caty Hudson [Other] Disposition Disposition (needs filled in before D/C Order can be placed): Home, Self Care Charges/Coding Visit Charges OBSV E&M: 80997 Observation care discharge
[2021-11-28 09:39] LABS: Toxic Granulation 1+
[2021-11-28 09:40] LABS: Differential Comment SCANNED
[2021-11-28] MEDS: Potassium Chloride 10mEq/100mL 10 MEQ/100 ML IV.SOLN. 100 MEQ IV BOLUS ×3 (10:17→12:44)
[2021-11-28] MEDS: Potassium Chloride Oral Tablet 20 MEQ 40 MEQ PO (10:17)
[2021-11-28] MEDS: Heparin Injection (Vial) 5,000 UNIT/ML VIAL 5000 UNIT SC ×2 (10:33→20:52)
[2021-11-28] MEDS: Colestipol 1 GM TABLET 2 GM PO ×2 (10:35→20:53)
[2021-11-28] MEDS: DULoxetine Hcl 60 MG Capsule 120 MG PO (10:36)
[2021-11-28] MEDS: Pantoprazole Sodium 40 MG Tablet PO (10:36)
[2021-11-28] MEDS: ARIPiprazole 5 MG Tablet PO (10:36)
[2021-11-28] MEDS: MESALAMINE 400 MG CAPSULE.DR PO ×2 (10:36→20:53)
[2021-11-28] MEDS: Cephalexin 500 MG Capsule PO ×2 (10:36→20:53)
[2021-11-28] MEDS: Metoprolol Tartrate 25 MG Tablet PO (11:08)
[2021-11-28] MEDS: proCHLORPERazine 10 MG/2 ML Vial 5 MG IV (11:36)
--- NOTE | 2021-11-28 16:56 | PCM.PN.HOSP ---
Subjective Subjective Doing well today, still having some nausea but she says it is better than it was. She is also still having some diarrhea Objective Data Objective Data Vital Signs: Vital Signs Temp Pulse Resp BP Pulse Ox 98.1 F 101 H 16 118/79 100 11/28/21 15:23 11/28/21 15:23 11/28/21 15:23 11/28/21 15:23 11/28/21 15:23 Oxygen Delivery Method Room Air Weight: 125 lb 4.796 oz Body Mass Index (BMI) 22.8 Intake & Output: Intake and Output for Last 24 Hours 11/27/21 11/28/21 11/29/21 03:59 03:59 03:59 Intake Total 3538.34 / 3538.34 2325 / 2325 470 / 470 Balance 3538.34 / 3538.34 2325 / 2325 470 / 470 Medical Nutrition Assessment Dietitian: Malnutrition Criteria Met Start: 11/26/21 12:02 Freq: Status: Active Protocol: Document 11/26/21 12:04 TERESO (Rec: 11/26/21 12:04 [id number]) Nutrition Malnutrition Evidence of Malnutrition Exists Yes Malnutrition (severe): Acute Illness/Injury Evidenced By Suboptimal Energy Intake ( Severe),Weight Loss (Severe) Clinical Problem Acute Disease or Injury Related Malnutrition Etiology (severe) related to nausea/ vomiting/diarrhea for 1 week Signs/Symptoms as evidenced by <50% intake of estimated energy needs for 1 week and 8.7% weight loss in 1 .5 weeks. Status Active Problem Recommendation Dietitian Recommendations/Changes Continue Regular diet Ensure Enlive (chocolate) TID with meals. Lab / Micro Data Result Diagrams: 11/28/21 07:15 11/28/21 07:15 Labs: Laboratory Results - last 24 hr 11/28/21 07:15: WBC 2.7 L, RBC 3.99 L, Hgb 12.3, Hct 36.2 L, MCV 90.7, MCH 30.8, MCHC 34.0, RDW Std Deviation 55.7 H, RDW Coeff of Edson 17.6 H, Plt Count 80 L, MPV 11.1, Immature Gran % (Auto) 1.100 H, Neut % (Auto) 19.9 L, Lymph % (Auto) 37.8, Addison % (Auto) 37.4 H, Eos % (Auto) 1.9, Baso % (Auto) 1.9 H, Absolute Neuts (auto) 0.5 L, Absolute Lymphs (auto) 1.02, Nucleated RBC % 0.7, Differential Comment SCANNED, Toxic Granulation 1+ 11/28/21 07:15: Sodium 146 H, Potassium 2.9 L, Chloride 124 H, Carbon Dioxide 11.0 L, Anion Gap 11, BUN 7, Creatinine 1.13 H, Estim Creat Clear Calc 34.02, Est GFR (MDRD) Af Amer 60, Est GFR (MDRD) Non-Af 50 L, BUN/Creatinine Ratio 6.2 L, Glucose 124 H, Calcium 7.6 L 11/28/21 07:15: Phosphorus 3.4, Magnesium 1.9 Micro: Microbiology 11/28/21 14:40 Nasal Secretion SARS-CoV-2 Antigen (Rapid) - Final 11/25/21 14:50 Urine, Clean Catch Urine Culture - Final GPC Poss Enterococcus sp 11/25/21 15:10 Blood Culture (Wb) - Port Blood Culture - Preliminary No growth in 48 hours. 11/25/21 13:40 Blood Culture (Wb) - Port Blood Culture - Preliminary No growth in 48 hours. 11/25/21 16:40 Stool Stool Lactoferrin - Final 11/25/21 16:40 Stool Enteric Bacteriology - Final 11/25/21 16:40 Stool C. difficile DNA Amplification - Final Physical Exam Narrative Const alert, oriented x3 and no apparent distress General Appearance: cooperative HEENT normocephalic and moist oral mucous membranes Eyes PERRL, EOMs intact bilaterally and conjunctivae normal Neck supple and no JVD Resp normal respiratory effort, no retractions, no use of accessory muscles and clear to auscultation bilaterally Auscultation: Negative for crackles, rales, rhonchi or wheezes Cardio regular rate, regular rhythm, S1 normal heart sound, S2 normal heart sound and no murmurs GI soft to palpation, non-tender and non-distended; Negative for hepatosplenomegaly Extremity no clubbing, cyanosis or edema Skin no rashes or lesions noted Neuro no focal motor deficits and no sensory deficits noted Psych affect normal Appearance: appropriate Assessment & Plan Assessment/Plan (1) Nausea, vomiting and diarrhea: (2) MDS (myelodysplastic syndrome): PLAN: Plan 1. Nausea, vomiting and diarrhea secondary to chemo therapy for her metastatic cholangiocarcinoma ? She wants to hold off on doing chemotherapy this next week ? We will continue with IV fluids ? Stool studies are negative for infection ? We will replace her potassium, her phosphorus and magnesium are normal ? We will recheck electrolytes in the morning and make adjustments as necessary ? Will make sure to increase the number of Imodium that she gets every day, had 25-minute advance care planning discussion with her and her daughter about the possibility for hospice discussion as the patient is not feel like she wants to do any further chemotherapy. We will call hospice to come and talk with her to have a discharge plan in place. 2. Klebsiella UTI ? Continue with Keflex 3. CKD 3a ? Kidney functions seems to have baseline ? Continue to monitor 4. Anxiety/depression ? Stable ?continue with her home medications DVT: Heparin Charges/Coding Visit Charges OBSV E&M: 32797 Subsequent observation care L2 Procedures Hospitalists Procedures: 39357 Advncd Care Plan 30 Min
--- NOTE | 2021-11-28 16:56 | NURSING ---
Daughter is here and was going to take pt back to assisted living but was concerned that her mother still had a lot of diarrhea and that her mother was not herself. Dr. Stephenson aware that came to talk to pt and daughter. Pt discharge was cancelled and wont be going back to assisted living today.
--- NOTE | 2021-11-28 18:23 | NURSING ---
Called into this room by Joanna VALIENTE, pt having SOB. Daughter at bedside. Vitals obtained. Hard to get accurate spo2 d/t gel nailpolish. This nurse called Frank from [facility] to ask him to bring ear probe for SPo2 since toes were not capturing spo2 either. Pt respirations 24/min. 02 at 2L Nc applied. Telly Monitor applied also as when this nurse listened to apical her apical was tacy at 121. Monitor showing pt HR at 131 and looks like Afib. Apical is irregular. Pt's daughter says in the ED, that pt had Afib for just a few minutes and then was fine but has never had aFib before. [facility] then called again by this nurse and informed them need of EKG.
--- NOTE | 2021-11-28 18:51 | EKG12_ITS ---
Test Reason : TACHYCARDIA Blood Pressure : / mmHG Vent. Rate : 130 BPM Atrial Rate : 130 BPM P-R Int : 164 ms QRS Dur : 066 ms QT Int : 294 ms P-R-T Axes : 077 -38 123 degrees QTc Int : 432 ms Sinus tachycardia Left axis deviation Low voltage QRS Confirmed by YUKI CAMACHO, BREE ([id number]), newspaper editor YADIRA LEON ([id number]) on 12/01/2021 8:49:26 AM Referred By: CARLOTTA Confirmed By:BREE MIRZA MD
[2021-11-28] MEDS: Loperamide 2 MG Capsule 4 MG PO (18:59)
[2021-11-28] MEDS: Ipratropium/Albuterol Sulfate 3 ML AMPUL.NEB INHALATION (19:25)
--- NOTE | 2021-11-28 19:42 | RAD_ITS ---
STUDY: X-RAY CHEST REASON FOR EXAM: Female, 76 years old. sob TECHNIQUE: AP COMPARISON: 11/25/2021 FINDINGS: Right chest port stable. EKG leads project over the chest. The lungs are clear and expanded. There is pleural fibrotic thickening of the pulmonary lung apices. Normal size heart. Normal mediastinum and latoya. Normal visualized pulmonary arteries. There is atherosclerotic tortuosity of the aortic arch and descending thoracic aorta. No acute bony process. Surgical roderick project in the right upper abdomen. RAD/Chest 1 View (Portable) IMPRESSION: Stable, nonacute portable x-ray examination of the chest. Electronically Signed: Ha Bagley MD (Brooks) at 20:29 EDT ,
[2021-11-28 20:01] LABS: Allen Test Positive; Base Excess -22 mmol/L (-2 to +2); Blood Gas Specimen Type ART; O2 Delivery Device Cannula; PO2 128 mmHG (75-100); SITE R Radial; SO2 98 % (95-99); Total Carbon Dioxide 7 mmol/L; pCO2 14.7 mmHg (35-45); pH 7.22 (7.35-7.45)
--- NOTE | 2021-11-28 20:14 | NURSING ---
This nurse was made aware of ABG results. Dr. Edmond is aware as well.
--- NOTE | 2021-11-28 20:15 | PN.HOSP_ITS ---
Addendum Addendum: Called to evaluate the patient secondary to shortness of breath and wheezing. Patient was noted to be tachypneic with respiratory rates in the 20s however appeared comfortable and having no acute distress. She has some fine wheezes diffusely and a breathing treatment has been ordered and is pending. A chest x- ray was ordered and shows no acute processes and no signs of volume overload. I did review her labs and she has a low serum bicarb at 11. ABG was obtained and she was found to have a pH of 7.22/PCO2 of 14.7/PO2 of 128 on 3 L nasal cannula. I suspect her PCO2 is been driven down to compensate for her metabolic acidosis and we will therefore start her on a bicarb drip and oral bicarb. That sounds if she has been having extensive amount of diarrhea and she is likely wasting bicarb through stool. Bicarb drip with 150 mill equivalents of sodium bicarb in D5W was initiated at a rate of 100 cc/h. Repeat BMP in a.m. to reassess sodium bicarb. Once serum bicarb normalizes would discontinue drip and monitor on oral. Patient with a history of tobacco abuse and COPD. Suspect wheezing may be related to this. As noted above nebulizers pending. We will give Solu- Medrol 60 mg IV push x1 dose and reevaluate.
[2021-11-28] MEDS: Sodium Bicarbonate 650 MG Tablet PO (20:52)
[2021-11-28] MEDS: MethylPREDNISolone 125 MG/2 ML Vial 60 MG IV (20:56)
[2021-11-29] VITALS (14 sets, daily range): BP systolic 71–122; BP diastolic 40–71; PULSE 92–102; RESP 16–20; TEMP 36.4–36.9; O2SAT 95–100
[2021-11-29] MEDS: Loperamide 2 MG Capsule 4 MG PO ×5 (01:35→22:55)
[2021-11-29] MEDS: 0.9% Normal Saline 1,000 ML 999 ML IV ×2 (02:45→04:27)
[2021-11-29] MEDS: Psyllium 1 PACKET PO ×2 (05:20→21:02)
[2021-11-29] MEDS: Heparin Injection (Vial) 5,000 UNIT/ML VIAL 5000 UNIT SC ×2 (07:59→21:00)
[2021-11-29] MEDS: Menthol/Lanolin/Calamine/Znox 113 GM Tube 1 APPLIC TOPICAL ×2 (08:00→21:00)
[2021-11-29] MEDS: DULoxetine Hcl 60 MG Capsule 120 MG PO (08:00)
[2021-11-29] MEDS: Pantoprazole Sodium 40 MG Tablet PO (08:01)
[2021-11-29] MEDS: Cephalexin 500 MG Capsule PO ×2 (08:01→21:01)
[2021-11-29] MEDS: Sodium Bicarbonate 650 MG Tablet PO ×4 (08:01→21:01)
[2021-11-29] MEDS: ARIPiprazole 5 MG Tablet PO (08:03)
[2021-11-29 08:04] LABS: Anion Gap 10 (5-15); BUN 8 mg/dL (7-18); BUN/Creat Ratio 5.9 RATIO (10-20); Calcium,Total 7.3 mg/dL (8.5-10.1); Chloride 124 mmol/L (98-107); Creatinine, Serum 1.35 mg/dL (0.55-1.02); EST Glomerular Filtration Rate 41 mL/min (>60); Est Glom Filt Rate - Afr Amer 49 mL/min (>60); Estimated Creatinine Clearance 28.48 ml/min; Glucose 202 mg/dL (74-106); Magnesium 1.5 mg/dL (1.6-2.6); Phosphorus 2.7 mg/dL (2.5-4.9); Potassium 2.5 mmol/L (3.5-5.1); Sodium Level 143 mmol/L (136-145)
[2021-11-29] MEDS: MESALAMINE 400 MG CAPSULE.DR PO ×2 (08:08→21:00)
--- NOTE | 2021-11-29 08:29 | NURSING ---
Pt up to chair at this time. Breakfast here and set up for pt.
--- NOTE | 2021-11-29 09:27 | PCM.PN.HOSP ---
Subjective Subjective Doing well, feels little bit better today. Last night she did have some episodes of hypotension was started back on her IV fluids for couple of boluses this morning bicarb is still low and as her chloride is still high she is continuing on her bicarb drip her potassium is low again as is her magnesium, her phosphorus seems to be stable at this point Objective Data Objective Data Vital Signs: Vital Signs Temp Pulse Resp BP Pulse Ox 97.9 F 101 H 20 H 122/66 H 96 11/29/21 07:54 11/29/21 07:54 11/29/21 07:54 11/29/21 07:54 11/29/21 07:54 Oxygen Flow Rate (L/min) 1 Oxygen Delivery Method Room Air Weight: 125 lb 4.796 oz Body Mass Index (BMI) 22.8 Intake & Output: Intake and Output for Last 24 Hours 11/28/21 11/29/21 11/30/21 03:59 03:59 03:59 Intake Total 2325 / 2325 2456.67 / 2456.67 1561.67 / 1561.67 Balance 2325 / 2325 2456.67 / 2456.67 1561.67 / 1561.67 Medical Nutrition Assessment Dietitian: Malnutrition Criteria Met Start: 11/26/21 12:02 Freq: Status: Active Protocol: Document 11/26/21 12:04 TERESO (Rec: 11/26/21 12:04 [id number]) Nutrition Malnutrition Evidence of Malnutrition Exists Yes Malnutrition (severe): Acute Illness/Injury Evidenced By Suboptimal Energy Intake ( Severe),Weight Loss (Severe) Clinical Problem Acute Disease or Injury Related Malnutrition Etiology (severe) related to nausea/ vomiting/diarrhea for 1 week Signs/Symptoms as evidenced by <50% intake of estimated energy needs for 1 week and 8.7% weight loss in 1 .5 weeks. Status Active Problem Recommendation Dietitian Recommendations/Changes Continue Regular diet Ensure Enlive (chocolate) TID with meals. Lab / Micro Data Result Diagrams: 11/28/21 07:15 11/29/21 07:25 Labs: Laboratory Results - last 24 hr 11/28/21 07:15: Differential Comment SCANNED, Toxic Granulation 1+ 11/29/21 07:25: Sodium 143, Potassium 2.5 L*, Chloride 124 H, Carbon Dioxide 9.0 L*, Anion Gap 10, BUN 8, Creatinine 1.35 H, Estim Creat Clear Calc 28.48, Est GFR (MDRD) Af Amer 49 L, Est GFR (MDRD) Non-Af 41 L, BUN/Creatinine Ratio 5.9 L, Glucose 202 H, Calcium 7.3 L, Phosphorus 2.7, Magnesium 1.5 L Micro: Microbiology 11/28/21 14:40 Nasal Secretion SARS-CoV-2 Antigen (Rapid) - Final 11/25/21 14:50 Urine, Clean Catch Urine Culture - Final GPC Poss Enterococcus sp 11/25/21 15:10 Blood Culture (Wb) - Port Blood Culture - Preliminary No growth in 48 hours. 11/25/21 13:40 Blood Culture (Wb) - Port Blood Culture - Preliminary No growth in 48 hours. 11/25/21 16:40 Stool Stool Lactoferrin - Final 11/25/21 16:40 Stool Enteric Bacteriology - Final 11/25/21 16:40 Stool C. difficile DNA Amplification - Final ABG Data ABG results: ABG 11/28/21 19:56 Specimen Type ART Sample Site R Radial pH 7.22 L Bicarbonate Actual 6.0 L Total CO2 7 Base Excess -22 L O2 Saturation 98 ABG pCO2 14.7 L* ABG pO2 128 H Christiano Test Positive O2 Delivery Device Cannula Liter Flow 3.0 Crit Call To/Read Back Yes Blood Gas Notified Whom Dr Edmond Radiography Diagnostic Testing: Radiology Impression Chest X-Ray 11/28/21 19:42 IMPRESSION: Stable, nonacute portable x-ray examination of the chest. Electronically Signed: Ha Bagley MD ([place]) at 20:29 EDT , Physical Exam Narrative Const alert, oriented x3 and no apparent distress General Appearance: cooperative HEENT normocephalic and moist oral mucous membranes Eyes PERRL, EOMs intact bilaterally and conjunctivae normal Neck supple and no JVD Resp normal respiratory effort, no retractions, no use of accessory muscles and clear to auscultation bilaterally Auscultation: Negative for crackles, rales, rhonchi or wheezes Cardio regular rate, regular rhythm, S1 normal heart sound, S2 normal heart sound and no murmurs GI soft to palpation, non-tender and non-distended; Negative for hepatosplenomegaly Extremity no clubbing, cyanosis or edema Skin no rashes or lesions noted Neuro no focal motor deficits and no sensory deficits noted Psych affect normal Appearance: appropriate Assessment & Plan Assessment/Plan (1) Nausea, vomiting and diarrhea: (2) MDS (myelodysplastic syndrome): PLAN: Plan 1.? Nausea, vomiting and diarrhea secondary to chemo therapy for her metastatic cholangiocarcinoma ? She wants to hold off on doing chemotherapy this next week ? We will continue with bicarb drip as well as p.o. bicarb ? Stool studies are negative for infection ? We will replace her potassium, and magnesium ? We will recheck electrolytes in the morning and make adjustments as necessary ? We will schedule her Imodium and she had Metamucil added overnight ? I discussed with her again whether or not she wants to discontinue chemotherapy and she said yes. She does want to meet with hospice this afternoon at 2 PM. 2.? Klebsiella UTI ? Continue with Keflex 3.? CKD 3a ? Kidney functions seems to have baseline ? Continue to monitor 4.? Anxiety/depression ? Stable ?continue with her home medications DVT: Heparin Charges/Coding Visit Charges Inpatient E&M: 09651 Subs Hosp L2
[2021-11-29] MEDS: Potassium Chloride 10mEq/100mL 10 MEQ/100 ML IV.SOLN. 100 MEQ IV BOLUS ×6 (09:29→18:17)
[2021-11-29] MEDS: Colestipol 1 GM TABLET 2 GM PO ×2 (11:19→21:00)
[2021-11-29 19:47] LABS: Anion Gap 10 (5-15); BUN 8 mg/dL (7-18); BUN/Creat Ratio 5.8 RATIO (10-20); Calcium,Total 7.3 mg/dL (8.5-10.1); Chloride 118 mmol/L (98-107); Creatinine, Serum 1.37 mg/dL (0.55-1.02); EST Glomerular Filtration Rate 40 mL/min (>60); Est Glom Filt Rate - Afr Amer 48 mL/min (>60); Estimated Creatinine Clearance 28.06 ml/min; Glucose 172 mg/dL (74-106); Potassium 2.9 mmol/L (3.5-5.1); Sodium Level 142 mmol/L (136-145)
[2021-11-30 03:05] VITALS: BP 136/70; PULSE 96; RESP 16; TEMP 36.6; O2SAT 94
[2021-11-30 05:07] LABS: Anion Gap 13 (5-15); BUN 8 mg/dL (7-18); BUN/Creat Ratio 6.2 RATIO (10-20); Calcium,Total 7.5 mg/dL (8.5-10.1); Chloride 115 mmol/L (98-107); Creatinine, Serum 1.28 mg/dL (0.55-1.02); EST Glomerular Filtration Rate 43 mL/min (>60); Est Glom Filt Rate - Afr Amer 52 mL/min (>60); Estimated Creatinine Clearance 30.03 ml/min; Glucose 218 mg/dL (74-106); Phosphorus 1.5 mg/dL (2.5-4.9); Potassium 2.1 mmol/L (3.5-5.1); Sodium Level 143 mmol/L (136-145)
[2021-11-30] MEDS: Potassium Chloride 20mEq/100mL 20 MEQ/100 ML IV.SOLN. 50 MEQ IV BOLUS ×2 (06:05→08:54)
[2021-11-30] MEDS: Potassium Chloride Oral Tablet 20 MEQ 40 MEQ PO (06:10)
[2021-11-30] MEDS: Loperamide 2 MG Capsule 4 MG PO ×4 (06:10→22:40)
[2021-11-30] MEDS: Psyllium 1 PACKET PO ×3 (06:22→22:41)
--- NOTE | 2021-11-30 07:57 | NURSING ---
Spoke with Palmira in the pharmacy and she states sodium bicarbonate and k-phos can run together.
--- NOTE | 2021-11-30 09:16 | PCM.PN.HOSP ---
Subjective Subjective Doing well, no issues overnight. Still having some diarrhea but denies any nausea or vomiting today. Increase p.o. intake if possible Objective Data Objective Data Vital Signs: Vital Signs Temp Pulse Resp BP Pulse Ox 97.8 F 96 16 136/70 H 94 11/30/21 03:05 11/30/21 03:05 11/30/21 03:05 11/30/21 03:05 11/30/21 03:05 Oxygen Flow Rate (L/min) 1 Oxygen Delivery Method Room Air Weight: 125 lb 4.796 oz Body Mass Index (BMI) 22.8 Intake & Output: Intake and Output for Last 24 Hours 11/29/21 11/30/21 12/01/21 03:59 03:59 03:59 Intake Total 2456.67 / 2456.67 4454.00 / 4454.00 1311.67 / 1311.67 Balance 2456.67 / 2456.67 4454.00 / 4454.00 1311.67 / 1311.67 Medical Nutrition Assessment Dietitian: Malnutrition Criteria Met Start: 11/26/21 12:02 Freq: Status: Active Protocol: Document 11/26/21 12:04 (Rec: 11/26/21 12:04 [id number]) Nutrition Malnutrition Evidence of Malnutrition Exists Yes Malnutrition (severe): Acute Illness/Injury Evidenced By Suboptimal Energy Intake ( Severe),Weight Loss (Severe) Clinical Problem Acute Disease or Injury Related Malnutrition Etiology (severe) related to nausea/ vomiting/diarrhea for 1 week Signs/Symptoms as evidenced by <50% intake of estimated energy needs for 1 week and 8.7% weight loss in 1 .5 weeks. Status Active Problem Recommendation Dietitian Recommendations/Changes Continue Regular diet Ensure Enlive (chocolate) TID with meals. Lab / Micro Data Result Diagrams: 11/28/21 07:15 11/30/21 03:27 Labs: Laboratory Results - last 24 hr 11/29/21 19:15: Sodium 142, Potassium 2.9 L, Chloride 118 H, Carbon Dioxide 14.0 L, Anion Gap 10, BUN 8, Creatinine 1.37 H, Estim Creat Clear Calc 28.06, Est GFR (MDRD) Af Amer 48 L, Est GFR (MDRD) Non-Af 40 L, BUN/Creatinine Ratio 5.8 L, Glucose 172 H, Calcium 7.3 L 11/30/21 03:27: Sodium 143, Potassium 2.1 L*, Chloride 115 H, Carbon Dioxide 15.0 L, Anion Gap 13, BUN 8, Creatinine 1.28 H, Estim Creat Clear Calc 30.03, Est GFR (MDRD) Af Amer 52 L, Est GFR (MDRD) Non-Af 43 L, BUN/Creatinine Ratio 6.2 L, Glucose 218 H, Calcium 7.5 L, Phosphorus 1.5 L, Magnesium 2.0 Micro: Microbiology 11/25/21 16:40 Stool Ova and Parasites - Final 11/28/21 14:40 Nasal Secretion SARS-CoV-2 Antigen (Rapid) - Final 11/25/21 14:50 Urine, Clean Catch Urine Culture - Final GPC Poss Enterococcus sp 11/25/21 15:10 Blood Culture (Wb) - Port Blood Culture - Preliminary No growth in 48 hours. 11/25/21 13:40 Blood Culture (Wb) - Port Blood Culture - Preliminary No growth in 48 hours. 11/25/21 16:40 Stool Stool Lactoferrin - Final 11/25/21 16:40 Stool Enteric Bacteriology - Final 11/25/21 16:40 Stool C. difficile DNA Amplification - Final Physical Exam Narrative Const alert, oriented x3 and no apparent distress General Appearance: cooperative HEENT normocephalic and moist oral mucous membranes Eyes PERRL, EOMs intact bilaterally and conjunctivae normal Neck supple and no JVD Resp normal respiratory effort, no retractions, no use of accessory muscles and clear to auscultation bilaterally Auscultation: Negative for crackles, rales, rhonchi or wheezes Cardio regular rate, regular rhythm, S1 normal heart sound, S2 normal heart sound and no murmurs GI soft to palpation, non-tender and non-distended; Negative for hepatosplenomegaly Extremity no clubbing, cyanosis or edema Skin no rashes or lesions noted Neuro no focal motor deficits and no sensory deficits noted Psych affect normal Appearance: appropriate Assessment & Plan Assessment/Plan (1) Nausea, vomiting and diarrhea: (2) MDS (myelodysplastic syndrome): PLAN: Plan 1.? Nausea, vomiting and diarrhea secondary to chemo therapy for her metastatic cholangiocarcinoma ? She wants to hold off on doing chemotherapy this next week ? We will continue with bicarb drip as well as p.o. bicarb ? Stool studies are negative for infection ? Replace her phosphorus and her potassium, magnesium is 2 ? We will recheck electrolytes in the morning and make adjustments as necessary ? We will schedule her Imodium and she had Metamucil added ? She and the family met with hospice yesterday and they all agreed to proceed with hospice once discharged at the assisted living. 2.? Klebsiella UTI ? Completed antibiotic course 3.? CKD 3a ? Kidney functions seems to have baseline ? Continue to monitor 4.? Anxiety/depression ? Stable ?continue with her home medications DVT: Heparin Charges/Coding Visit Charges Inpatient E&M: 59559 Subs Hosp L2
[2021-11-30 09:44] VITALS: BP 119/64; PULSE 96; RESP 18; TEMP 36.5; O2SAT 100
[2021-11-30 09:48] VITALS: PULSE 99
[2021-11-30] MEDS: Metoprolol Tartrate 25 MG Tablet PO (09:48)
[2021-11-30] MEDS: Menthol/Lanolin/Calamine/Znox 113 GM Tube 1 APPLIC TOPICAL ×2 (09:48→22:40)
[2021-11-30] MEDS: DULoxetine Hcl 60 MG Capsule 120 MG PO (09:48)
[2021-11-30] MEDS: Sodium Bicarbonate 650 MG Tablet PO ×4 (09:48→22:40)
[2021-11-30] MEDS: MESALAMINE 400 MG CAPSULE.DR PO ×2 (09:49→22:40)
[2021-11-30] MEDS: ARIPiprazole 5 MG Tablet PO (09:49)
[2021-11-30] MEDS: Heparin Injection (Vial) 5,000 UNIT/ML VIAL 5000 UNIT SC ×2 (09:49→22:40)
[2021-11-30] MEDS: Pantoprazole Sodium 40 MG Tablet PO (09:49)
[2021-11-30] MEDS: Colestipol 1 GM TABLET 2 GM PO (11:27)
[2021-11-30] MEDS: 0.9% Saline Lock 10 ML Syringe IV (11:27)
--- NOTE | 2021-11-30 11:30 | NURSING ---
According to pharmacy, we are unable to run k-phos and k-riders together. Pharmacist recommends we run the k-phos after current k-riders are completed. The sodium bicarb will need to be paused as well during this time. Dr. Stephenson states it is ok to pause bicarb for this.
[2021-11-30 14:51] VITALS: BP 115/69; PULSE 91; RESP 16; TEMP 36.6; O2SAT 95
--- NOTE | 2021-11-30 15:55 | CASEMGMT ---
Social Work Per Dr. Stephenson, patient to discharge to assisted living with hospice ([facility]) when medically cleared. PLAN: [facility] with [facility] services. Tito CORDERO, KSENIA
--- NOTE | 2021-11-30 17:31 | CON.PCM_ITS ---
Assessment & Plan Assessment/Plan (1) Crohn's disease: PLAN: I am not sure if she has active disease at this time. I am okay with her going on steroid therapy. I would check ESR, CRP and fecal calprotectin. (2) Chronic diarrhea: PLAN: I do not think that she has CMV induced diarrhea which she can get in the setting of Crohn's therapy. I suspect that she has a vasoactive peptide induced diarrhea secondary to chemotherapy in the setting of short gut syndrome. She is also has elements of bile acid induced diarrhea and she is experiencing bile induced reflux. I would take her off of colestipol and place her on cholestyramine 3 times a day and octreotide drip and PPI drip. I would not give her any other oral therapies at this time. HPI Consult Data Date of Consult: 11/30/21 HPI Narrative Reason for Consultation: crohns disease HPI Narrative: SINGH NYE, is a 76 F who presents 76 F who presented to the emergency room at [facility] with a chief complaint of nausea and vomiting with intermittent diarrhea x1 week.? Patient was seen in the emergency room 2 days ago here and diagnosed with a urinary tract infection, patient states she cannot take oral medications however due to persistent nausea and vomiting has not been able to take her antibiotic for 2 days.? 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 She recently had an abdominal CAT scan which showed some abnormality in the terminal ileum .? Patient however does have a history of Crohn's disease and is taking mesalamine for Crohn's. She has had 3 bowel resections and has a previous diagnosis of short gut syndrome. She has never been on anti-TNF or Cristian 2 inhibitors. Her diarrhea became really bad after her fourth treatment of chemotherapy for metastatic cholangiocarcinoma Work-up in the emergency room today which was remarkable for blood cell count of 2.6, patient's creatinine was elevated at 1.25 and BUN was 19, potassium was 1.9.? She was also discovered to have a severe lactic acidosis secondary to worsening diarrhea along with hypophosatemia and hypomagnesemia patient did not have vomiting in the emergency room today, a CT difficile toxin was negative. Also, stool for enteric pathogens, fecal leukocytes and ova and parasites were noted negative [facility] Medical History (Updated 11/25/21 @ 16:52 by Serena J Lamp) Abnormal EKG Anemia Anxiety Bone cancer CKD (chronic kidney disease) COPD (chronic obstructive pulmonary disease) Depression Essential hypertension Former smoker Hypertension Hypertension Liver cancer Lung cancer MDS (myelodysplastic syndrome) Metastasis Migraines Osteoporosis Pulmonary embolism Tachycardia Home Medications acidophilus 25 million cell-pectin, citrus 100 mg tablet 1 tab PO BID #60 TABLETS 12/22/15 [Rx Last Taken 11/25/21] pantoprazole 40 mg tablet,delayed release 40 mg PO DAILY #30 TABLETS 12/22/15 [Rx Last Taken 11/25/21] aripiprazole 5 mg tablet 5 mg PO DAILY mood 06/27/19 [History Last Taken 11/25/21] metoprolol tartrate 25 mg tablet 25 mg PO DAILY bp 06/27/19 [History Last Taken 11/25/21] colestipol 1 gram tablet (Colestid) 2 g PO BID 10/15/21 [History Last Taken 11/25/21] duloxetine 60 mg capsule,delayed release 120 mg PO DAILY depression 10/15/21 [History Last Taken 11/25/21] lorazepam 0.5 mg tablet (Ativan) 0.5 mg PO TID PRN Anxiety 10/15/21 [History Last Taken Unknown] multivitamin 1 tab PO DAILY 10/15/21 [History Last Taken 11/25/21] cephalexin 500 mg capsule 500 mg PO Q6 #28 CAPSULES 11/23/21 [Rx Last Taken 11/25/21] oxybutynin chloride 10 mg tablet,extended release 24 hr 10 mg PO DAILY BLADDER 11/23/21 [History Last Taken 11/25/21] promethazine 25 mg tablet 25 mg PO Q6H PRN Nausea 11/23/21 [History Last Taken Unknown] tramadol 50 mg tablet 50 mg PO TID PRN Pain 11/23/21 [History Last Taken Unknown] Antacid Chew 2 tab PO/SL BID 11/25/21 [History Last Taken 11/25/21] acetaminophen 500 mg tablet 1,000 mg PO TID 11/25/21 [History Last Taken 11/25/21] calcium citrate 315 mg calcium-vitamin D3 6.25 mcg (250 unit) tablet 2 tab PO DAILY 11/25/21 [History Last Taken 11/25/21] loperamide 2 mg capsule 4 mg PO Q6H PRN Diarrhea 11/25/21 [History Last Taken 11/25/21] magnesium oxide 400 mg PO BID SUPPLEMENT 11/25/21 [History Last Taken 11/25/21] melatonin 5 mg tablet 5 mg PO QHS SLEEP 11/25/21 [History Last Taken 11/24/21] mesalamine 0.375 gram capsule,extended release 24 hr 0.375 g PO BID 11/25/21 [History Last Taken 11/25/21] ondansetron HCl 4 mg tablet 4 mg PO Q6H 11/25/21 [History Last Taken 11/25/21] potassium chloride 20 mEq tablet,extended release 20 meq PO BID 10 days #20 tabs 11/28/21 [Rx Last Taken Unknown] Allergy/AdvReac Type Severity Reaction Status Date / Time erythromycin base Allergy Other Verified 11/25/21 13:22 levofloxacin [From Levaquin] Allergy Other Verified 11/25/21 13:22 Penicillins Allergy Other Verified 11/25/21 13:22 prednisone Allergy Other Verified 11/25/21 13:22 Sulfa (Sulfonamide Allergy Other Verified 11/25/21 13:22 Antibiotics) Family History Other COPD (chronic obstructive pulmonary disease) Cancer Surgical History (Updated 11/25/21 @ 16:52 by Serena Contreras) H/O: hysterectomy History of appendectomy History of bowel resection History of resection of liver Hx of cholecystectomy Social History Smoking Status: Former smoker alcohol intake: never substance use type: does not use caffeine: Yes ROS Constitutional Constitutional: Denies anorexia, change in weight, fever(s), night sweats or weakness Eyes Eyes: Denies blurry vision, change in vision, discharge from eye(s) or eye pain Cardiovascular Cardiovascular: Denies chest pain, claudication, edema or palpitations Respiratory/Chest Respiratory/Chest: Denies cough, hemoptysis, shortness of breath at rest or shor tness of breath with exertion Gastrointestinal Gastrointestinal: Reports diarrhea Genitourinary Genitourinary: Denies difficulty urinating, dysuria, hematuria, nocturia, urinary frequency, urinary hesitancy, urinary incontinence or urinary urgency Musculoskeletal Musculoskeletal: Denies back pain, joint pain, joint stiffness, joint swelling, myalgias or neck pain Neurologic Neurologic: Denies abnormal gait, abnormal speech, dizziness, focal weakness, headache(s), loss of vision, numbness, other visual disturbances, paresthesias, syncope or tingling Psychiatric Psychiatric: Denies anxiety, cognitive impairment, depression, irritability, mood swings or suicidal ideation Endocrine Endocrinology: Denies change in body appearance, cold intolerance, excessive sweating, heat intolerance, polydipsia or polyuria Hematologic/Lymphatic Hematologic/Lymphatic: Denies none, anemia, easy bleeding, easy bruising or lymphadenopathy Allergic/Immunologic Allergic/Immunologic: Denies rhinitis, urticaria, eczemia or asthma Physical Exam Narrative Const alert, oriented x3 and no apparent distress General Appearance: cooperative HEENT normocephalic and moist oral mucous membranes Eyes PERRL, EOMs intact bilaterally and conjunctivae normal Neck supple and no JVD Resp normal respiratory effort, no retractions, no use of accessory muscles and clear to auscultation bilaterally Auscultation: Negative for crackles, rales, rhonchi or wheezes Cardio regular rate, regular rhythm, S1 normal heart sound, S2 normal heart sound and no murmurs GI soft to palpation, non-tender and non-distended; Negative for hepatosplenomegaly Extremity no clubbing, cyanosis or edema Skin no rashes or lesions noted Neuro no focal motor deficits and no sensory deficits noted Psych affect normal Appearance: appropriate Medical Records Data Medical Nutrition Assessment Dietitian: Malnutrition Criteria Met Start: 11/26/21 12:02 Freq: Status: Active Protocol: Document 11/30/21 16:44 JUAN MANUEL (Rec: 11/30/21 16:44 [facility] [id number]) Nutrition Malnutrition Evidence of Malnutrition Exists Yes Malnutrition (severe): Acute Illness/Injury Evidenced By Suboptimal Energy Intake ( Severe),Weight Loss (Severe) Clinical Problem Acute Disease or Injury Related Malnutrition Etiology (severe) related to nausea/ vomiting/diarrhea 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 7% weight loss in 2 weeks. Status Active Problem Recommendation Dietitian Recommendations/Changes Continue Regular diet Change 8 oz ensure enlive w/ meals to 4 oz Ensure Enlive ( chocolate) 4x/day with [employer] Lab / Micro Data Result Diagrams: 11/28/21 07:15 11/30/21 03:27 Labs: Laboratory Results - last 24 hr 11/29/21 19:15: Sodium 142, Potassium 2.9 L, Chloride 118 H, Carbon Dioxide 14.0 L, Anion Gap 10, BUN 8, Creatinine 1.37 H, Estim Creat Clear Calc 28.06, Est GFR (MDRD) Af Amer 48 L, Est GFR (MDRD) Non-Af 40 L, BUN/Creatinine Ratio 5.8 L, Glucose 172 H, Calcium 7.3 L 11/30/21 03:27: Sodium 143, Potassium 2.1 L*, Chloride 115 H, Carbon Dioxide 15.0 L, Anion Gap 13, BUN 8, Creatinine 1.28 H, Estim Creat Clear Calc 30.03, Est GFR (MDRD) Af Amer 52 L, Est GFR (MDRD) Non-Af 43 L, BUN/Creatinine Ratio 6.2 L, Glucose 218 H, Calcium 7.5 L, Phosphorus 1.5 L, Magnesium 2.0 Micro: Microbiology 11/25/21 13:40 Blood Culture (Wb) - Port Blood Culture - Final No growth in 5 days. Charges/Coding Visit Charges Inpatient E&M: 73491 Init Hosp L3
[2021-11-30] MEDS: Potassium Chloride 10mEq/100mL 10 MEQ/100 ML IV.SOLN. 100 MEQ IV BOLUS ×4 (18:19→21:43)
[2021-11-30 18:32] LABS: Erythrocyte Sedimentation Rate 34 mm/hr (0-30)
--- NOTE | 2021-11-30 19:18 | NURSING ---
Spoke with Jay in Pharmacy about compatibility of IV medications for Stefanie. He states the Sandostatin and Protonix are compatible and may be ran together.
[2021-11-30 19:41] VITALS: BP 117/73; PULSE 80; RESP 16; TEMP 36.3; O2SAT 93
[2021-12-01 02:40] VITALS: BP 120/77; PULSE 75; RESP 16; TEMP 36.6; O2SAT 94
[2021-12-01] MEDS: Loperamide 2 MG Capsule 4 MG PO ×4 (05:52→23:37)
[2021-12-01 06:15] LABS: Hematocrit 23.4 % (37-47); Hemoglobin 8.1 g/dL (12.0-15.0); Mean Corp Hgb Conc 34.6 g/dL (32-36); Mean Corpuscular Hgb 30.1 pg (27.0-32.0); Mean Platelet Vol. 10.8 fl (6.2-12.0); POSITIVE COUNT YES; POSITIVE DIFFERENTIAL YES; POSITIVE MORPHOLOGY YES; Platelet Count 88 K/mm3 (150-450); RBC Distribution Width CV 17.6 % (11.6-14.6); RBC Distribution Width SD 52.5 fl (35.1-43.9); Red Blood Count 2.69 M/mm3 (4.2-5.4); White Blood Count 4.1 K/mm3 (4.4-11.0)
[2021-12-01 06:21] LABS: Differential Indicated MANUAL DIFF
[2021-12-01 06:44] LABS: Neutrophil-Band 8 % (0-5); Neutrophil-Segmented 60 % (47-70); Total Cells Counted 100 (MANUAL DIFF)
[2021-12-01 06:45] LABS: Lymphocyte 16 % (19-41); Metamyelocyte 2 % (0-1); Monocyte 8 % (0-10); Myelocyte 6 % (0-0); Toxic Granulation 2+
[2021-12-01 06:46] LABS: Platelet Estimate MOD DEC (ADEQ); Red Cell Morphology NORM C+C NORMAL (NORM C&C)
[2021-12-01 06:47] LABS: Absolute Lymphocyte Count 0.65 X10^3/uL (0.83-4.51); Absolute Neutrophil Count 2.8 X10^3/uL (2.0-7.7); Lymphocyte # 0.65 X10^3/ul (0.83-4.51); Neutrophil # 2.76 X10^3/uL (2.7-7.7)
[2021-12-01 06:48] LABS: Anion Gap 10 (5-15); BUN 10 mg/dL (7-18); BUN/Creat Ratio 8.3 RATIO (10-20); Calcium,Total 6.7 mg/dL (8.5-10.1); Chloride 110 mmol/L (98-107); EST Glomerular Filtration Rate 47 mL/min (>60); Est Glom Filt Rate - Afr Amer 56 mL/min (>60); Estimated Creatinine Clearance 32.04 ml/min; Glucose 298 mg/dL (74-106); Magnesium 1.6 mg/dL (1.6-2.6); Phosphorus 2.3 mg/dL (2.5-4.9); Potassium 2.7 mmol/L (3.5-5.1); Sodium Level 141 mmol/L (136-145)
[2021-12-01 09:00] VITALS: BP 115/63; PULSE 95; RESP 16; TEMP 36.6; O2SAT 99
[2021-12-01 09:02] VITALS: PULSE 96
[2021-12-01] MEDS: Metoprolol Tartrate 25 MG Tablet PO (09:02)
[2021-12-01] MEDS: DULoxetine Hcl 60 MG Capsule 120 MG PO (09:02)
[2021-12-01] MEDS: Menthol/Lanolin/Calamine/Znox 113 GM Tube 1 APPLIC TOPICAL ×2 (09:02→23:36)
[2021-12-01] MEDS: MESALAMINE 400 MG CAPSULE.DR PO ×2 (09:03→23:38)
[2021-12-01] MEDS: ARIPiprazole 5 MG Tablet PO (09:03)
[2021-12-01] MEDS: Potassium Chloride 10mEq/100mL 10 MEQ/100 ML IV.SOLN. 100 MEQ IV BOLUS ×3 (09:26→11:26)
--- NOTE | 2021-12-01 10:28 | PCM.PN.HOSP ---
Subjective Subjective Doing well, sitting in the chair today no issues overnight. Still having some diarrhea though it does appear to be less. I discussed situation with her oncologist today who states that hospice is a correct decision as her cancer has advanced Objective Data Objective Data Vital Signs: Vital Signs Temp Pulse Resp BP Pulse Ox 98 F 96 16 115/63 99 12/01/21 09:00 12/01/21 09:02 12/01/21 09:00 12/01/21 09:00 12/01/21 09:00 Oxygen Flow Rate (L/min) 1 Oxygen Delivery Method Room Air Weight: 125 lb 4.796 oz Body Mass Index (BMI) 22.8 Intake & Output: Intake and Output for Last 24 Hours 11/30/21 12/01/21 12/02/21 03:59 03:59 03:59 Intake Total 4454.00 / 4454.00 4115.01 / 4115.01 1236.46 / 1236.46 Output Total 800 / 800 Balance 4454.00 / 4454.00 3315.01 / 3315.01 1236.46 / 1236.46 Medical Nutrition Assessment Dietitian: Malnutrition Criteria Met Start: 11/26/21 12:02 Freq: Status: Active Protocol: Document 11/30/21 16:44 JUAN MANUEL (Rec: 11/30/21 16:44 JUAN MANUEL [id number]) Nutrition Malnutrition Evidence of Malnutrition Exists Yes Malnutrition (severe): Acute Illness/Injury Evidenced By Suboptimal Energy Intake ( Severe),Weight Loss (Severe) Clinical Problem Acute Disease or Injury Related Malnutrition Etiology (severe) related to nausea/ vomiting/diarrhea 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 7% weight loss in 2 weeks. Status Active Problem Recommendation Dietitian Recommendations/Changes Continue Regular diet Change 8 oz ensure enlive w/ meals to 4 oz Ensure Enlive ( chocolate) 4x/day with [employer] Lab / Micro Data Result Diagrams: 12/01/21 04:54 12/01/21 04:54 Labs: Laboratory Results - last 24 hr 11/30/21 17:55: ESR 34 H 11/30/21 17:55: C-React Prot Ext Range 40.90 H 12/01/21 04:54: WBC 4.1 L, RBC 2.69 L, Hgb 8.1 L, Hct 23.4 L, MCV 87.0, MCH 30.1, MCHC 34.6, RDW Std Deviation 52.5 H, RDW Coeff of Edson 17.6 H, Plt Count 88 L, MPV 10.8, Neut % (Auto) Not Reportable, Absolute Neuts (auto) 2.8, Absolute Lymphs (auto) 0.65 L, Total Counted 100, Neutrophils % (Manual) 60, Band Neutrophils % 8 H, Lymphocytes % (Manual) 16 L, Monocytes % (Manual) 8, Metamyelocytes % 2 H, Myelocytes % 6 H, Diff Path Review May foll, Toxic Granulation 2+, Platelet Estimate MOD DEC, RBC Morphology NORM C+C 12/01/21 04:54: Sodium 141, Potassium 2.7 L*, Chloride 110 H, Carbon Dioxide 21.0, Anion Gap 10, BUN 10, Creatinine 1.20 H, Estim Creat Clear Calc 32.04, Est GFR (MDRD) Af Amer 56 L, Est GFR (MDRD) Non-Af 47 L, BUN/Creatinine Ratio 8.3 L, Glucose 298 H, Calcium 6.7 L, Phosphorus 2.3 L, Magnesium 1.6 Micro: Microbiology 11/25/21 15:10 Blood Culture (Wb) - Port Blood Culture - Final No growth in 5 days. 11/25/21 13:40 Blood Culture (Wb) - Port Blood Culture - Final No growth in 5 days. 11/25/21 16:40 Stool Ova and Parasites - Final 11/28/21 14:40 Nasal Secretion SARS-CoV-2 Antigen (Rapid) - Final 11/25/21 14:50 Urine, Clean Catch Urine Culture - Final GPC Poss Enterococcus sp 11/25/21 16:40 Stool Stool Lactoferrin - Final 11/25/21 16:40 Stool Enteric Bacteriology - Final 11/25/21 16:40 Stool C. difficile DNA Amplification - Final Physical Exam Narrative Const alert, oriented x3 and no apparent distress General Appearance: cooperative HEENT normocephalic and moist oral mucous membranes Eyes PERRL, EOMs intact bilaterally and conjunctivae normal Neck supple and no JVD Resp normal respiratory effort, no retractions, no use of accessory muscles and clear to auscultation bilaterally Auscultation: Negative for crackles, rales, rhonchi or wheezes Cardio regular rate, regular rhythm, S1 normal heart sound, S2 normal heart sound and no murmurs GI soft to palpation, non-tender and non-distended; Negative for hepatosplenomegaly Extremity no clubbing, cyanosis or edema Skin no rashes or lesions noted Neuro no focal motor deficits and no sensory deficits noted Psych affect normal Appearance: appropriate Assessment & Plan Assessment/Plan (1) Nausea, vomiting and diarrhea: (2) MDS (myelodysplastic syndrome): PLAN: Plan 1.? Nausea, vomiting and diarrhea secondary to chemo therapy for her metastatic cholangiocarcinoma ? We will discontinue her oral bicarb and her bicarb drip. Will encourage p.o. intake ? Stool studies are negative for infection ? We will recheck electrolytes in the morning and make adjustments as necessary ? We will schedule her Imodium and she had Metamucil added, I did consult gastroenterology at the assistance of family, they are in agreement that this is likely not active Crohn's disease and is likely chemotherapy-induced. We will continue with the octreotide and her other oral therapies and change her colestipol to cholestyramine ? She and the family met with hospice yesterday and they all agreed to proceed with hospice once discharged at the assisted living. 2.? Klebsiella UTI ? Completed antibiotic course 3.? CKD 3a ? Kidney functions seems to have baseline ? Continue to monitor 4.? Anxiety/depression ? Stable ?continue with her home medications 5. Anemia ? Unsure as to the origin could potentially be nutrient deficiency as nursing has not noticed any dark black stools or emesis ? We will recheck this afternoon and potentially start her on iron replacement DVT: SCDs Charges/Coding Visit Charges Inpatient E&M: 83666 Subs Hosp L2
[2021-12-01] MEDS: Cholestyramine/Sucrose 4 GM/PACKET PO ×2 (10:56→17:27)
[2021-12-01] MEDS: NYSTATIN 500,000 UNIT/5 ML UDC 500000 UNIT PO ×3 (11:29→23:37)
[2021-12-01 13:41] LABS: Pathologist Review Reviewed
[2021-12-01 14:17] LABS: Hematocrit 27.7 % (37-47); Hemoglobin 10.4 g/dL (12.0-15.0)
[2021-12-01] MEDS: 0.9% Saline Lock 10 ML Syringe IV (14:23)
[2021-12-01 14:37] VITALS: BP 122/66; PULSE 80; RESP 18; TEMP 36.6; O2SAT 98
[2021-12-01 20:00] VITALS: BP 139/78; PULSE 82; RESP 18; TEMP 36.4; O2SAT 100
[2021-12-01] MEDS: Psyllium 1 PACKET PO (23:37)
[2021-12-01] MEDS: Pantoprazole Sodium 40 MG Tablet PO (23:37)
[2021-12-01] MEDS: Heparin Injection (Vial) 5,000 UNIT/ML VIAL 5000 UNIT SC (23:38)
[2021-12-02 02:15] VITALS: BP 145/79; PULSE 83; RESP 16; TEMP 36.5; O2SAT 99
[2021-12-02 05:57] LABS: Anion Gap 11 (5-15); BUN 9 mg/dL (7-18); BUN/Creat Ratio 7.4 RATIO (10-20); Calcium,Total 6.5 mg/dL (8.5-10.1); Chloride 113 mmol/L (98-107); Creatinine, Serum 1.21 mg/dL (0.55-1.02); EST Glomerular Filtration Rate 46 mL/min (>60); Est Glom Filt Rate - Afr Amer 56 mL/min (>60); Estimated Creatinine Clearance 31.77 ml/min; Glucose 213 mg/dL (74-106); Magnesium 1.9 mg/dL (1.6-2.6); Phosphorus 2.9 mg/dL (2.5-4.9); Potassium 2.9 mmol/L (3.5-5.1); Sodium Level 144 mmol/L (136-145)
[2021-12-02] MEDS: Loperamide 2 MG Capsule 4 MG PO ×3 (06:28→17:21)
[2021-12-02 07:35] VITALS: O2SAT 99
[2021-12-02 07:43] VITALS: BP 132/77; PULSE 84; RESP 18; TEMP 36.6; O2SAT 99
[2021-12-02] MEDS: Cholestyramine/Sucrose 4 GM/PACKET PO ×2 (07:51→17:21)
[2021-12-02] MEDS: Potassium Chloride 20mEq/100mL 20 MEQ/100 ML IV.SOLN. 50 MEQ IV BOLUS ×2 (08:45→11:01)
--- NOTE | 2021-12-02 09:54 | PCM.PN.HOSP ---
Subjective Subjective Feeling much better today, and keeps asking to go home. She is planning on going back to the assisted living with hospice care. Objective Data Objective Data Vital Signs: Vital Signs Temp Pulse Resp BP Pulse Ox 97.9 F 84 18 132/77 H 99 12/02/21 07:43 12/02/21 07:43 12/02/21 07:43 12/02/21 07:43 12/02/21 07:43 Oxygen Flow Rate (L/min) 1 Oxygen Delivery Method Room Air Weight: 125 lb 4.796 oz Body Mass Index (BMI) 22.8 Intake & Output: Intake and Output for Last 24 Hours 12/01/21 12/02/21 12/03/21 03:59 03:59 03:59 Intake Total 4115.01 / 4115.01 3197.00 / 3197.00 160.21 / 160.21 Output Total 800 / 800 Balance 3315.01 / 3315.01 3197.00 / 3197.00 160.21 / 160.21 Medical Nutrition Assessment Dietitian: Malnutrition Criteria Met Start: 11/26/21 12:02 Freq: Status: Active Protocol: Document 11/30/21 16:44 SLA (Rec: 11/30/21 16:44 SLA [id number]) Nutrition Malnutrition Evidence of Malnutrition Exists Yes Malnutrition (severe): Acute Illness/Injury Evidenced By Suboptimal Energy Intake ( Severe),Weight Loss (Severe) Clinical Problem Acute Disease or Injury Related Malnutrition Etiology (severe) related to nausea/ vomiting/diarrhea 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 7% weight loss in 2 weeks. Status Active Problem Recommendation Dietitian Recommendations/Changes Continue Regular diet Change 8 oz ensure enlive w/ meals to 4 oz Ensure Enlive ( chocolate) 4x/day with [employer] Lab / Micro Data Result Diagrams: 12/01/21 14:05 12/02/21 04:06 Labs: Laboratory Results - last 24 hr 12/01/21 04:54: Diff Path Review Reviewed 12/01/21 14:05: Hgb 10.4 L, Hct 27.7 L 12/02/21 04:06: Sodium 144, Potassium 2.9 L, Chloride 113 H, Carbon Dioxide 20.0 L, Anion Gap 11, BUN 9, Creatinine 1.21 H, Estim Creat Clear Calc 31.77, Est GFR (MDRD) Af Amer 56 L, Est GFR (MDRD) Non-Af 46 L, BUN/Creatinine Ratio 7.4 L, Glucose 213 H, Calcium 6.5 L*, Phosphorus 2.9, Magnesium 1.9 Micro: Microbiology 11/25/21 15:10 Blood Culture (Wb) - Port Blood Culture - Final No growth in 5 days. 11/25/21 13:40 Blood Culture (Wb) - Port Blood Culture - Final No growth in 5 days. 11/25/21 16:40 Stool Ova and Parasites - Final 11/28/21 14:40 Nasal Secretion SARS-CoV-2 Antigen (Rapid) - Final 11/25/21 14:50 Urine, Clean Catch Urine Culture - Final GPC Poss Enterococcus sp 11/25/21 16:40 Stool Stool Lactoferrin - Final 11/25/21 16:40 Stool Enteric Bacteriology - Final 11/25/21 16:40 Stool C. difficile DNA Amplification - Final Physical Exam Narrative Const alert, oriented x3 and no apparent distress General Appearance: cooperative HEENT normocephalic and moist oral mucous membranes Eyes PERRL, EOMs intact bilaterally and conjunctivae normal Neck supple and no JVD Resp normal respiratory effort, no retractions, no use of accessory muscles and clear to auscultation bilaterally Auscultation: Negative for crackles, rales, rhonchi or wheezes Cardio regular rate, regular rhythm, S1 normal heart sound, S2 normal heart sound and no murmurs GI soft to palpation, non-tender and non-distended; Negative for hepatosplenomegaly Extremity no clubbing, cyanosis or edema Skin no rashes or lesions noted Neuro no focal motor deficits and no sensory deficits noted Psych affect normal Appearance: appropriate Assessment & Plan Assessment/Plan (1) Nausea, vomiting and diarrhea: (2) MDS (myelodysplastic syndrome): PLAN: Plan 1.? Nausea, vomiting and diarrhea secondary to chemo therapy for her metastatic cholangiocarcinoma ? Continue to encourage p.o. intake, continue with p.o. bicarb ? Stool studies are negative for infection ? We will recheck electrolytes in the morning and make adjustments as necessary ? We will schedule her Imodium and she had Metamucil added, I did consult gastroenterology at the assistance of family, they are in agreement that this is likely not active Crohn's disease and is likely chemotherapy-induced. Continue with her other oral therapies and change her colestipol to cholestyramine ? We will discontinue the octreotide today and see if without this we can get her diarrhea under control for discharge planning ? She and the family met with hospice and they all agreed to proceed with hospice once discharged at the assisted living. 2.? Klebsiella UTI ? Completed antibiotic course 3.? CKD 3a ? Kidney functions seems to have baseline ? Continue to monitor 4.? Anxiety/depression ? Stable ?continue with her home medications 5. Anemia ? Unsure as to the origin could potentially be nutrient deficiency as nursing has not noticed any dark black stools or emesis ? Recheck hemoglobin was 10 therefore her initial hemoglobin of 8 was an anomaly DVT: SCDs Charges/Coding Visit Charges Inpatient E&M: 50893 Subs Hosp L2
[2021-12-02 10:19] VITALS: PULSE 84
[2021-12-02] MEDS: Metoprolol Tartrate 25 MG Tablet PO (10:19)
[2021-12-02] MEDS: Menthol/Lanolin/Calamine/Znox 113 GM Tube 1 APPLIC TOPICAL (10:19)
[2021-12-02] MEDS: ARIPiprazole 5 MG Tablet PO (10:19)
[2021-12-02] MEDS: Sodium Bicarbonate 650 MG Tablet PO ×4 (10:19→22:05)
[2021-12-02] MEDS: Pantoprazole Sodium 40 MG Tablet PO ×2 (10:19→22:02)
[2021-12-02] MEDS: MESALAMINE 400 MG CAPSULE.DR PO ×2 (10:20→22:02)
[2021-12-02] MEDS: Heparin Injection (Vial) 5,000 UNIT/ML VIAL 5000 UNIT SC ×2 (10:20→22:03)
[2021-12-02] MEDS: DULoxetine Hcl 60 MG Capsule 120 MG PO (10:20)
[2021-12-02] MEDS: NYSTATIN 500,000 UNIT/5 ML UDC 500000 UNIT PO ×4 (10:20→22:03)
--- NOTE | 2021-12-02 11:21 | CASEMGMT ---
Social Work SW rounded with physician who states pt is not medically stable for discharge today but may be ready tomorrow. Phone call placed to Yadi at [facility]. Yadi confirms Hospice did meet with pt and dgt on Wednesday 11/29. Pt is current with palliative medicine but after meeting, pt and family have decided once stable in the hospital, pt will return to her home in the Assisted Living and will meet with [facility] there and transition from palliative to hospice care. EZRA will notify [facility] of discharge date. Plan: Raya at [facility] with [facility], when medically stable ANAID Velásquez
[2021-12-02] MEDS: 0.9% Saline Lock 10 ML Syringe IV (13:49)
[2021-12-02 14:00] VITALS: BP 132/72; PULSE 74; RESP 18; TEMP 36.6; O2SAT 99
--- NOTE | 2021-12-02 18:12 | PN_ITS ---
Subjective Subjective She is diarrhea is much better today. She had about 4 episodes of more solid stools without any episodes of fecal incontinence today. She is tolerating a diet without nausea, bloating abdominal pain. Objective Data Objective Data Vital Signs: Vital Signs Temp Pulse Resp BP Pulse Ox 97.9 F 74 18 132/72 H 99 12/02/21 14:00 12/02/21 14:00 12/02/21 14:00 12/02/21 14:00 12/02/21 14:00 Oxygen Flow Rate (L/min) 1 Oxygen Delivery Method Room Air Weight: 125 lb 4.796 oz Body Mass Index (BMI) 22.8 Intake & Output: Intake and Output for Last 24 Hours 11/30/21 12/01/21 12/02/21 23:59 23:59 23:59 Intake Total 4315.01 / 4315.01 2957.00 / 3197.00 720.21 / 720.21 Output Total 800 / 800 Balance 3515.01 / 3515.01 2957.00 / 3197.00 720.21 / 720.21 Medical Nutrition Assessment Dietitian: Malnutrition Criteria Met Start: 11/26/21 12:02 Freq: Status: Active Protocol: Document 12/02/21 14:37 LO (Rec: 12/02/21 14:37 [id number]) Nutrition Malnutrition Evidence of Malnutrition Exists Yes Malnutrition (severe): Acute Illness/Injury Evidenced By Suboptimal Energy Intake ( Severe),Weight Loss (Severe) Clinical Problem Acute Disease or Injury Related Malnutrition Etiology (severe) related to nausea/ vomiting/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 7% weight loss in 2 weeks. Status Active Problem Recommendation Dietitian Recommendations/Changes Continue Regular diet 8 oz ensure enlive w/ meals Lab / Micro Data Result Diagrams: 12/01/21 14:05 12/02/21 04:06 Labs: Laboratory Results - last 24 hr 12/02/21 04:06: Sodium 144, Potassium 2.9 L, Chloride 113 H, Carbon Dioxide 20.0 L, Anion Gap 11, BUN 9, Creatinine 1.21 H, Estim Creat Clear Calc 31.77, Est GFR (MDRD) Af Amer 56 L, Est GFR (MDRD) Non-Af 46 L, BUN/Creatinine Ratio 7.4 L, Glucose 213 H, Calcium 6.5 L*, Phosphorus 2.9, Magnesium 1.9 Micro: Microbiology 11/25/21 15:10 Blood Culture (Wb) - Port Blood Culture - Final No growth in 5 days. 11/25/21 13:40 Blood Culture (Wb) - Port Blood Culture - Final No growth in 5 days. 11/25/21 16:40 Stool Ova and Parasites - Final 11/28/21 14:40 Nasal Secretion SARS-CoV-2 Antigen (Rapid) - Final 11/25/21 14:50 Urine, Clean Catch Urine Culture - Final GPC Poss Enterococcus sp 11/25/21 16:40 Stool Stool Lactoferrin - Final 11/25/21 16:40 Stool Enteric Bacteriology - Final 11/25/21 16:40 Stool C. difficile DNA Amplification - Final Physical Exam Narrative Const alert, oriented x3 and no apparent distress General Appearance: cooperative HEENT normocephalic and moist oral mucous membranes Eyes PERRL, EOMs intact bilaterally and conjunctivae normal Neck supple and no JVD Resp normal respiratory effort, no retractions, no use of accessory muscles and clear to auscultation bilaterally Auscultation: Negative for crackles, rales, rhonchi or wheezes Cardio regular rate, regular rhythm, S1 normal heart sound, S2 normal heart sound and no murmurs GI soft to palpation, non-tender and non-distended; Negative for hepatosplenomegaly Extremity no clubbing, cyanosis or edema Skin no rashes or lesions noted Neuro no focal motor deficits and no sensory deficits noted Psych affect normal Appearance: appropriate Assessment & Plan Assessment/Plan (1) Intrahepatic cholangiocarcinoma: PLAN: Patient is going to hospice and is not seeking chemotherapy (2) Crohn's disease: PLAN: She is on steroid therapy and does not seem to be exhibiting any signs of acute Crohn's disease at this time. As an outpatient I will switch her to Pentasa 1 g twice a day therapy instead of mesalamine based therapy as basic mesalamine does not in the small bowel. As she transitions out of the hospital I would have her on 40 mg of prednisone per day. (3) Chronic diarrhea: PLAN: Chronic diarrhea secondary to short gut syndrome. We can administer Gatt ex as an outpatient. If she goes home she can be on octreotide 200 mcg subcu injection twice daily or 3 times daily as an outpatient for her chronic diarrhea secondary to chemotherapy and short gut syndrome until she can have Gattex therapy. Charges/Coding Visit Charges Inpatient E&M: 70934 Subs Hosp L3
[2021-12-02 21:57] VITALS: BP 143/77; PULSE 69; RESP 18; TEMP 36.2; O2SAT 100
[2021-12-02] MEDS: Psyllium 1 PACKET PO (22:03)
[2021-12-03] MEDS: Loperamide 2 MG Capsule 4 MG PO ×5 (00:13→23:53)
[2021-12-03 03:55] VITALS: BP 169/99; PULSE 102; RESP 18; TEMP 36.7; O2SAT 97
[2021-12-03] MEDS: Menthol/Lanolin/Calamine/Znox 113 GM Tube 1 APPLIC TOPICAL ×3 (04:04→22:40)
[2021-12-03] MEDS: Psyllium 1 PACKET PO ×2 (05:59→22:37)
[2021-12-03 07:03] LABS: Anion Gap 10 (5-15); BUN 11 mg/dL (7-18); BUN/Creat Ratio 9.7 RATIO (10-20); Calcium,Total 6.3 mg/dL (8.5-10.1); Chloride 109 mmol/L (98-107); Creatinine, Serum 1.13 mg/dL (0.55-1.02); EST Glomerular Filtration Rate 50 mL/min (>60); Est Glom Filt Rate - Afr Amer 60 mL/min (>60); Estimated Creatinine Clearance 34.02 ml/min; Glucose 195 mg/dL (74-106); Magnesium 1.5 mg/dL (1.6-2.6); Phosphorus 1.9 mg/dL (2.5-4.9); Sodium Level 141 mmol/L (136-145)
[2021-12-03 07:29] LABS: Albumin, Serum 2.1 g/dL (3.2-5.0)
[2021-12-03 07:45] VITALS: BP 136/69; PULSE 82; RESP 18; TEMP 36.6; O2SAT 99
[2021-12-03] MEDS: Magnesium Sulfate 4gm/100mL 4 GM/100 ML IV.SOLN. IV (08:00)
[2021-12-03] MEDS: Cholestyramine/Sucrose 4 GM/PACKET PO ×2 (08:02→18:35)
[2021-12-03] MEDS: ARIPiprazole 5 MG Tablet PO (09:43)
[2021-12-03] MEDS: Sodium Bicarbonate 650 MG Tablet PO ×4 (09:43→22:39)
[2021-12-03 09:44] VITALS: BP 136/69; PULSE 82
[2021-12-03] MEDS: Metoprolol Tartrate 25 MG Tablet PO (09:44)
[2021-12-03] MEDS: Pantoprazole Sodium 40 MG Tablet PO ×2 (09:44→22:39)
[2021-12-03] MEDS: NYSTATIN 500,000 UNIT/5 ML UDC 500000 UNIT PO ×4 (09:44→22:39)
[2021-12-03] MEDS: Heparin Injection (Vial) 5,000 UNIT/ML VIAL 5000 UNIT SC ×2 (09:45→22:38)
[2021-12-03 13:50] VITALS: BP 139/62; PULSE 71; RESP 18; TEMP 36.4; O2SAT 98
[2021-12-03] MEDS: DULoxetine Hcl 60 MG Capsule 120 MG PO (13:56)
[2021-12-03] MEDS: 0.9% Saline Lock 10 ML Syringe IV (14:10)
--- NOTE | 2021-12-03 14:28 | PN.HOSP_ITS ---
Subjective Subjective Feeling much better today, she has not had any episodes of incontinence and is able to make it to the bathroom. Unfortunate electrolytes are still a little bit abnormal Objective Data Objective Data Vital Signs: Vital Signs Temp Pulse Resp BP Pulse Ox 97.5 F L 71 18 139/62 H 98 12/03/21 13:50 12/03/21 13:50 12/03/21 13:50 12/03/21 13:50 12/03/21 13:50 Oxygen Flow Rate (L/min) 1 Oxygen Delivery Method Room Air Weight: 125 lb 4.796 oz Body Mass Index (BMI) 22.8 Intake & Output: Intake and Output for Last 24 Hours 12/02/21 12/03/21 12/04/21 03:59 03:59 03:59 Intake Total 3197.00 / 3197.00 680.21 / 680.21 470 / 470 Output Total 60 / 60 Balance 3197.00 / 3197.00 680.21 / 680.21 410 / 410 Medical Nutrition Assessment Dietitian: Malnutrition Criteria Met Start: 11/26/21 12:02 Freq: Status: Active Protocol: Document 12/02/21 14:37 (Rec: 12/02/21 14:37 [id number]) Nutrition Malnutrition Evidence of Malnutrition Exists Yes Malnutrition (severe): Acute Illness/Injury Evidenced By Suboptimal Energy Intake ( Severe),Weight Loss (Severe) Clinical Problem Acute Disease or Injury Related Malnutrition Etiology (severe) related to 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 7% weight loss in 2 weeks. Status Active Problem Recommendation Dietitian Recommendations/Changes Continue Regular diet 8 oz ensure enlive w/ meals Lab / Micro Data Result Diagrams: 12/01/21 14:05 12/03/21 04:39 Labs: Laboratory Results - last 24 hr 12/03/21 04:39: Sodium 141, Potassium 3.0 L, Chloride 109 H, Carbon Dioxide 22.0, Anion Gap 10, BUN 11, Creatinine 1.13 H, Estim Creat Clear Calc 34.02, Est GFR (MDRD) Af Amer 60, Est GFR (MDRD) Non-Af 50 L, BUN/Creatinine Ratio 9.7 L, Glucose 195 H, Calcium 6.3 L*, Phosphorus 1.9 L, Magnesium 1.5 L 12/03/21 04:39: Albumin 2.1 L Micro: Microbiology 11/25/21 15:10 Blood Culture (Wb) - Port Blood Culture - Final No growth in 5 days. 11/25/21 13:40 Blood Culture (Wb) - Port Blood Culture - Final No growth in 5 days. 11/25/21 16:40 Stool Ova and Parasites - Final 11/28/21 14:40 Nasal Secretion SARS-CoV-2 Antigen (Rapid) - Final 11/25/21 14:50 Urine, Clean Catch Urine Culture - Final GPC Poss Enterococcus sp 11/25/21 16:40 Stool Stool Lactoferrin - Final 11/25/21 16:40 Stool Enteric Bacteriology - Final 11/25/21 16:40 Stool C. difficile DNA Amplification - Final Physical Exam Narrative Const alert, oriented x3 and no apparent distress General Appearance: cooperative HEENT normocephalic and moist oral mucous membranes Eyes PERRL, EOMs intact bilaterally and conjunctivae normal Neck supple and no JVD Resp normal respiratory effort, no retractions, no use of accessory muscles and clear to auscultation bilaterally Auscultation: Negative for crackles, rales, rhonchi or wheezes Cardio regular rate, regular rhythm, S1 normal heart sound, S2 normal heart sound and no murmurs GI soft to palpation, non-tender and non-distended; Negative for hepatosplenomegaly Extremity no clubbing, cyanosis or edema Skin no rashes or lesions noted Neuro no focal motor deficits and no sensory deficits noted Psych affect normal Appearance: appropriate Assessment & Plan Assessment/Plan (1) Nausea, vomiting and diarrhea: (2) MDS (myelodysplastic syndrome): PLAN: Plan 1.? Nausea, vomiting and diarrhea secondary to chemo therapy for her metastatic cholangiocarcinoma ? Continue to encourage p.o. intake, continue with p.o. bicarb ? Stool studies are negative for infection ? We will recheck electrolytes in the morning and make adjustments as necessary ? We will schedule her Imodium and she had Metamucil added, I did consult gastroenterology at the assistance of family, they are in agreement that this is likely not active Crohn's disease and is likely chemotherapy-induced. Continue with her other oral therapies and change her colestipol to cholestyramine ? Given that she will be going home with hospice the subcu octreotide injections may be too expensive to pay for [id number] therefore I have discontinued the octreotide to see how her diarrhea does in the next 24 to 48 hours to see if we can get away without it. ? We will continue to replace her electrolytes, her calcium is low today so we will check a vitamin D level and start her on p.o. replacement. I did check an albumin with correction she still low to 7.9. ? She and the family met with hospice and they all agreed to proceed with hospice once discharged at the assisted living. 2.? Klebsiella UTI ? Completed antibiotic course 3.? CKD 3a ? Kidney functions seems to have baseline ? Continue to monitor 4.? Anxiety/depression ? Stable ?continue with her home medications 5. Anemia ? Unsure as to the origin could potentially be nutrient deficiency as nursing has not noticed any dark black stools or emesis ? Recheck hemoglobin was 10 therefore her initial hemoglobin of 8 was an anomaly DVT: SCDs Charges/Coding Visit Charges Inpatient E&M: 87414 Subs Hosp L2
[2021-12-03] MEDS: Cholecalciferol (Vit D3) 125 MCG CAPSULE (5,000 UNITS) PO (14:38)
[2021-12-03] MEDS: MESALAMINE 400 MG CAPSULE.DR PO ×2 (14:38→22:39)
--- NOTE | 2021-12-03 18:42 | PN_ITS ---
Subjective Subjective Patient is depressed that her diarrhea came back. She has not been eating very well. Objective Data Objective Data Vital Signs: Vital Signs Temp Pulse Resp BP Pulse Ox 97.5 F L 71 18 139/62 H 98 12/03/21 13:50 12/03/21 13:50 12/03/21 13:50 12/03/21 13:50 12/03/21 13:50 Oxygen Flow Rate (L/min) 1 Oxygen Delivery Method Room Air Weight: 125 lb 4.796 oz Body Mass Index (BMI) 22.8 Intake & Output: Intake and Output for Last 24 Hours 12/01/21 12/02/21 12/03/21 23:59 23:59 23:59 Intake Total 2957.00 / 3197.00 920.21 / 920.21 730 / 730 Output Total 60 / 60 Balance 2957.00 / 3197.00 920.21 / 920.21 670 / 670 Medical Nutrition Assessment Dietitian: Malnutrition Criteria Met Start: 11/26/21 12:02 Freq: Status: Active Protocol: Document 12/02/21 14:37 LO (Rec: 12/02/21 14:37 [id number]) Nutrition Malnutrition Evidence of Malnutrition Exists Yes Malnutrition (severe): Acute Illness/Injury Evidenced By Suboptimal Energy Intake ( Severe),Weight Loss (Severe) Clinical Problem Acute Disease or Injury Related Malnutrition Etiology (severe) related to nausea/ 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 7% weight loss in 2 weeks. Status Active Problem Recommendation Dietitian Recommendations/Changes Continue Regular diet 8 oz ensure enlive w/ meals Lab / Micro Data Result Diagrams: 12/01/21 14:05 12/03/21 04:39 Labs: Laboratory Results - last 24 hr 12/03/21 04:39: Sodium 141, Potassium 3.0 L, Chloride 109 H, Carbon Dioxide 2 2.0, Anion Gap 10, BUN 11, Creatinine 1.13 H, Estim Creat Clear Calc 34.02, Est GFR (MDRD) Af Amer 60, Est GFR (MDRD) Non-Af 50 L, BUN/Creatinine Ratio 9.7 L, Glucose 195 H, Calcium 6.3 L*, Phosphorus 1.9 L, Magnesium 1.5 L 12/03/21 04:39: Albumin 2.1 L Micro: Microbiology 11/25/21 15:10 Blood Culture (Wb) - Port Blood Culture - Final No growth in 5 days. 11/25/21 13:40 Blood Culture (Wb) - Port Blood Culture - Final No growth in 5 days. 11/25/21 16:40 Stool Ova and Parasites - Final 11/28/21 14:40 Nasal Secretion SARS-CoV-2 Antigen (Rapid) - Final 11/25/21 14:50 Urine, Clean Catch Urine Culture - Final GPC Poss Enterococcus sp 11/25/21 16:40 Stool Stool Lactoferrin - Final 11/25/21 16:40 Stool Enteric Bacteriology - Final 11/25/21 16:40 Stool C. difficile DNA Amplification - Final Physical Exam Narrative Const alert, oriented x3 and no apparent distress General Appearance: cooperative HEENT normocephalic and moist oral mucous membranes Eyes PERRL, EOMs intact bilaterally and conjunctivae normal Neck supple and no JVD Resp normal respiratory effort, no retractions, no use of accessory muscles and clear to auscultation bilaterally Auscultation: Negative for crackles, rales, rhonchi or wheezes Cardio regular rate, regular rhythm, S1 normal heart sound, S2 normal heart sound and no murmurs GI soft to palpation, non-tender and non-distended; Negative for hepatosplenomegaly Extremity no clubbing, cyanosis or edema Skin no rashes or lesions noted Neuro no focal motor deficits and no sensory deficits noted Psych affect normal Appearance: appropriate Assessment & Plan Assessment/Plan (1) Intrahepatic cholangiocarcinoma: PLAN: Patient is scheduled to undergo hospice care upon leaving the hospital. (2) Crohn's disease: PLAN: She can be switched to oral steroid therapy with 40 mg of prednisone a day. (3) Chronic diarrhea: PLAN: Diarrhea was much improved on octreotide drip. I had a conversation with her daughter on the phone and I will start her on subcutaneous octreotide at that point 5 mg 3 times a day. Hopefully this will have the same effect. This can be titrated up to 2 g 3 times daily if needed. Charges/Coding Visit Charges Inpatient E&M: 06720 Subs Hosp L2
[2021-12-03 20:00] VITALS: BP 158/85; PULSE 75; RESP 16; TEMP 36.7; O2SAT 100
[2021-12-04] MEDS: traMADol 50 MG Tablet PO (00:30)
[2021-12-04 02:10] VITALS: BP 133/73; PULSE 84; RESP 16; TEMP 36.6; O2SAT 99
[2021-12-04 05:03] LABS: Anion Gap 11 (5-15); BUN 12 mg/dL (7-18); BUN/Creat Ratio 10.3 RATIO (10-20); Calcium,Total 6.1 mg/dL (8.5-10.1); Chloride 109 mmol/L (98-107); Creatinine, Serum 1.17 mg/dL (0.55-1.02); EST Glomerular Filtration Rate 48 mL/min (>60); Est Glom Filt Rate - Afr Amer 58 mL/min (>60); Estimated Creatinine Clearance 32.86 ml/min; Glucose 248 mg/dL (74-106); Magnesium 2.2 mg/dL (1.6-2.6); Phosphorus 2.6 mg/dL (2.5-4.9); Potassium 2.9 mmol/L (3.5-5.1); Sodium Level 140 mmol/L (136-145)
[2021-12-04] MEDS: Cholestyramine/Sucrose 4 GM/PACKET PO (06:19)
[2021-12-04] MEDS: Loperamide 2 MG Capsule 4 MG PO ×2 (06:53→12:15)
[2021-12-04] MEDS: Psyllium 1 PACKET PO (07:24)
[2021-12-04 07:54] VITALS: BP 131/69; PULSE 82; RESP 15; TEMP 36.6; O2SAT 98
[2021-12-04 07:59] LABS: PTHIN 812.7 pg/mL (18.4-80.1)
[2021-12-04 08:09] VITALS: O2SAT 97
[2021-12-04] MEDS: Potassium Chloride Oral Tablet 20 MEQ 40 MEQ PO (08:42)
[2021-12-04] MEDS: Pantoprazole Sodium 40 MG Tablet PO (10:34)
[2021-12-04] MEDS: Sodium Bicarbonate 650 MG Tablet PO (10:35)
[2021-12-04] MEDS: Cholecalciferol (Vit D3) 125 MCG CAPSULE (5,000 UNITS) PO (10:35)
--- NOTE | 2021-12-04 10:35 | DCINST_ITS ---
Discharge Instructions Diet Discharge Diet: No restrictions Dressing / Incision Call your doctor if you observe: Fever of 101 or Higher, Shortness of breath, Dizziness, Fainting spells, Swelling in the ankles, Chest pain and Increased palpitations (irregular heartbeat) Follow Up Care Test Results: Test results from this visit will be discussed in further detail at your follow- up appointment, if applicable. Discharge Plan Admission Admit Date/Time: 11/28/21 21:36 Attending Provider: Jethro Stephenson Primary Care Provider: Caty Hudson Consulting Providers: Geovanny Monroy ; Ml Pak ; Chase Wilkinson ; Yasmin Arndt ; Lainey Tanner ; Allie Burgess ; Amada Estrada NP ; Roseline Edmond Instructions Additional Instructions / Restrictions: Follow-up with your primary care doctor in 3 to 5 days to monitor your electrolytes. I would recommend obtaining a BMP as well as a magnesium and a phosphorus as an outpatient. Discharge Orders/Prescriptions Prescriptions: New octreotide acetate 500 mcg/mL Solution 0.5 mg subcut TID 30 Days Qty: 90 0RF pantoprazole 40 mg Tablet,Delayed Release (Dr/Ec) 40 mg PO BID 30 Days Qty: 60 0RF cholestyramine (with sugar) 4 gram Powder In Packet 4 g PO BIDAC 30 Days Qty: 60 0RF potassium chloride [Klor-Con M20] 20 mEq Tablet,Er Particles/Crystals 40 meq PO BIDCM 30 Days Qty: 120 0RF cholecalciferol (vitamin D3) 125 mcg (5,000 unit) Capsule 125 mcg PO DAILY 30 Days Qty: 30 0RF Daily Fiber (psyllium-aspart) 3 gram Powder In Packet 1 packet PO TID 30 Days Qty: 90 0RF prednisone 20 mg tablet 40 mg PO DAILY Qty: 20 0RF calcium carbonate [Tums] 300 mg (750 mg) tablet,chewable 300 mg PO TID Qty: 90 0RF Continued multivitamin Tablet 1 tab PO DAILY lorazepam [Ativan] 0.5 mg tablet 0.5 mg PO TID PRN (Reason: Anxiety) acidophilus-pectin, citrus 1 TABLET tablet 1 tab PO BID Qty: 60 0RF aripiprazole 5 MG tablet 5 mg PO DAILY metoprolol tartrate 25 MG tablet 25 mg PO DAILY duloxetine 60 mg capsule,delayed release(DR/EC) 120 mg PO DAILY oxybutynin chloride 10 mg tablet extended release 24hr 10 mg PO DAILY tramadol 50 mg tablet 50 mg PO TID PRN (Reason: Pain) promethazine 25 mg tablet 25 mg PO Q6H PRN (Reason: Nausea) cephalexin 500 MG capsule 500 mg PO Q6 Qty: 28 0RF loperamide 2 mg Capsule 4 mg PO Q6H PRN (Reason: Diarrhea) ondansetron HCl 4 mg Tablet 4 mg PO Q6H Antacid Chew 2 tab PO/SL BID acetaminophen 500 mg Tablet 1,000 mg PO TID melatonin 5 mg Tablet 5 mg PO QHS mesalamine 0.375 gram Capsule,Extended Release 24hr 0.375 g PO BID magnesium oxide 400 mg magnesium Tablet 400 mg PO BID Discontinued colestipol [Colestid] 1 gram tablet 2 g PO BID pantoprazole 40 MG tablet 40 mg PO DAILY Qty: 30 0RF calcium citrate-vitamin D3 315 mg-6.25 mcg (250 unit) Tablet 2 tab PO DAILY Referrals / Follow Up: Caty Hudson [Other] Caty Hudson [Other] Disposition Disposition (needs filled in before D/C Order can be placed): Assisted Living
[2021-12-04] MEDS: ARIPiprazole 5 MG Tablet PO (10:36)
[2021-12-04] MEDS: Menthol/Lanolin/Calamine/Znox 113 GM Tube 1 APPLIC TOPICAL (10:36)
[2021-12-04] MEDS: MESALAMINE 400 MG CAPSULE.DR PO (10:36)
[2021-12-04] MEDS: DULoxetine Hcl 60 MG Capsule 120 MG PO (11:00)
[2021-12-04] MEDS: Heparin Injection (Vial) 5,000 UNIT/ML VIAL 5000 UNIT SC (11:00)
[2021-12-04 11:01] VITALS: BP 141/79; PULSE 94
[2021-12-04] MEDS: Metoprolol Tartrate 25 MG Tablet PO (11:01)
[2021-12-04] MEDS: NYSTATIN 500,000 UNIT/5 ML UDC 500000 UNIT PO (11:05)
--- NOTE | 2021-12-04 11:10 | CASEMGMT ---
Social Work Per physician, pt is ready for discharge today. SW met with pt and discussed discharge. Pt agreeable to return to [facility] at [facility] today and is aware that [facility] will be meeting with her once she is there. Pt states she believes her daughter will be able to transport her. Phone call placed to pt dgt Stephani Camarillo and informed of discharge plan. Stephani confirms she will be able to transport pt and that [facility] plans to meet with pt once at the [facility] Stephani to pick pt up at noon. Phone call to Tia at [facility] and updated on discharge day and time. Discharge orders faxed. Phone call to the [facility] at [facility] and informed of discharge date and time and that [facility] will be following up at the facility. Orders faxed. Nursing updated. Plan: [facility] at [facility] Assisted Living with [facility] ANAID Velásquez
[2021-12-04] MEDS: 0.9% Saline Lock 10 ML Syringe IV (11:19)
[2021-12-04 11:47] VITALS: BP 141/79; PULSE 94; RESP 16; TEMP 36.5; O2SAT 99
--- NOTE | 2021-12-04 12:02 | NURSING ---
Called the Inn at [facility] and gave report - spoke with Payton kolb
[2021-12-06 07:44] LABS: Vitamin D 1,25-Dihydroxy 84.9 pg/mL (24.8-81.5)
== END 2021-12-04 12:30 | disposition home or self-care (01) | DRG 393 ==
LOC: ED 16:55 → MS3 17:59
PROVIDERS: Internal Medicine; Internal Medicine Gastroenterology; Admitting Provider Internal Medicine; Emergency Provider Student in an Organized Health Care Education/Training Program; Visit Provider Family Medicine
DX: K52.1 Toxic gastroenteritis and colitis (principal); E43 Unspecified severe protein-calorie malnutrition; C78.01 Secondary malignant neoplasm of right lung; C78.02 Secondary malignant neoplasm of left lung; C79.51 Secondary malignant neoplasm of bone; C22.1 Intrahepatic bile duct carcinoma; K50.90 Crohn's disease, unspecified, without complications; E87.2 Acidosis; N39.0 Urinary tract infection, site not specified; K90.9 Intestinal malabsorption, unspecified; E83.39 Other disorders of phosphorus metabolism; D69.6 Thrombocytopenia, unspecified; D46.9 Myelodysplastic syndrome, unspecified; J44.9 Chronic obstructive pulmonary disease, unspecified; E21.3 Hyperparathyroidism, unspecified; N18.31 Chronic kidney disease, stage 3a; R11.2 Nausea with vomiting, unspecified; B96.1 Klebsiella pneumoniae [K. pneumoniae] as the cause of diseases classified elsewhere; F41.9 Anxiety disorder, unspecified; G43.909 Migraine, unspecified, not intractable, without status migrainosus; I12.9 Hypertensive chronic kidney disease with stage 1 through stage 4 chronic kidney disease, or unspecified chronic kidney disease; I95.9 Hypotension, unspecified; E83.42 Hypomagnesemia; D53.9 Nutritional anemia, unspecified; F32.A Depression, unspecified; M81.0 Age-related osteoporosis without current pathological fracture; Z86.711 Personal history of pulmonary embolism; Z79.899 Other long term (current) drug therapy; Z87.891 Personal history of nicotine dependence; Z90.49 Acquired absence of other specified parts of digestive tract; Z68.22 Body mass index [BMI] 22.0-22.9, adult; T45.1X5A Adverse effect of antineoplastic and immunosuppressive drugs, initial encounter
CPT/HCPCS: 36415; 36591; 36600; 71045; 80048; 80053; 81001; 82040; 82652; 82803; 83605; 83630; 83735; 83970; 84100; 84484; 85014; 85018; 85025; 85610; 85652; 85730; 86140; 87040; 87086; 87088; 87177; 87209; 87426; 87493; 87506; 87811; 93005; 94640; 97802; 99285; J7030; J7050; P9612; A4216; J0610; J2405